=== PATIENT | male | born 1945 | race Hispanic/Latino ===

== ENCOUNTER 2018-04-17 13:02 | Inpatient (IN) | payer MEDICARE, OTHER ==
[2018-04-17 14:42] LABS: #Basophils 0.1 thou/uL (0.0-0.2); #Eosinphils 0.2 thou/uL (0.0-0.7); #Lymphocytes 1.3 thou/uL (1.20-3.40); #Monocytes 0.5 thou/uL (0.11-0.59); #Neutrophils 3.4 thou/uL (1.40-6.50); %Eosinophils 3.2 % (0.0-10.0); %Lymphocytes 23.9 % (21.0-51.0); %Monocytes 9.8 % (0.0-10.0); %Neutrophils 62.1 % (42.0-75.0); Hemoglobin 11.7 g/dL (14.0-18.0); Mean Corpuscular HGB CONC 31.6 g/dL (32.0-36.0); Mean Corpuscular Volume 91.8 fL (78.0-98.0); Mean Platelet Volume 7.9 fL (7.4-10.4); Platelet Count 148 thou/uL (130-400); RBC Distribution Width 12.4 % (11.5-14.5); Red Blood Cell (RBC) Count 4.03 mill/uL (4.70-6.10); White Blood Cell (WBC) Count 5.5 thou/uL (4.8-10.8)
[2018-04-17 15:05] LABS: ALT (SGPT) 22 U/L (8-55); AST (SGOT) 16 U/L (5-34); Albumin 4.1 g/dL (3.4-4.8); Alkaline Phosphatase 125 U/L (40-150); Anion Gap 14 mmol/L (10-20); BUN (Urea Nitrogen) 71 mg/dL (8.4-25.7); Bilirubin, Total 0.5 mg/dL (0.2-1.2); Calc. Creatinine Clearance 0 mL/min (70-130); Calcium 9.4 mg/dL (7.8-10.44); Carbon Dioxide 21 mmol/L (23-31); Chloride 110 mmol/L (98-107); Estimated GFR-MDRD 9; Globulin 3.3 g/dL (2.4-3.5); Glucose 86 mg/dL (80-115); Potassium 4.9 mmol/L (3.5-5.1); Protein, Total 7.4 g/dL (5.8-8.1); Sodium 140 mmol/L (136-145)
[2018-04-17] MEDS ORDERED: cloNIDine 0.1 MG TAB ONE (17:28)
[2018-04-17] MEDS ORDERED: hydrALAZINE 25 MG TAB PO SCH ×2 (18:30→22:30)
[2018-04-17 19:33] LABS: Bilirubin Negative (Negative); Blood, Urine Small (Negative); Clarity CLEAR (Clear); Glucose, Urine (Dipstick) Negative (Negative); Leukocyte Negative (Negative); Nitrite Negative (Negative); Protein, Urine (Dipstick) > or equal to 300 mg/dL (Neg-Trace); Specific Gravity, Urine 1.014 (1.002-1.036); Urobilinogen 0.2 mg/dL (0.2-1.0); pH, Urine 6.5 (5.0-9.0)
[2018-04-17 19:34] LABS: Bacteria/HPF None Seen HPF (None Seen); Hyaline Casts/LPF 0-3 HYALINE CAST LPF (0-3 Hyaline); Pathc Cast-AUWi Flag 0.58 (0-2.49); RBC/HPF 0-3 HPF (0-3); Squamous Epithelial 0-3 HPF (0-3); WBC/HPF 0-3 HPF (0-3)
[2018-04-17] MEDS ORDERED: hydrALAZINE 25 MG TAB ONE (20:05)
--- NOTE | 2018-04-17 20:47 | HP ---
PRIMARY CARE PHYSICIAN: Susana Zafar MD PAPER BAGS SEWING MACHINE OPERATOR,: Herman Centeno MD CHIEF COMPLAINT: Hyperkalemia. HISTORY OF PRESENT ILLNESS: This is a 72-year-old male with history of insulin-dependent diabetes mellitus and hypertension. He had blood drawn by Dr. Zafar that showed an elevated creatinine, greater than 5, and a potassium of 6.5. The patient does not remember ever seeing a microcomputer support specialist, but was apparently somehow given some Kayexalate by Dr. Tapia. The patient presented to the emergency room today for blood recheck. Potassium was down to 4.9 with the Kayexalate. Creatinine was further up at 6.13. Dr. Tapia was notified by the emergency room and asked to admit the patient for end-stage renal failure. The patient does report that he has been short of breath for the last 1-2 weeks. This is both at rest and with activity and with lying down flat. No other specific complaints at this time. PAST MEDICAL HISTORY: 1. Diabetes mellitus, insulin dependent. 2. Hypertension. 3. Now with renal failure, though the patient denies a previous history of renal failure. PAST SURGICAL HISTORY: None. SOCIAL HISTORY: No tobacco, alcohol, or illicit drug use. The patient is , and lives with his . FAMILY HISTORY: None. ALLERGIES: NO KNOWN DRUG ALLERGIES. CURRENT MEDICATIONS: 1. Hydralazine 100 mg twice a day. 2. Labetalol 200 mg twice a day. 3. Montelukast 10 mg daily. 4. Atorvastatin 20 mg daily. 5. Furosemide 20 mg daily. 6. Hydroxyzine 25 mg daily. 7. Dexilant 60 mg daily. 8. Levemir 30 units twice a day. REVIEW OF SYSTEMS: CONSTITUTIONAL: No fevers. He did have some chills earlier. EYES: No double vision or blurred vision. ENT: No congestion, drainage, or sore throat. CARDIOVASCULAR: No chest pain. No palpitations or racing heart. PULMONARY: He had shortness of breath for the last couple of weeks. No coughing or wheezing. GASTROINTESTINAL: No abdominal pain. No nausea or vomiting. No diarrhea or constipation. GENITOURINARY: He has not noticed any decrease in his urine output. No dysuria or hematuria. MUSCULOSKELETAL: No muscle aches or joint pains. SKIN: No rashes or other lesions he has noted. NEUROLOGIC: He has not noticed any numbness, tingling, or focal weakness. PHYSICAL EXAMINATION: VITAL SIGNS: Blood pressure 176/90, pulse 78, respirations 18, temperature 97.8 , O2 saturation 98% on room air. GENERAL: This is a well-developed, well-nourished male, in no acute distress. HEENT: Pupils are equal, round, and reactive to light. Oropharynx is clear without lesions, erythema, or exudate. NECK: Supple. No lymphadenopathy. No thyroid nodules or enlargement. No JVD. HEART: Regular rate and rhythm. No murmurs, rubs, or gallops. LUNGS: Clear to auscultation bilaterally. No wheezes, crackles, or rhonchi. ABDOMEN: Soft, nontender to palpation. Normoactive bowel sounds. No hepatosplenomegaly or other masses. EXTREMITIES: No clubbing, cyanosis, or edema. SKIN: No rashes or lesions noted. NEUROLOGIC: Intact strength and sensation in all extremities. No facial droop. LABORATORY DATA: CBC with a hemoglobin of 11.7, hematocrit 37.0. The rest is normal. Complete metabolic panel is notable for chloride of 110, carbon dioxide of 21, BUN of 71, creatinine of 6.13. Potassium is currently 4.9. Creatine kinase is 194. The rest of the complete metabolic panel is normal. Troponins negative x2. Renal ultrasound done in the ER, radiologist's report is not back yet. ASSESSMENT: 1. Stage 5 kidney disease with hyperkalemia, improved with Kayexalate. Concern for end-stage renal disease, he is going to require dialysis. The patient does have some evidence by symptoms and by his severely elevated blood pressures over 200 systolic on arrival, that he is volume overloaded as well. He did receive some fluids in the ER per Dr. Taipa's orders. We will go ahead and stop any further fluids at this point doing his blood pressure under better control. We will write for the consents for hemodialysis and recheck patient's potassium in the morning. 2. Hypertensive urgency. On arrival, now down with 0.1 of clonidine and 100 mg of hydralazine orally in the ER. Troponins are negative. We will monitor closely and give p.r.n. medications along with resuming patient's home medications. I am going to hold off on the Lasix of course. 3. Diabetes mellitus, insulin dependent. The patient's blood sugar is low normal at this time. He is having worsening renal function. So, I am concerned about the effects of the insulin. We will give him a half dose of insulin at this time, 15 units twice a day of Lantus and we will monitor his blood sugars before meals and at bedtime and we will bring this up if it is needed while he is in the hospital. 4. Gastrointestinal prophylaxis. We will resume PPI. 5. Deep venous thrombosis prophylaxis. We will put the patient on SCDs while in bed. 6. code status. I did discuss this with the patient with the drug safety coordinator in the ER. The patient is a full code. Should he be incapacitated, his would be his medical decision maker, her name is Esha Henderson. Job ID: [id number] MTDD
--- NOTE | 2018-04-17 20:53 | ULT ---
RENAL ULTRASOUND: 04/17/18 HISTORY: Flank pain. Real time imaging of the right and left kidneys were performed. The right kidney measures 10.7 cm in size but is of increased echogenicity with cortical thinning. There are cysts involving the mid to up per pole and lower pole regions. The largest lower pole cyst measuring 2.3 cm. The left kidney is kurt y difficult to visualize due to bowel gas. It is not obstructed. It measures approximately 9.1 cm in length. It also shows increased echogenicity. Bladder region is unremarkable. IMPRESSION: Technically difficult exam. Increased echogenicity to both kidneys suggests underlying medical renal parenchymal disease. No obstruction. Right sided renal cyst. POS: EMIR
[2018-04-17] MEDS ORDERED: Sodium Chloride 0.9% 1,000 ML IV SCH (21:58)
[2018-04-17] MEDS ORDERED: hydrALAZINE 20 MG/ML VIAL SLOW IVP PRN (21:59)
[2018-04-17] MEDS ORDERED: Dextrose 50% Abboject 50 ML SYRINGE SLOW IVP PRN (21:59)
[2018-04-17] MEDS ORDERED: HumaLOG 300 UNITS/3 ML VIAL SC PRN (21:59)
[2018-04-17] MEDS ORDERED: cloNIDine 0.1 MG TAB PO PRN (21:59)
[2018-04-17] MEDS ORDERED: Ondansetron ODT 4 MG TAB PO PRN (21:59)
[2018-04-17] MEDS ORDERED: Ondansetron PF 4 MG/2 ML Vial IVP PRN (21:59)
[2018-04-17] MEDS ORDERED: Acetaminophen 325 MG TAB PO PRN (21:59)
[2018-04-17] MEDS ORDERED: Acetaminophen 650 MG Suppository PR PRN (21:59)
[2018-04-17] MEDS ORDERED: Dextrose 5% in Water 1,000 ML IV PRN (21:59)
[2018-04-17] MEDS ORDERED: Labetalol 100 MG TAB PO SCH (22:30)
[2018-04-17] MEDS ORDERED: Atorvastatin Calcium 20 MG TAB PO SCH (22:30)
[2018-04-17] MEDS ORDERED: Insulin Glargine 15 UNITS in Pre-Filled Syringe 1 EACH SC SCH (22:30)
[2018-04-17] MEDS ORDERED: Tuberculin PPD 0.1 ML VIAL I-DERMAL SCH (22:30)
[2018-04-17] MEDS ORDERED: Montelukast Sodium 10 mg Tablet PO SCH (22:30)
--- NOTE | 2018-04-17 22:57 | CON ---
DATE OF CONSULTATION: HISTORY OF PRESENT ILLNESS: Mr. Henderson is a 72-year-old [place] male, Icelandic speaking, who was admitted due to his chronic renal failure. A few days ago, he was noted to be hyperkalemic. He was given Kayexalate with lactulose at that time. His creatinine was rechecked and it had shown to have further progressed to a most recent value of 6.13. His GFR is now noted at 10 mL/minute. He was advised admission for possible initiation of dialysis. For the moment, the patient has been admitted for empiric volume repletion to see if I could improve his renal function. He is here with his son, Angelito. We are here to follow up the patient for further management of his chronic renal failure. REVIEW OF SYSTEMS: No chest pain. Appetite is decreased. Energy level is decreased. No nausea. No vomiting. No tremors. No asterixis. No productive cough. No fever or chills. No gross hematuria. No dysuria. No urinary frequency. No hematochezia. No melena. No hematemesis. No syncopal episode. No fever or chills. HOME MEDICATIONS: 1. Levemir 30 units subcu b.i.d. 2. Hydralazine 100 mg twice a day. 3. Labetalol 200 mg twice a day. 4. Singulair 10 mg once a day. 5. Atorvastatin 20 mg tablet at bedtime. 6. Furosemide 20 mg daily-on hold. 7. Hydroxyzine 25 mg daily p.r.n. 8. Dexilant 60 mg daily. PAST MEDICAL HISTORY: 1. Chronic renal failure from a presumed diabetic nephropathy. 2. Type 2 diabetes mellitus. 3. Hypertension. 4. Hyperlipidemia. 5. Gastroesophageal reflux disease. PAST SURGICAL HISTORY: Status post exploratory laparotomy. SOCIAL HISTORY: The patient is . Lives in [place]. He has five children. 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 Alcohol, none. Smoked for 20 years, 1/2 pack a day. No IV drug abuse. Education, 12th grade. FAMILY HISTORY: No family history of ESRD. ALLERGIES: NONE. TRAUMA: None. IMMUNIZATION: Unknown. HOSPITALIZATIONS: Please see past medical history. PHYSICAL EXAMINATION: VITAL SIGNS: Blood pressure is 160/90, with a heart rate of 69, weight 168 pounds, height 5 feet 2 inches, BMI 30. GENERAL: Awake, alert, comfortable, not in distress. SKIN: Adequate turgor. HEENT: Pinkish conjunctivae. Anicteric sclerae. No neck mass. No carotid bruits. No JVD. CHEST: No deformities. LUNGS: Clear breath sounds. HEART: Normal sinus rhythm. No murmur. No gallops or rubs. ABDOMEN: Globular, soft, nontender. No masses. EXTREMITIES: No edema no deformities. NEUROLOGICAL: Moving all extremities. No tremors. No asterixis. No ataxia. LABORATORY DATA: April 17, 2018; white count 5.5, hemoglobin 11.7. Sodium 140, potassium 4.9, chloride 110, carbon dioxide 21, BUN 71, creatinine 6.13, GFR 9 mL/minute. AST 16, ALT 22, CPK 194, troponin I 0.016. Urinalysis showed protein greater than 300, rbc's 0-3, wbc's 0-3. Renal ultrasound showed no obstruction, increased echogenicity of both kidneys. ASSESSMENT AND PLAN: 1. Chronic renal failure-with the proteinuria and longstanding history of diabetes mellitus, consider diabetic nephropathy. Please note, his GFR is noted to be at 9 mL/minute. We will try to empiric volume replete this patient to see if we can get some more improvement in the renal function. If there is no significant improvement, my bias is to consider dialyzing this patient. Please note that the renal ultrasound showed increased echogenicity of the kidneys. 2. Hypertension. Continue current BP medications. 3. Type 2 diabetes mellitus, currently on Levemir 30 units subcu b.i.d. 4. We will go ahead and check phosphorus and PTH with this patient. 5. Case discussed at length with the patient and his son, Angelito. Job ID: [id number]
[2018-04-18 05:12] LABS: #Eosinphils 0.1 thou/uL (0.0-0.7); #Lymphocytes 0.9 thou/uL (1.20-3.40); #Monocytes 0.4 thou/uL (0.11-0.59); #Neutrophils 2.7 thou/uL (1.40-6.50); %Basophils 0.8 % (0.0-1.0); %Eosinophils 1.8 % (0.0-10.0); %Lymphocytes 21.6 % (21.0-51.0); %Monocytes 10.6 % (0.0-10.0); %Neutrophils 65.1 % (42.0-75.0); Hemoglobin 10.6 g/dL (14.0-18.0); Mean Corpuscular HGB CONC 32.1 g/dL (32.0-36.0); Mean Corpuscular Hemoglobin 29.2 pg (27.0-31.0); Mean Corpuscular Volume 90.9 fL (78.0-98.0); Platelet Count 135 thou/uL (130-400); RBC Distribution Width 12.3 % (11.5-14.5); Red Blood Cell (RBC) Count 3.62 mill/uL (4.70-6.10); White Blood Cell (WBC) Count 4.2 thou/uL (4.8-10.8)
[2018-04-18 05:35] LABS: Phosphorus 5.7 mg/dL (2.3-4.7)
[2018-04-18 05:36] LABS: Anion Gap 13 mmol/L (10-20); BUN (Urea Nitrogen) 73 mg/dL (8.4-25.7); Calc. Creatinine Clearance 12 mL/min (70-130); Calcium 8.5 mg/dL (7.8-10.44); Carbon Dioxide 18 mmol/L (23-31); Chloride 114 mmol/L (98-107); Estimated GFR-MDRD 10; Glucose 126 mg/dL (80-115); Sodium 141 mmol/L (136-145)
[2018-04-18 05:58] LABS: HBSAB Concentration 1.12 mIU/mL; HBSAg Index 0.21 S/CO (0-0.99); Hep B Core Total Ab Non-Reactive (NonReactive); Hep B Core Total Index 0.08 S/CO (0-0.79); Hep B Surf AB Non-Reactive (NonReactive); Hep B Surf Ag Non-Reactive S/CO (NonReactive); Hep C IgG Ab Non-Reactive (NonReactive); Hep C Index 0.08 S/CO (0-0.79)
[2018-04-18] MEDS: hydrALAZINE 25 MG TAB PO SCH ×3 (08:52→20:33)
[2018-04-18] MEDS: Labetalol 100 MG TAB PO SCH ×2 (08:53→20:34)
[2018-04-18] MEDS: Sodium Chloride 0.9% 1,000 ML IV SCH ×2 (09:00→20:36)
[2018-04-18] MEDS ORDERED: Prevnar 13-Val Conj/PF 0.5 ML SYRINGE IM ONE (09:00)
--- NOTE | 2018-04-18 09:20 | PDOC.PN ---
- Subjective Encounter Start Date: 04/18/18 Encounter Start Time: 12:10 Subjective: No prolems overnight. No SOB. No abdominal pain. Says he feels a little bit -: weak, sunitha left leg. - Objective Resuscitation Status - Order Detail: 04/17/18 19:38 Resuscitation Status Routine Resuscitation Status: FULL: Full Resuscitation Discussed with: Patient ASHLEE Reviewed: Yes Vital Signs & Weight: Vital Signs (12 hours) Temp Pulse Resp BP BP BP Pulse Ox 04/18/18 08:53 77 159/73 H 04/18/18 08:52 77 159/73 H 04/18/18 07:44 97.6 F 77 18 159/73 H 96 04/18/18 04:02 97.7 F 92 16 136/67 95 04/17/18 23:29 97.6 F 88 16 133/65 95 04/17/18 22:54 75 142/66 H Weight Weight 164 lb I&O: 04/17/18 04/18/18 04/19/18 06:59 06:59 06:59 Intake Total 1100 Balance 1100 Result Diagrams: 04/18/18 04:45 04/18/18 04:45 Additional Labs: Accuchecks 04/17/18 22:52 POC Glucose 179 H Phys Exam - Physical Examination Constitutional: NAD HEENT: moist MMs Respiratory: no wheezing, no rales, no rhonchi Cardiovascular: RRR, no significant murmur Gastrointestinal: soft, non-tender, positive bowel sounds Musculoskeletal: no edema Neurological: non-focal, moves all 4 limbs 5/5 strength in all extremities Psychiatric: normal affect, A&O x 3 Dx/Plan (1) Acute renal failure superimposed on stage 5 chronic kidney disease, not on chronic dialysis Code(s): N17.9 - ACUTE KIDNEY FAILURE, UNSPECIFIED; N18.5 - CHRONIC KIDNEY DISEASE, STAGE 5 Status: Acute Comment: attempting treatment with hydration , dialysis if no improvement with fluids (2) Hypertensive urgency Code(s): I16.0 - HYPERTENSIVE URGENCY Status: Resolved (3) Hypertension Code(s): I10 - ESSENTIAL (PRIMARY) HYPERTENSION Status: Chronic Qualifiers: Hypertension type: essential hypertension Qualified Code(s): I10 - Essential (primary) hypertension Comment: improved control, will continue to titrate medications (4) Diabetes mellitus, insulin dependent (IDDM), controlled Code(s): E11.9 - TYPE 2 DIABETES MELLITUS WITHOUT COMPLICATIONS; Z79.4 - SETTER OUT (CURRENT) USE OF INSULIN Status: Chronic Comment: currently on half home insulin, BS ok, will increase back to 30unit BID if blood sugars are elevated (5) Hyperkalemia Code(s): E87.5 - HYPERKALEMIA Status: Resolved - Plan cont current plan of care, out of bed/ambulate, DVT proph w/SCDs * . - Discharge Day Encounter end time: 12:20
[2018-04-18] MEDS: Insulin Glargine 15 UNITS in Pre-Filled Syringe 1 EACH SC SCH ×2 (09:26→20:35)
--- NOTE | 2018-04-18 09:33 | PRG ---
DATE OF SERVICE: 04/18/2018 SUBJECTIVE: Mr. Henderson is a 72-year-old male with chronic renal failure from presumed diabetic nephropathy. He was admitted due to the worsening renal dysfunction. He has been started with volume repletion. This was done to see if I could get any more improvement with the renal function. If no significant improvement, the patient will be considered for dialytic intervention. No new complaints today. No chest pain or shortness of breath. OBJECTIVE: VITAL SIGNS: Blood pressure is 159/73, heart rate 77, respiratory rate 18, temperature 97.6, and pulse ox 96%. GENERAL: Awake, alert, comfortable, not in distress. SKIN: Adequate turgor. HEENT: Slightly pale conjunctivae. Anicteric sclerae. No neck mass. No carotid bruits. No JVD. CHEST: No deformities. LUNGS: Clear breath sounds. No wheezing. No crackles. HEART: Normal sinus rhythm. No murmurs, gallops, or rubs. ABDOMEN: Globular, soft, nontender. No masses. EXTREMITIES: No edema. No deformities. MEDICATIONS: Medications of April 18, 2018, was reviewed. LABORATORY DATA: Laboratories of April 18, 2018, white count 4.2, hemoglobin 10.6, sodium 141, potassium 4, chloride 114, carbon dioxide 18, BUN 73, creatinine 5.87, GFR 10 mL/minute, glucose 126, calcium 8.5, phosphorus 5.7, PTH 679. ASSESSMENT AND PLAN: 1. Chronic renal failure from diabetic nephropathy. Continue empiric volume repletion to see where the renal function will plateau. If no significant improvement, consider initiating dialysis if the patient will agree to this. 2. Hyperphosphatemia. Renvela 800 mg one tablet t.i.d. with meals. 3. Secondary hyperparathyroidism. Calcitriol 0.25 mcg tablet daily was started. Overall, prognosis remains guarded. Continue normal saline at 100 mL/h. Job ID: [id number]
[2018-04-18] MEDS: Calcitriol 0.25 MCG CAP PO SCH (10:30)
[2018-04-18] MEDS: Sevelamer Carbonate 800 MG TAB PO SCH ×2 (12:40→18:03)
[2018-04-18] MEDS: HumaLOG 300 UNITS/3 ML VIAL SC PRN (12:44)
[2018-04-18] MEDS: Atorvastatin Calcium 20 MG TAB PO SCH (20:33)
[2018-04-18] MEDS: Montelukast Sodium 10 mg Tablet PO SCH (21:32)
[2018-04-19] MEDS: Sodium Chloride 0.9% 1,000 ML IV SCH ×2 (06:22→17:29)
[2018-04-19 07:04] LABS: #Basophils 0.1 thou/uL (0.0-0.2); #Eosinphils 0.1 thou/uL (0.0-0.7); #Lymphocytes 0.9 thou/uL (1.20-3.40); #Monocytes 0.5 thou/uL (0.11-0.59); #Neutrophils 3.6 thou/uL (1.40-6.50); %Basophils 1.1 % (0.0-1.0); %Eosinophils 2.1 % (0.0-10.0); %Monocytes 10.3 % (0.0-10.0); %Neutrophils 69.5 % (42.0-75.0); Hemoglobin 9.9 g/dL (14.0-18.0); Mean Corpuscular HGB CONC 32.2 g/dL (32.0-36.0); Mean Corpuscular Hemoglobin 28.6 pg (27.0-31.0); Mean Corpuscular Volume 88.8 fL (78.0-98.0); Mean Platelet Volume 7.9 fL (7.4-10.4); Platelet Count 137 thou/uL (130-400); RBC Distribution Width 12.4 % (11.5-14.5); Red Blood Cell (RBC) Count 3.47 mill/uL (4.70-6.10); White Blood Cell (WBC) Count 5.2 thou/uL (4.8-10.8)
[2018-04-19 07:21] LABS: Anion Gap 13 mmol/L (10-20); BUN (Urea Nitrogen) 65 mg/dL (8.4-25.7); Calc. Creatinine Clearance 14 mL/min (70-130); Calcium 8.3 mg/dL (7.8-10.44); Carbon Dioxide 16 mmol/L (23-31); Chloride 117 mmol/L (98-107); Estimated GFR-MDRD 10; Glucose 107 mg/dL (80-115); Potassium 3.8 mmol/L (3.5-5.1); Sodium 142 mmol/L (136-145)
[2018-04-19] MEDS: Sodium Bicarbonate Tab 325 MG TAB PO SCH ×3 (09:24→20:13)
[2018-04-19] MEDS: hydrALAZINE 25 MG TAB PO SCH ×3 (09:27→20:11)
[2018-04-19] MEDS: Calcitriol 0.25 MCG CAP PO SCH (09:28)
[2018-04-19] MEDS: Labetalol 100 MG TAB PO SCH ×2 (09:28→20:12)
[2018-04-19] MEDS: Sevelamer Carbonate 800 MG TAB PO SCH ×3 (09:28→17:30)
[2018-04-19] MEDS: Insulin Glargine 15 UNITS in Pre-Filled Syringe 1 EACH SC SCH ×2 (09:29→20:13)
--- NOTE | 2018-04-19 09:35 | PDOC.PN ---
- Subjective Encounter Start Date: 04/19/18 Encounter Start Time: 10:10 Subjective: No SOB, no chest pain. No other complaints. Patient resistent to the -: idea of dialysis. Concern for likely rebound with hyperkalemia or -: volume overload if d/c. - Objective Resuscitation Status - Order Detail: 04/17/18 19:38 Resuscitation Status Routine Resuscitation Status: FULL: Full Resuscitation Discussed with: Patient MAR Reviewed: Yes Vital Signs & Weight: Vital Signs (12 hours) Temp Pulse Resp BP Pulse Ox 04/19/18 08:00 97.8 F 73 18 153/66 H 93 L Weight Weight 171 lb 15.369 oz I&O: 04/18/18 04/19/18 04/20/18 06:59 06:59 06:59 Intake Total 1100 3040 Output Total 1470 Balance 1100 1570 Result Diagrams: 04/19/18 06:35 04/19/18 06:35 Additional Labs: Accuchecks 04/19/18 04/18/18 04/18/18 05:16 20:45 16:51 POC Glucose 78 92 114 H 04/18/18 11:44 POC Glucose 183 H Phys Exam - Physical Examination Constitutional: NAD HEENT: moist MMs Respiratory: no wheezing, no rales, no rhonchi, clear to auscultation bilateral Cardiovascular: RRR, no significant murmur Gastrointestinal: soft Neurological: non-focal, moves all 4 limbs Psychiatric: normal affect, A&O x 3 Dx/Plan (1) Acute renal failure superimposed on stage 5 chronic kidney disease, not on chronic dialysis Code(s): N17.9 - ACUTE KIDNEY FAILURE, UNSPECIFIED; N18.5 - CHRONIC KIDNEY DISEASE, STAGE 5 Status: Acute Comment: attempting treatment with hydration , will monitor over the weekend (2) Hypertensive urgency Code(s): I16.0 - HYPERTENSIVE URGENCY Status: Resolved (3) Hypertension Code(s): I10 - ESSENTIAL (PRIMARY) HYPERTENSION Status: Chronic Qualifiers: Hypertension type: essential hypertension Qualified Code(s): I10 - Essential (primary) hypertension Comment: improved control, will continue to titrate medications (4) Diabetes mellitus, insulin dependent (IDDM), controlled Code(s): E11.9 - TYPE 2 DIABETES MELLITUS WITHOUT COMPLICATIONS; Z79.4 - CORRECTION (CURRENT) USE OF INSULIN Status: Chronic Comment: currently on half home insulin, BS ok, will increase back to 30unit BID if blood sugars are elevated (5) Hyperkalemia Code(s): E87.5 - HYPERKALEMIA Status: Resolved - Plan cont current plan of care Dr. Tapia monitoring over the weekend. * . - Discharge Day Encounter end time: 10:20
--- NOTE | 2018-04-19 10:04 | PRG ---
DATE OF SERVICE: 04/19/2018 SUBJECTIVE: Mr. Henderson is a 72-year-old male, non-Kittitian speaking, was admitted for an acute kidney injury on top of his chronic renal failure. GFR was noted to be less than 10 mL/minute. Empiric volume repletion was done to see if I could get any more renal improvement. Please note, his renal ultrasound showed a lot of echogenicity. In addition, urine showed proteinuria, and he has a longstanding history of diabetes mellitus making diabetic nephropathy most likely. He is tolerating the current IV fluid. No other complaints. No chest pain or shortness of breath. OBJECTIVE: VITAL SIGNS: Blood pressure 153/66, heart rate 73, respiratory rate 18, temperature 97.8, and pulse ox 93%. GENERAL: Awake, alert, comfortable, not in distress. SKIN: Adequate turgor. HEENT: He has pinkish conjunctivae. Anicteric sclerae. NECK: No neck mass. No carotid bruits. No JVD. CHEST: No deformities. LUNGS: Clear breath sounds. HEART: Normal sinus rhythm. No murmurs, gallops, or rubs. ABDOMEN: Globular, soft, nontender. No masses. EXTREMITIES: No edema. No deformities. MEDICATIONS: Medications of 04/19/2018 was reviewed. LABORATORY DATA: Laboratories of 04/19/2018, white count 5.2, hemoglobin 9.9. Sodium 142, potassium 3.8, chloride 117, carbon dioxide 16, BUN 65, creatinine 5.47, glucose 107, calcium 8.3. ASSESSMENT AND PLAN: 1. Anemia. Start ferrous sulfate 325 mg tablet b.i.d. 2. Secondary hyperparathyroidism/hyperphosphatemia-started on medications. 3. Acute kidney injury/chronic renal failure. Minimal improvement of GFR. Continue IV hydration. If GFR is not significantly improved by weekend, consider initiating dialysis. I will be getting in touch with the patient's family regarding dialysis. The patient is still hesitant to consider dialysis. Overall, I agree with current management. Recheck basic metabolic panel and CBC in a.m. Job ID: [id number]
[2018-04-19] MEDS: HumaLOG 300 UNITS/3 ML VIAL SC PRN (13:29)
[2018-04-19] MEDS: Ferrous Sulfate 325 MG TAB PO SCH (17:30)
[2018-04-19] MEDS: Atorvastatin Calcium 20 MG TAB PO SCH (20:11)
[2018-04-19] MEDS: Montelukast Sodium 10 mg Tablet PO SCH (20:13)
[2018-04-20] MEDS: Sodium Chloride 0.9% 1,000 ML IV SCH ×2 (03:35→15:16)
[2018-04-20 07:37] LABS: #Eosinphils 0.2 thou/uL (0.0-0.7); #Monocytes 0.6 thou/uL (0.11-0.59); #Neutrophils 3.6 thou/uL (1.40-6.50); %Basophils 0.5 % (0.0-1.0); %Eosinophils 3.4 % (0.0-10.0); %Lymphocytes 18.3 % (21.0-51.0); %Monocytes 10.3 % (0.0-10.0); %Neutrophils 67.5 % (42.0-75.0); Hemoglobin 9.8 g/dL (14.0-18.0); Mean Corpuscular HGB CONC 32.4 g/dL (32.0-36.0); Mean Corpuscular Volume 89.5 fL (78.0-98.0); Platelet Count 136 thou/uL (130-400); RBC Distribution Width 12.5 % (11.5-14.5); Red Blood Cell (RBC) Count 3.38 mill/uL (4.70-6.10); White Blood Cell (WBC) Count 5.4 thou/uL (4.8-10.8)
[2018-04-20 07:56] LABS: Anion Gap 11 mmol/L (10-20); BUN (Urea Nitrogen) 51 mg/dL (8.4-25.7); Calc. Creatinine Clearance 15 mL/min (70-130); Calcium 8.3 mg/dL (7.8-10.44); Carbon Dioxide 17 mmol/L (23-31); Chloride 115 mmol/L (98-107); Estimated GFR-MDRD 11; Glucose 94 mg/dL (80-115); Potassium 3.8 mmol/L (3.5-5.1); Sodium 139 mmol/L (136-145)
[2018-04-20] MEDS: Labetalol 100 MG TAB PO SCH ×2 (08:18→21:15)
[2018-04-20] MEDS: Sodium Bicarbonate Tab 325 MG TAB PO SCH ×3 (08:18→21:09)
[2018-04-20] MEDS: Ferrous Sulfate 325 MG TAB PO SCH ×2 (08:19→16:26)
[2018-04-20] MEDS: hydrALAZINE 25 MG TAB PO SCH ×3 (08:19→21:10)
[2018-04-20] MEDS: Calcitriol 0.25 MCG CAP PO SCH (08:19)
[2018-04-20] MEDS: Sevelamer Carbonate 800 MG TAB PO SCH ×3 (08:19→16:26)
[2018-04-20] MEDS: Insulin Glargine 15 UNITS in Pre-Filled Syringe 1 EACH SC SCH ×2 (08:22→21:16)
--- NOTE | 2018-04-20 12:23 | PDOC.PN ---
- Subjective Encounter Start Date: 04/20/18 Encounter Start Time: 09:45 -: old records requested/rev Patient seen and examined. No new complaints. No overnight events - Objective Resuscitation Status - Order Detail: 04/17/18 19:38 Resuscitation Status Routine Resuscitation Status: FULL: Full Resuscitation Discussed with: Patient ASHLEE Reviewed: Yes Vital Signs & Weight: Vital Signs (12 hours) Temp Pulse Resp BP BP BP Pulse Ox 04/20/18 11:30 97.5 F L 71 16 151/73 H 97 04/20/18 08:19 72 137/62 04/20/18 08:18 72 137/62 04/20/18 08:10 97.9 F 72 18 137/62 94 L 04/20/18 08:00 94 L 04/20/18 05:00 145/67 H 04/20/18 04:00 97.9 F 74 18 179/63 H 96 04/20/18 00:29 98.1 F 74 18 145/66 H 96 Weight Weight 171 lb 15.369 oz I&O: 04/19/18 04/20/18 04/21/18 06:59 06:59 06:59 Intake Total 3040 3300 Output Total 1470 600 Balance 1570 2700 Result Diagrams: 04/20/18 06:49 04/20/18 06:49 Additional Labs: Accuchecks 04/20/18 04/20/18 04/19/18 11:34 04:32 19:28 POC Glucose 133 H 82 177 H 04/19/18 04/19/18 16:40 12:54 POC Glucose 138 H 191 H Phys Exam - Physical Examination Constitutional: NAD HEENT: PERRLA, moist MMs, sclera anicteric Neck: no JVD, supple Respiratory: no wheezing, no rales, no rhonchi Cardiovascular: RRR, no significant murmur, no rub Gastrointestinal: soft, non-tender, no distention, positive bowel sounds Musculoskeletal: no edema, pulses present Neurological: non-focal, normal sensation Lymphatic: no nodes Psychiatric: normal affect, A&O x 3 Skin: no rash, normal turgor Dx/Plan (1) Acute renal failure superimposed on stage 5 chronic kidney disease, not on chronic dialysis Code(s): N17.9 - ACUTE KIDNEY FAILURE, UNSPECIFIED; N18.5 - CHRONIC KIDNEY DISEASE, STAGE 5 Status: Acute Comment: attempting treatment with hydration , will monitor over the weekend (2) Anemia of renal disease Code(s): N18.9 - CHRONIC KIDNEY DISEASE, UNSPECIFIED; D63.1 - ANEMIA IN CHRONIC KIDNEY DISEASE Status: Chronic (3) Diabetes mellitus, insulin dependent (IDDM), controlled Code(s): E11.9 - TYPE 2 DIABETES MELLITUS WITHOUT COMPLICATIONS; 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 Status: Chronic Comment: currently on half home insulin, BS ok, will increase back to 30unit BID if blood sugars are elevated (4) Hypertension Code(s): I10 - ESSENTIAL (PRIMARY) HYPERTENSION Status: Chronic Qualifiers: Hypertension type: essential hypertension Qualified Code(s): I10 - Essential (primary) hypertension Comment: improved control, will continue to titrate medications (5) Hyperkalemia Code(s): E87.5 - HYPERKALEMIA Status: Resolved (6) Hypertensive urgency Code(s): I16.0 - HYPERTENSIVE URGENCY Status: Resolved - Plan cont current plan of care * medication reviewed as below * symptomatic treatment * pt to decide about HD * nephrology on board. Review of Systems - Review of Systems ENT: negative: Ear Pain, Ear Discharge, Nose Pain, Nose Discharge, Nose Congestion, Mouth Pain, Mouth Swelling, Throat Pain, Throat Swelling, Other Respiratory: negative: Cough, Dry, Shortness of Breath, Hemoptysis, SOB with Excertion, Pleuritic Pain, Sputum, Wheezing Cardiovascular: negative: chest pain, palpitations, orthopnea, paroxysmal nocturnal dyspnea, edema, light headedness, other Gastrointestinal: negative: Nausea, Vomiting, Abdominal Pain, Diarrhea, Constipation, Melena, Hematochezia, Other Genitourinary: negative: Dysuria, Frequency, Incontinence, Hematuria, Retention , Other Musculoskeletal: negative: Neck Pain, Shoulder Pain, Arm Pain, Back Pain, Hand Pain, Leg Pain, Foot Pain, Other - Medications/Allergies Allergies/Adverse Reactions: Allergies Allergy/AdvReac Type Severity Reaction Status Date / Time No Known Allergies Allergy Verified 04/17/18 23:38 Medications: Current Medications Acetaminophen (Tylenol) 650 mg PO Q4H PRN PRN Reason: Headache/Fever/Mild Pain (1-3) Acetaminophen (Tylenol) [address] Q4H PRN PRN Reason: Headache/Fever/Mild Pain (1-3) Atorvastatin Calcium (Lipitor) 20 mg PO [facility] Last Admin: 04/19/18 20:11 Dose: 20 mg Calcitriol (Rocaltrol) 0.25 mcg PO DAILY [facility] Last Admin: 04/20/18 08:19 Dose: 0.25 mcg Clonidine (Catapres) 0.1 mg PO Q4H PRN PRN Reason: Severe Hypertension Dextrose/Water (Dextrose 50%) 25 gm SLOW IVP PRN PRN PRN Reason: Hypoglycemia Ferrous Sulfate (Feosol) 325 mg PO BID-[facility] Last Admin: 04/20/18 08:19 Dose: 325 mg Glucagon (Glucagon) 1 mg IM PRN PRN PRN Reason: Hypoglycemia Guaifenesin/Dextromethorphan (Robitussin Dm) 15 ml PO Q4H PRN PRN Reason: Cough Hydralazine HCl (Apresoline) 10 mg SLOW IVP Q4H PRN PRN Reason: Severe Hypertension Hydralazine HCl (Apresoline) 100 mg PO TID [facility] Last Admin: 04/20/18 08:19 Dose: 100 mg Dextrose/Water (D5w) 1,000 mls @ 0 mls/hr IV .Q0M PRN PRN Reason: Hypoglycemia Insulin Glargine 15 units/ (Miscellaneous Medication) 0.15 mls @ 0 mls/hr SC [facility] Last Admin: 04/19/18 20:13 Dose: 0.15 mls Insulin Glargine 15 units/ (Miscellaneous Medication) 0.15 mls @ 0 mls/hr [facility] Last Admin: 04/20/18 08:22 Dose: 0.15 mls Sodium Chloride (Normal Saline 0.9%) 1,000 mls @ 100 mls/hr IV .Q10H [facility] Last Admin: 04/20/18 03:35 Dose: 1,000 mls Insulin Human Lispro (Humalog) 0 units SC .MILD SLIDING SCALE PRN PRN Reason: Mild Correctional Scale Last Admin: 04/19/18 13:29 Dose: 2 unit Insulin Human Lispro (Humalog) 0 units SC .BEDTIME SLIDING SC PRN PRN Reason: Bedtime Correctional Scale Labetalol HCl (Labetalol Hcl) 10 mg SLOW IVP Q4H PRN PRN Reason: SBP Greater Than 180 Labetalol HCl (Normodyne) 200 mg PO BID [facility] Last Admin: 04/20/18 08:18 Dose: 200 mg Montelukast Sodium (Singulair) 10 mg PO QPM [facility] Last Admin: 04/19/18 20:13 Dose: 10 mg Ondansetron HCl (Zofran Odt) 4 mg PO Q6H PRN PRN Reason: Nausea/Vomiting Ondansetron HCl (Zofran) 4 mg IVP Q6H PRN PRN Reason: Nausea/Vomiting Last Admin: 04/19/18 10:19 Dose: 4 mg Pantoprazole Sodium (Protonix) 40 mg PO DAILY [facility] Last Admin: 04/20/18 08:20 Dose: 40 mg Senna/Docusate Sodium (Senokot S) 2 tab PO BID PRN PRN Reason: Constipation Sevelamer Carbonate (Renvela) 800 mg PO TID-[facility] Last Admin: 04/20/18 11:14 Dose: 800 mg Sodium Bicarbonate (Bicarbonate, Sodium) 650 mg PO TID [facility] Last Admin: 04/20/18 08:18 Dose: 650 mg Sodium Chloride (Flush - Normal Saline) 10 ml IVF Q12HR [facility] Last Admin: 04/20/18 08:20 Dose: Not Given Sodium Chloride (Flush - Normal Saline) 10 ml IVF PRN PRN PRN Reason: Saline Flush Tuberculin PPD (Aplisol) 0.1 ml I-DERMAL ONE [facility] Stop: 04/20/18 22:31 Last Admin: 04/18/18 08:49 Dose: 0.1 ml
--- NOTE | 2018-04-20 19:51 | PRG ---
DATE OF SERVICE: 04/20/2018 SERVICE: Renal Medicine. SUBJECTIVE: Mr. Henderson who was admitted due to acute kidney failure on top of his chronic renal failure. He was also initially noted to be hyperkalemic as an outpatient. Empiric volume repletion was done to see if we could improve the renal function to a satisfactory level. Creatinine has been slowly improving; however, the GFR has not dramatically improved. He came in with a GFR of 9 mL/minute and is currently now at 11 mL/minute. If GFR could be achieved, but more than 15 mL/minute, my bias is not to dialyze this patient. I have spoken with the patient several times regarding dialysis. He is still unsure whether to proceed with this. I will be getting in touch with the son, Angelito, this weekend. No other complaints. No chest pain or shortness of breath. OBJECTIVE: VITAL SIGNS: Blood pressure 133/80, heart rate 58, respiratory rate 18, temperature 97.6, and pulse ox 92%. GENERAL: Noted to be awake, alert, comfortable, not in distress. SKIN: Adequate turgor. HEENT: He has a pinkish conjunctivae. Anicteric sclerae. No neck mass. No carotid bruits. No JVD. CHEST: No deformities. LUNGS: Clear breath sounds. HEART: Normal sinus rhythm. No murmur. No gallops. No rubs. ABDOMEN: Globular, soft, nontender. No masses. EXTREMITIES: No edema. No deformities. MEDICATIONS: Of April 20, 2018, reviewed. LABORATORIES: Of April 20, 2018, sodium 139, potassium 3.8, chloride 105, carbon dioxide 17, BUN 51, creatinine 5.02, and GFR 11 mL/minute. White count 5.4 and hemoglobin 9.8. ASSESSMENT AND PLAN: 1. Chronic renal failure - slowly improving creatinine, but still in adequate GFR. If GFR is not significantly improved to at least 15 or greater, my bias is to pursue dialysis if the patient will agree. I will be discussing this issue with the patient's son, Angelito. For the moment, continue IV hydration. 2. Hypertension. Continue current BP medications. 3. Type 2 diabetes mellitus, on insulin regimen. 4. Hyperphosphatemia and secondary hyperparathyroidism. Calcitriol and Renvela have been started. Overall, agree with current management. Recheck basic metabolic panel and CBC in a.m. Job ID: [id number]
[2018-04-20] MEDS: Montelukast Sodium 10 mg Tablet PO SCH (21:10)
[2018-04-20] MEDS: Senokot S 8.6-50 MG TAB PO PRN (21:10)
[2018-04-20] MEDS: Atorvastatin Calcium 20 MG TAB PO SCH (21:10)
[2018-04-20] MEDS: Guaifenesin DM 100-10/5 ML UDCUP PO PRN (21:15)
[2018-04-21] MEDS: Sodium Chloride 0.9% 1,000 ML IV SCH ×4 (00:31→20:18)
[2018-04-21 07:26] LABS: #Basophils 0.1 thou/uL (0.0-0.2); #Eosinphils 0.2 thou/uL (0.0-0.7); #Lymphocytes 0.9 thou/uL (1.20-3.40); #Monocytes 0.6 thou/uL (0.11-0.59); #Neutrophils 4.5 thou/uL (1.40-6.50); %Eosinophils 2.9 % (0.0-10.0); %Monocytes 9.1 % (0.0-10.0); Hemoglobin 9.8 g/dL (14.0-18.0); Mean Corpuscular HGB CONC 32.7 g/dL (32.0-36.0); Mean Corpuscular Hemoglobin 29.8 pg (27.0-31.0); Mean Corpuscular Volume 91.3 fL (78.0-98.0); Platelet Count 122 thou/uL (130-400); RBC Distribution Width 12.4 % (11.5-14.5); Red Blood Cell (RBC) Count 3.27 mill/uL (4.70-6.10); White Blood Cell (WBC) Count 6.3 thou/uL (4.8-10.8)
[2018-04-21 07:43] LABS: Anion Gap 12 mmol/L (10-20); BUN (Urea Nitrogen) 47 mg/dL (8.4-25.7); Calc. Creatinine Clearance 17 mL/min (70-130); Calcium 8.1 mg/dL (7.8-10.44); Carbon Dioxide 15 mmol/L (23-31); Chloride 114 mmol/L (98-107); Estimated GFR-MDRD 13; Glucose 72 mg/dL (80-115); Potassium 3.8 mmol/L (3.5-5.1); Sodium 137 mmol/L (136-145)
[2018-04-21] MEDS: hydrALAZINE 25 MG TAB PO SCH ×3 (08:34→20:17)
[2018-04-21] MEDS: Calcitriol 0.25 MCG CAP PO SCH (08:34)
[2018-04-21] MEDS: Sevelamer Carbonate 800 MG TAB PO SCH ×3 (08:34→16:30)
[2018-04-21] MEDS: Ferrous Sulfate 325 MG TAB PO SCH ×2 (08:34→16:30)
[2018-04-21] MEDS: Labetalol 100 MG TAB PO SCH ×2 (08:35→20:17)
[2018-04-21] MEDS: Sodium Bicarbonate Tab 325 MG TAB PO SCH ×3 (08:35→20:18)
[2018-04-21] MEDS: Insulin Glargine 15 UNITS in Pre-Filled Syringe 1 EACH SC SCH ×2 (08:38→20:29)
[2018-04-21] MEDS: Senokot S 8.6-50 MG TAB PO PRN ×2 (08:46→20:17)
--- NOTE | 2018-04-21 09:50 | PDOC.PN ---
- Subjective Encounter Start Date: 04/21/18 Encounter Start Time: 08:40 Patient seen and examined. No new complaints. No overnight events - Objective Resuscitation Status - Order Detail: 04/17/18 19:38 Resuscitation Status Routine Resuscitation Status: FULL: Full Resuscitation Discussed with: Patient ASHLEE Reviewed: Yes Vital Signs & Weight: Vital Signs (12 hours) Temp Pulse Resp BP BP Pulse Ox 04/21/18 08:35 80 04/21/18 08:34 80 04/21/18 08:00 97.8 F 80 20 161/73 H 96 04/21/18 04:00 97.6 F 79 18 166/78 H 97 04/21/18 00:26 98 F 82 18 142/67 H 95 Weight Weight 171 lb 15.369 oz I&O: 04/20/18 04/21/18 04/22/18 06:59 06:59 06:59 Intake Total 3300 1300 Output Total 600 1100 Balance 2700 200 Result Diagrams: 04/21/18 06:30 04/21/18 06:30 Additional Labs: Accuchecks 04/21/18 04/20/18 04/20/18 04:29 19:32 15:34 POC Glucose 85 128 H 166 H 04/20/18 11:34 POC Glucose 133 H Phys Exam - Physical Examination Constitutional: NAD HEENT: PERRLA, moist MMs, sclera anicteric Neck: no JVD, supple Respiratory: no wheezing, no rales, no rhonchi Cardiovascular: RRR, no significant murmur, no rub Gastrointestinal: soft, non-tender, no distention, positive bowel sounds Musculoskeletal: no edema, pulses present Neurological: non-focal, normal sensation Lymphatic: no nodes Psychiatric: normal affect, A&O x 3 Skin: no rash, normal turgor Dx/Plan (1) Acute renal failure superimposed on stage 5 chronic kidney disease, not on chronic dialysis Code(s): N17.9 - ACUTE KIDNEY FAILURE, UNSPECIFIED; N18.5 - CHRONIC KIDNEY DISEASE, STAGE 5 Status: Acute Comment: attempting treatment with hydration , will monitor over the weekend (2) Anemia of renal disease Code(s): N18.9 - CHRONIC KIDNEY DISEASE, UNSPECIFIED; D63.1 - ANEMIA IN CHRONIC KIDNEY DISEASE Status: Chronic (3) Diabetes mellitus, insulin dependent (IDDM), controlled Code(s): E11.9 - TYPE 2 DIABETES MELLITUS WITHOUT COMPLICATIONS; Z79.4 - RESIDENTIAL (CURRENT) USE OF INSULIN Status: Chronic Comment: currently on half home insulin, BS ok, will increase back to 30unit BID if blood sugars are elevated (4) Hypertension Code(s): I10 - ESSENTIAL (PRIMARY) HYPERTENSION Status: Chronic Qualifiers: Hypertension type: essential hypertension Qualified Code(s): I10 - Essential (primary) hypertension Comment: improved control, will continue to titrate medications (5) Hyperkalemia Code(s): E87.5 - HYPERKALEMIA Status: Resolved (6) Hypertensive urgency Code(s): I16.0 - HYPERTENSIVE URGENCY Status: Resolved - Plan cont current plan of care * renal function slowly improving * medication reviewed as below * symptomatic treatment * nephrology following * continue gentle IVF * watch for fluid overload. Review of Systems - Review of Systems ENT: negative: Ear Pain, Ear Discharge, Nose Pain, Nose Discharge, Nose Congestion, Mouth Pain, Mouth Swelling, Throat Pain, Throat Swelling, Other Respiratory: negative: Cough, Dry, Shortness of Breath, Hemoptysis, SOB with Excertion, Pleuritic Pain, Sputum, Wheezing Cardiovascular: negative: chest pain, palpitations, orthopnea, paroxysmal nocturnal dyspnea, edema, light headedness, other Gastrointestinal: negative: Nausea, Vomiting, Abdominal Pain, Diarrhea, Constipation, Melena, Hematochezia, Other Genitourinary: negative: Dysuria, Frequency, Incontinence, Hematuria, Retention , Other Musculoskeletal: negative: Neck Pain, Shoulder Pain, Arm Pain, Back Pain, Hand Pain, Leg Pain, Foot Pain, Other - Medications/Allergies Allergies/Adverse Reactions: Allergies Allergy/AdvReac Type Severity Reaction Status Date / Time No Known Allergies Allergy Verified 04/17/18 23:38 Medications: Current Medications Acetaminophen (Tylenol) 650 mg PO Q4H PRN PRN Reason: Headache/Fever/Mild Pain (1-3) Acetaminophen (Tylenol) 650 mg [place] Q4H PRN PRN Reason: Headache/Fever/Mild Pain (1-3) Atorvastatin Calcium (Lipitor) 20 mg PO [facility] Last Admin: 04/20/18 21:10 Dose: 20 mg Calcitriol (Rocaltrol) 0.25 mcg PO DAILY [facility] Last Admin: 04/21/18 08:34 Dose: 0.25 mcg Clonidine (Catapres) 0.1 mg PO Q4H PRN PRN Reason: Severe Hypertension Dextrose/Water (Dextrose 50%) 25 gm SLOW IVP PRN PRN PRN Reason: Hypoglycemia Ferrous Sulfate (Feosol) 325 mg PO BID-[facility] Last Admin: 04/21/18 08:34 Dose: 325 mg Glucagon (Glucagon) 1 mg IM PRN PRN PRN Reason: Hypoglycemia Guaifenesin/Dextromethorphan (Robitussin Dm) 15 ml PO Q4H PRN PRN Reason: Cough Last Admin: 04/20/18 21:15 Dose: 15 ml Hydralazine HCl (Apresoline) 10 mg SLOW IVP Q4H PRN PRN Reason: Severe Hypertension Hydralazine HCl (Apresoline) 100 mg PO TID [facility] Last Admin: 04/21/18 08:34 Dose: 100 mg Dextrose/Water (D5w) 1,000 mls @ 0 mls/hr IV .Q0M PRN PRN Reason: Hypoglycemia Insulin Glargine 15 units/ (Miscellaneous Medication) 0.15 mls @ 0 mls/hr SC [facility] Last Admin: 04/20/18 21:16 Dose: 0.15 mls Insulin Glargine 15 units/ (Miscellaneous Medication) 0.15 mls @ 0 mls/hr SC [facility] Last Admin: 04/21/18 08:38 Dose: 0.15 mls Sodium Chloride (Normal Saline 0.9%) 1,000 mls @ 100 mls/hr IV .Q10H [facility] Last Admin: 04/21/18 00:31 Dose: 1,000 mls Insulin Human Lispro (Humalog) 0 units SC .MILD SLIDING SCALE PRN PRN Reason: Mild Correctional Scale Last Admin: 04/19/18 13:29 Dose: 2 unit Insulin Human Lispro (Humalog) 0 units SC .BEDTIME SLIDING SC PRN PRN Reason: Bedtime Correctional Scale Labetalol HCl (Labetalol Hcl) 10 mg SLOW IVP Q4H PRN PRN Reason: SBP Greater Than 180 Labetalol HCl (Normodyne) 200 mg PO BID [facility] Last Admin: 04/21/18 08:35 Dose: 200 mg Montelukast Sodium (Singulair) 10 mg PO QPM [facility] Last Admin: 04/20/18 21:10 Dose: 10 mg Ondansetron HCl (Zofran Odt) 4 mg PO Q6H PRN PRN Reason: Nausea/Vomiting Last Admin: 04/21/18 08:38 Dose: 4 mg Ondansetron HCl (Zofran) 4 mg IVP Q6H PRN PRN Reason: Nausea/Vomiting Last Admin: 04/19/18 10:19 Dose: 4 mg Pantoprazole Sodium (Protonix) 40 mg PO DAILY [facility] Last Admin: 04/21/18 08:35 Dose: 40 mg Senna/Docusate Sodium (Senokot S) 2 tab PO BID PRN PRN Reason: Constipation Last Admin: 04/21/18 08:46 Dose: 2 tab Sevelamer Carbonate (Renvela) 800 mg PO TID-[facility] Last Admin: 04/21/18 08:34 Dose: 800 mg Sodium Bicarbonate (Bicarbonate, Sodium) 650 mg PO TID [facility] Last Admin: 04/21/18 08:35 Dose: 650 mg Sodium Chloride (Flush - Normal Saline) 10 ml IVF Q12HR [facility] Last Admin: 04/21/18 08:35 Dose: Not Given Sodium Chloride (Flush - Normal Saline) 10 ml IVF PRN PRN PRN Reason: Saline Flush
[2018-04-21] MEDS: HumaLOG 300 UNITS/3 ML VIAL SC PRN (12:04)
--- NOTE | 2018-04-21 12:05 | PRG ---
DATE OF SERVICE: 04/21/2018 SERVICE: Renal Medicine. SUBJECTIVE: Mr. Henderson is a 72-year-old male, who was admitted due to his worsening renal dysfunction. His initial creatinine was noted more than 6 mg%. We initiated IV hydration to see if we could improve his creatinine to the best value. Renal ultrasound showed increased echogenicity. Over the last several days with IV hydration, his renal function is slowly improving. The most recent creatinine is noted at 4.54 with a GFR of 13 mL/minute. My plan is to at least achieve a GFR of at least 15 mL/minute or greater. If we cannot achieve this, we probably should consider starting dialysis with this patient. No other complaints today, doing well. OBJECTIVE: VITAL SIGNS: Blood pressure 161/73, heart rate 80, respiratory rate 20, temperature 97.8, pulse ox 96%. GENERAL: Noted to be awake, alert, comfortable, not in distress. SKIN: Adequate turgor. HEENT: The patient has pinkish conjunctivae. Anicteric sclerae. NECK: No neck mass. No carotid bruits. No JVD. CHEST: No deformities. LUNGS: Clear breath sounds. No wheezing. No crackles. HEART: Normal sinus rhythm. No murmur. No gallops. No rubs. ABDOMEN: Globular, soft, nontender, no masses. EXTREMITIES: No edema. MEDICATIONS: Of 04/21/18 was reviewed. LABORATORY DATA: Of April 21, 2018, sodium 137, potassium 3.8, chloride 114, carbon dioxide 15, BUN 47, creatinine 4.54, GFR 13 mL/minute, glucose 72, calcium 8.1. White count 6.3, hemoglobin 9.8. ASSESSMENT AND PLAN: 1. Anemia, on ferrous sulfate 325 mg b.i.d. 2. Chronic renal failure - secondary to diabetic nephropathy, slowly improving. GFR is 13 mL/minute. Continue IV hydration. 3. Hyperphosphatemia, on Renvela 800 mg tablet t.i.d. 4. Secondary hyperparathyroidism - Calcitriol has been initiated. Continue current management. Recheck basic metabolic panel and CBC in a.m. Job ID: [id number] MTDD
[2018-04-21] MEDS: Atorvastatin Calcium 20 MG TAB PO SCH (20:17)
[2018-04-21] MEDS: Montelukast Sodium 10 mg Tablet PO SCH (20:18)
[2018-04-22 07:02] LABS: #Eosinphils 0.1 thou/uL (0.0-0.7); #Monocytes 0.5 thou/uL (0.11-0.59); #Neutrophils 3.5 thou/uL (1.40-6.50); %Basophils 0.2 % (0.0-1.0); %Eosinophils 2.6 % (0.0-10.0); %Lymphocytes 19.7 % (21.0-51.0); %Monocytes 10.5 % (0.0-10.0); Hemoglobin 9.4 g/dL (14.0-18.0); Mean Corpuscular HGB CONC 31.9 g/dL (32.0-36.0); Mean Corpuscular Hemoglobin 29.2 pg (27.0-31.0); Mean Corpuscular Volume 91.6 fL (78.0-98.0); Platelet Count 118 thou/uL (130-400); RBC Distribution Width 12.4 % (11.5-14.5); Red Blood Cell (RBC) Count 3.22 mill/uL (4.70-6.10); White Blood Cell (WBC) Count 5.2 thou/uL (4.8-10.8)
[2018-04-22 07:08] LABS: Anion Gap 13 mmol/L (10-20); BUN (Urea Nitrogen) 42 mg/dL (8.4-25.7); Calc. Creatinine Clearance 16 mL/min (70-130); Calcium 8.1 mg/dL (7.8-10.44); Carbon Dioxide 15 mmol/L (23-31); Chloride 115 mmol/L (98-107); Estimated GFR-MDRD 13; Glucose 107 mg/dL (80-115); Potassium 3.9 mmol/L (3.5-5.1); Sodium 139 mmol/L (136-145)
[2018-04-22] MEDS: hydrALAZINE 25 MG TAB PO SCH ×3 (07:59→20:52)
[2018-04-22] MEDS: Sevelamer Carbonate 800 MG TAB PO SCH ×3 (07:59→17:13)
[2018-04-22] MEDS: Senokot S 8.6-50 MG TAB PO PRN ×2 (07:59→20:57)
[2018-04-22] MEDS: Ferrous Sulfate 325 MG TAB PO SCH ×2 (07:59→17:13)
[2018-04-22] MEDS: Labetalol 100 MG TAB PO SCH ×2 (07:59→20:52)
[2018-04-22] MEDS: Sodium Bicarbonate Tab 325 MG TAB PO SCH ×3 (08:00→20:52)
[2018-04-22] MEDS: Calcitriol 0.25 MCG CAP PO SCH (08:00)
[2018-04-22] MEDS: Insulin Glargine 15 UNITS in Pre-Filled Syringe 1 EACH SC SCH ×2 (08:00→21:01)
--- NOTE | 2018-04-22 09:33 | PDOC.PN ---
- Subjective Encounter Start Date: 04/22/18 Encounter Start Time: 08:00 Patient seen and examined. No new complaints. No overnight events - Objective Resuscitation Status - Order Detail: 04/17/18 19:38 Resuscitation Status Routine Resuscitation Status: FULL: Full Resuscitation Discussed with: Diane ROSADO Reviewed: Yes Vital Signs & Weight: Vital Signs (12 hours) Temp Pulse Resp BP BP BP Pulse Ox 04/22/18 07:59 77 170/77 H 04/22/18 07:50 98.1 F 77 20 170/77 H 96 04/22/18 05:00 98.1 F 69 19 167/74 H 95 04/22/18 00:00 98.2 F 85 19 147/67 H 95 Weight Weight 171 lb 15.369 oz I&O: 04/21/18 04/22/18 04/23/18 06:59 06:59 06:59 Intake Total 1300 3667 Output Total 1100 1700 Balance 200 1967 Result Diagrams: 04/22/18 06:29 04/22/18 06:29 Additional Labs: Accuchecks 04/22/18 04/22/18 04/21/18 06:15 05:28 20:23 POC Glucose 103 64 L 123 H 04/21/18 04/21/18 16:09 10:36 POC Glucose 92 183 H Phys Exam - Physical Examination Constitutional: NAD HEENT: PERRLA, moist MMs, sclera anicteric Neck: no JVD, supple Respiratory: no wheezing, no rales, no rhonchi Cardiovascular: RRR, no significant murmur, no rub Gastrointestinal: soft, non-tender, no distention, positive bowel sounds Musculoskeletal: no edema, pulses present Neurological: non-focal, normal sensation, moves all 4 limbs Lymphatic: no nodes Psychiatric: normal affect, A&O x 3 Skin: no rash, normal turgor Dx/Plan (1) Acute renal failure superimposed on stage 5 chronic kidney disease, not on chronic dialysis Code(s): N17.9 - ACUTE KIDNEY FAILURE, UNSPECIFIED; N18.5 - CHRONIC KIDNEY DISEASE, STAGE 5 Status: Acute Comment: attempting treatment with hydration , will monitor over the weekend (2) Anemia of renal disease Code(s): N18.9 - CHRONIC KIDNEY DISEASE, UNSPECIFIED; D63.1 - ANEMIA IN CHRONIC KIDNEY DISEASE Status: Chronic (3) Diabetes mellitus, insulin dependent (IDDM), controlled Code(s): E11.9 - TYPE 2 DIABETES MELLITUS WITHOUT COMPLICATIONS; 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: Chronic Comment: currently on half home insulin, BS ok, will increase back to 30unit BID if blood sugars are elevated (4) Hypertension Code(s): I10 - ESSENTIAL (PRIMARY) HYPERTENSION Status: Chronic Qualifiers: Hypertension type: essential hypertension Qualified Code(s): I10 - Essential (primary) hypertension Comment: improved control, will continue to titrate medications (5) Hyperkalemia Code(s): E87.5 - HYPERKALEMIA Status: Resolved (6) Hypertensive urgency Code(s): I16.0 - HYPERTENSIVE URGENCY Status: Resolved - Plan cont current plan of care * renal function seems stabilized at this level * on gentle IVF * unsure he will need HD, nephrology following * will consider discharge nephrology ok * medication reviewed as below * symptomatic treatment. Review of Systems - Review of Systems ENT: negative: Ear Pain, Ear Discharge, Nose Pain, Nose Discharge, Nose Congestion, Mouth Pain, Mouth Swelling, Throat Pain, Throat Swelling, Other Respiratory: negative: Cough, Dry, Shortness of Breath, Hemoptysis, SOB with Excertion, Pleuritic Pain, Sputum, Wheezing Cardiovascular: negative: chest pain, palpitations, orthopnea, paroxysmal nocturnal dyspnea, edema, light headedness, other Gastrointestinal: negative: Nausea, Vomiting, Abdominal Pain, Diarrhea, Constipation, Melena, Hematochezia, Other Genitourinary: negative: Dysuria, Frequency, Incontinence, Hematuria, Retention , Other Musculoskeletal: negative: Neck Pain, Shoulder Pain, Arm Pain, Back Pain, Hand Pain, Leg Pain, Foot Pain, Other - Medications/Allergies Allergies/Adverse Reactions: Allergies Allergy/AdvReac Type Severity Reaction Status Date / Time No Known Allergies Allergy Verified 04/17/18 23:38 Medications: Current Medications Acetaminophen (Tylenol) 650 mg PO Q4H PRN PRN Reason: Headache/Fever/Mild Pain (1-3) Acetaminophen (Tylenol) 650 mg [place] Q4H PRN PRN Reason: Headache/Fever/Mild Pain (1-3) Atorvastatin Calcium (Lipitor) 20 mg PO HS [facility] Last Admin: 04/21/18 20:17 Dose: 20 mg Calcitriol (Rocaltrol) 0.25 mcg PO DAILY [facility] Last Admin: 04/22/18 08:00 Dose: 0.25 mcg Clonidine (Catapres) 0.1 mg PO Q4H PRN PRN Reason: Severe Hypertension Dextrose/Water (Dextrose 50%) 25 gm SLOW IVP PRN PRN PRN Reason: Hypoglycemia Ferrous Sulfate (Feosol) 325 mg PO BID-[facility] Last Admin: 04/22/18 07:59 Dose: 325 mg Glucagon (Glucagon) 1 mg IM PRN PRN PRN Reason: Hypoglycemia Guaifenesin/Dextromethorphan (Robitussin Dm) 15 ml PO Q4H PRN PRN Reason: Cough Last Admin: 04/20/18 21:15 Dose: 15 ml Hydralazine HCl (Apresoline) 10 mg SLOW IVP Q4H PRN PRN Reason: Severe Hypertension Hydralazine HCl (Apresoline) 100 mg PO TID [facility] Last Admin: 04/22/18 07:59 Dose: 100 mg Dextrose/Water (D5w) 1,000 mls @ 0 mls/hr IV .Q0M PRN PRN Reason: Hypoglycemia Insulin Glargine 15 units/ (Miscellaneous Medication) 0.15 mls @ 0 mls/hr SC HS [facility] Last Admin: 04/21/18 20:29 Dose: 0.15 mls Insulin Glargine 15 units/ (Miscellaneous Medication) 0.15 mls @ 0 mls/hr SC QAM [facility] Last Admin: 04/22/18 08:00 Dose: 0.15 mls Sodium Chloride (Normal Saline 0.9%) 1,000 mls @ 100 mls/hr IV .Q10H [facility] Last Admin: 04/21/18 20:18 Dose: 1,000 mls Insulin Human Lispro (Humalog) 0 units SC .MILD SLIDING SCALE PRN PRN Reason: Mild Correctional Scale Last Admin: 04/21/18 12:04 Dose: 2 unit Insulin Human Lispro (Humalog) 0 units SC .BEDTIME SLIDING SC PRN PRN Reason: Bedtime Correctional Scale Labetalol HCl (Labetalol Hcl) 10 mg SLOW IVP Q4H PRN PRN Reason: SBP Greater Than 180 Labetalol HCl (Normodyne) 200 mg PO BID [facility] Last Admin: 04/22/18 07:59 Dose: 200 mg Montelukast Sodium (Singulair) 10 mg PO QPM [facility] Last Admin: 04/21/18 20:18 Dose: 10 mg Ondansetron HCl (Zofran Odt) 4 mg PO Q6H PRN PRN Reason: Nausea/Vomiting Last Admin: 04/21/18 08:38 Dose: 4 mg Ondansetron HCl (Zofran) 4 mg IVP Q6H PRN PRN Reason: Nausea/Vomiting Last Admin: 04/19/18 10:19 Dose: 4 mg Pantoprazole Sodium (Protonix) 40 mg PO DAILY [facility] Last Admin: 04/22/18 08:00 Dose: 40 mg Senna/Docusate Sodium (Senokot S) 2 tab PO BID PRN PRN Reason: Constipation Last Admin: 04/22/18 07:59 Dose: 2 tab Sevelamer Carbonate (Renvela) 800 mg PO TID-[facility] Last Admin: 04/22/18 07:59 Dose: 800 mg Sodium Bicarbonate (Bicarbonate, Sodium) 650 mg PO TID [facility] Last Admin: 04/22/18 08:00 Dose: 650 mg Sodium Chloride (Flush - Normal Saline) 10 ml IVF Q12HR [facility] Last Admin: 04/22/18 08:00 Dose: Not Given Sodium Chloride (Flush - Normal Saline) 10 ml IVF PRN PRN PRN Reason: Saline Flush
[2018-04-22] MEDS: Sodium Chloride 0.9% 1,000 ML IV SCH ×2 (17:28→19:00)
[2018-04-22] MEDS: Montelukast Sodium 10 mg Tablet PO SCH (20:52)
[2018-04-22] MEDS: Atorvastatin Calcium 20 MG TAB PO SCH (20:52)
[2018-04-23] MEDS: Sodium Chloride 0.9% 1,000 ML IV SCH (04:55)
[2018-04-23 08:04] LABS: #Basophils 0.1 thou/uL (0.0-0.2); #Eosinphils 0.2 thou/uL (0.0-0.7); #Lymphocytes 0.9 thou/uL (1.20-3.40); #Monocytes 0.5 thou/uL (0.11-0.59); #Neutrophils 4.1 thou/uL (1.40-6.50); %Lymphocytes 15.3 % (21.0-51.0); %Monocytes 8.9 % (0.0-10.0); %Neutrophils 70.7 % (42.0-75.0); Hemoglobin 9.4 g/dL (14.0-18.0); Mean Corpuscular HGB CONC 31.8 g/dL (32.0-36.0); Mean Corpuscular Hemoglobin 29.1 pg (27.0-31.0); Mean Corpuscular Volume 91.5 fL (78.0-98.0); Mean Platelet Volume 7.7 fL (7.4-10.4); Platelet Count 129 thou/uL (130-400); RBC Distribution Width 12.4 % (11.5-14.5); Red Blood Cell (RBC) Count 3.21 mill/uL (4.70-6.10); White Blood Cell (WBC) Count 5.8 thou/uL (4.8-10.8)
[2018-04-23 08:25] LABS: Anion Gap 11 mmol/L (10-20); BUN (Urea Nitrogen) 41 mg/dL (8.4-25.7); Calc. Creatinine Clearance 17 mL/min (70-130); Calcium 8.3 mg/dL (7.8-10.44); Carbon Dioxide 18 mmol/L (23-31); Chloride 116 mmol/L (98-107); Estimated GFR-MDRD 13; Glucose 80 mg/dL (80-115); Potassium 3.7 mmol/L (3.5-5.1); Sodium 141 mmol/L (136-145)
[2018-04-23] MEDS: hydrALAZINE 25 MG TAB PO SCH ×3 (08:48→20:11)
[2018-04-23] MEDS: Ferrous Sulfate 325 MG TAB PO SCH ×2 (08:49→17:12)
[2018-04-23] MEDS: Labetalol 100 MG TAB PO SCH ×2 (08:50→20:11)
[2018-04-23] MEDS: Sodium Bicarbonate Tab 325 MG TAB PO SCH ×3 (08:50→20:11)
[2018-04-23] MEDS: Insulin Glargine 15 UNITS in Pre-Filled Syringe 1 EACH SC SCH ×2 (08:51→21:28)
[2018-04-23] MEDS: Sevelamer Carbonate 800 MG TAB PO SCH ×3 (08:51→17:12)
[2018-04-23] MEDS: Calcitriol 0.25 MCG CAP PO SCH (08:51)
[2018-04-23] MEDS: Senokot S 8.6-50 MG TAB PO PRN (08:55)
--- NOTE | 2018-04-23 09:32 | PRG ---
DATE OF SERVICE: 04/23/2018 SUBJECTIVE: Mr. Henderson is a 72-year-old male with progressive azotemia, was admitted due to the worsening renal dysfunction. Empiric volume repletion was done to see if he will have any improvement with his renal function. The creatinine did improve slightly but never went to a GFR of 15 or greater. Most recent GFR is 13 mL/minute. 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 I have referred him to the dialysis nurses for an options visit. This is just to give him a choice that there is a peritoneal dialysis as well as hemodialysis. No new complaints today. OBJECTIVE: VITAL SIGNS: Blood pressure is 182/79, heart rate 78, respiratory rate 20, temperature 97.6, pulse ox 95%. GENERAL: Awake, alert, and comfortable, not in distress. SKIN: Adequate turgor. HEENT: He has a slightly pale conjunctivae. Anicteric sclerae. No neck mass. No carotid bruits. No JVD. CHEST: No deformities. LUNGS: Clear breath sounds. No wheezing. No crackles. HEART: Normal sinus rhythm. No murmurs, gallops, or rubs. ABDOMEN: Globular, soft, and nontender. No masses. EXTREMITIES: No edema. No deformities. MEDICATIONS: Medications of April 23, 2018, reviewed. LABORATORY DATA: Laboratories of April 23, 2018; white count 5.8, hemoglobin 9.4. Sodium 141, potassium 3.7, chloride - 105, carbon dioxide 18, BUN 41, creatinine 4.59, glucose 80, calcium 8.3. ASSESSMENT AND PLAN: 1. Chronic renal failure-relatively unimproved renal function. Consider initiating dialysis. We will have the patient option visit so he choose if he wants to do peritoneal dialysis or hemodialysis. Please note, he lives in [place] and will consider placing him at [place]. No other complaints. We will discontinue his IV fluid. 2. Hyperphosphatemia, on Renvela. 3. Secondary hyperparathyroidism. Calcitriol has been initiated. Job ID: [id number] [facility]
--- NOTE | 2018-04-23 11:54 | PDOC.PN ---
- Subjective Encounter Start Date: 04/23/18 Encounter Start Time: 08:30 Patient seen and examined. No new complaints. No overnight events - Objective Resuscitation Status - Order Detail: 04/17/18 19:38 Resuscitation Status Routine Resuscitation Status: FULL: Full Resuscitation Discussed with: Patient ASHLEE Reviewed: Yes Vital Signs & Weight: Vital Signs (12 hours) Temp Pulse Resp BP BP Pulse Ox 04/23/18 08:50 78 182/79 H 04/23/18 08:48 78 182/79 H 04/23/18 08:00 95 04/23/18 07:40 97.6 F 78 20 182/79 H 95 04/23/18 04:00 98.1 F 84 18 131/57 L 94 L 04/23/18 00:00 75 17 179/85 H Weight Weight 171 lb 15.369 oz I&O: 04/22/18 04/23/18 04/24/18 06:59 06:59 06:59 Intake Total 3667 3837 Output Total 1700 1800 Balance 1966 2036 Result Diagrams: 04/23/18 07:38 04/23/18 07:38 Additional Labs: Accuchecks 04/23/18 04/22/18 04/22/18 04:56 19:47 16:06 POC Glucose 95 139 H 142 H 04/22/18 11:30 POC Glucose 112 H Phys Exam - Physical Examination Constitutional: NAD HEENT: PERRLA, moist MMs, sclera anicteric Neck: no JVD, supple Respiratory: no wheezing, no rales, no rhonchi Cardiovascular: RRR, no significant murmur, no rub Gastrointestinal: soft, non-tender, no distention, positive bowel sounds Musculoskeletal: no edema, pulses present Neurological: non-focal, normal sensation, moves all 4 limbs Lymphatic: no nodes Psychiatric: normal affect, A&O x 3 Skin: no rash, normal turgor Dx/Plan (1) Acute renal failure superimposed on stage 5 chronic kidney disease, not on chronic dialysis Code(s): N17.9 - ACUTE KIDNEY FAILURE, UNSPECIFIED; N18.5 - CHRONIC KIDNEY DISEASE, STAGE 5 Status: Acute Comment: attempting treatment with hydration , will monitor over the weekend (2) Anemia of renal disease Code(s): N18.9 - CHRONIC KIDNEY DISEASE, UNSPECIFIED; D63.1 - ANEMIA IN CHRONIC KIDNEY DISEASE Status: Chronic (3) Diabetes mellitus, insulin dependent (IDDM), controlled Code(s): E11.9 - TYPE 2 DIABETES MELLITUS WITHOUT COMPLICATIONS; Z79.4 - CUSTODIAL (CURRENT) USE OF INSULIN Status: Chronic Comment: currently on half home insulin, BS ok, will increase back to 30unit BID if blood sugars are elevated (4) Hypertension Code(s): I10 - ESSENTIAL (PRIMARY) HYPERTENSION Status: Chronic Qualifiers: Hypertension type: essential hypertension Qualified Code(s): I10 - Essential (primary) hypertension Comment: improved control, will continue to titrate medications (5) Hyperkalemia Code(s): E87.5 - HYPERKALEMIA Status: Resolved (6) Hypertensive urgency Code(s): I16.0 - HYPERTENSIVE URGENCY Status: Resolved - Plan cont current plan of care, plan discussed w/ family * medication reviewed as below * symptomatic treatment * renal function improving * nephrology to decide if pt can be discharged soon or not. Review of Systems - Review of Systems ENT: negative: Ear Pain, Ear Discharge, Nose Pain, Nose Discharge, Nose Congestion, Mouth Pain, Mouth Swelling, Throat Pain, Throat Swelling, Other Respiratory: negative: Cough, Dry, Shortness of Breath, Hemoptysis, SOB with Excertion, Pleuritic Pain, Sputum, Wheezing Cardiovascular: negative: chest pain, palpitations, orthopnea, paroxysmal nocturnal dyspnea, edema, light headedness, other Gastrointestinal: negative: Nausea, Vomiting, Abdominal Pain, Diarrhea, Constipation, Melena, Hematochezia, Other Genitourinary: negative: Dysuria, Frequency, Incontinence, Hematuria, Retention , Other Musculoskeletal: negative: Neck Pain, Shoulder Pain, Arm Pain, Back Pain, Hand Pain, Leg Pain, Foot Pain, Other - Medications/Allergies Allergies/Adverse Reactions: Allergies Allergy/AdvReac Type Severity Reaction Status Date / Time No Known Allergies Allergy Verified 04/17/18 23:38 Medications: Current Medications Acetaminophen (Tylenol) 650 mg PO Q4H PRN PRN Reason: Headache/Fever/Mild Pain (1-3) Acetaminophen (Tylenol) 650 mg [place] Q4H PRN PRN Reason: Headache/Fever/Mild Pain (1-3) Atorvastatin Calcium (Lipitor) 20 mg PO HS [facility] Last Admin: 04/22/18 20:52 Dose: 20 mg Calcitriol (Rocaltrol) 0.25 mcg PO DAILY [facility] Last Admin: 04/23/18 08:51 Dose: 0.25 mcg Clonidine (Catapres) 0.1 mg PO Q4H PRN PRN Reason: Severe Hypertension Dextrose/Water (Dextrose 50%) 25 gm SLOW IVP PRN PRN PRN Reason: Hypoglycemia Ferrous Sulfate (Feosol) 325 mg PO BID-[facility] Last Admin: 04/23/18 08:49 Dose: 325 mg Glucagon (Glucagon) 1 mg IM PRN PRN PRN Reason: Hypoglycemia Guaifenesin/Dextromethorphan (Robitussin Dm) 15 ml PO Q4H PRN PRN Reason: Cough Last Admin: 04/20/18 21:15 Dose: 15 ml Hydralazine HCl (Apresoline) 10 mg SLOW IVP Q4H PRN PRN Reason: Severe Hypertension Hydralazine HCl (Apresoline) 100 mg PO TID [facility] Last Admin: 04/23/18 08:48 Dose: 100 mg Dextrose/Water (D5w) 1,000 mls @ 0 mls/hr IV .Q0M PRN PRN Reason: Hypoglycemia Insulin Glargine 15 units/ (Miscellaneous Medication) 0.15 mls @ 0 mls/hr SC [facility] Last Admin: 04/22/18 21:01 Dose: Not Given Insulin Glargine 15 units/ (Miscellaneous Medication) 0.15 mls @ 0 mls/[facility] Last Admin: 04/23/18 08:51 Dose: 0.15 mls Insulin Human Lispro (Humalog) 0 units SC .MILD SLIDING SCALE PRN PRN Reason: Mild Correctional Scale Last Admin: 04/21/18 12:04 Dose: 2 unit Insulin Human Lispro (Humalog) 0 units SC .BEDTIME SLIDING SC PRN PRN Reason: Bedtime Correctional Scale Labetalol HCl (Labetalol Hcl) 10 mg SLOW IVP Q4H PRN PRN Reason: SBP Greater Than 180 Labetalol HCl (Normodyne) 200 mg PO BID [facility] Last Admin: 04/23/18 08:50 Dose: 200 mg Montelukast Sodium (Singulair) 10 mg PO QPM [facility] Last Admin: 04/22/18 20:52 Dose: 10 mg Ondansetron HCl (Zofran Odt) 4 mg PO Q6H PRN PRN Reason: Nausea/Vomiting Last Admin: 04/21/18 08:38 Dose: 4 mg Ondansetron HCl (Zofran) 4 mg IVP Q6H PRN PRN Reason: Nausea/Vomiting Last Admin: 04/19/18 10:19 Dose: 4 mg Pantoprazole Sodium (Protonix) 40 mg PO DAILY [facility] Last Admin: 04/23/18 08:50 Dose: 40 mg Senna/Docusate Sodium (Senokot S) 2 tab PO BID PRN PRN Reason: Constipation Last Admin: 04/23/18 08:55 Dose: 2 tab Sevelamer Carbonate (Renvela) 800 mg PO TID-[facility] Last Admin: 04/23/18 08:51 Dose: 800 mg Sodium Bicarbonate (Bicarbonate, Sodium) 650 mg PO TID [facility] Last Admin: 04/23/18 08:50 Dose: 650 mg Sodium Chloride (Flush - Normal Saline) 10 ml IVF Q12HR [facility] Last Admin: 04/23/18 08:51 Dose: 10 ml Sodium Chloride (Flush - Normal Saline) 10 ml IVF PRN PRN PRN Reason: Saline Flush
--- NOTE | 2018-04-23 12:50 | PRG ---
DATE OF SERVICE: 04/22/2018 SUBJECTIVE: Mr. Henderson is a 72-year-old male was admitted due to his worse chronic renal failure. He was initiated on volume repletion to see if we could improve the renal function; however, the renal function has not satisfactorily improved. His GFR today remains at 13 mL/minute. I have discussed in the past with the family about initiating dialysis. At the present time, the patient is somewhat hesitant and will get in touch with the family again to consider dialysis and to translate it to the patient. No other complaints today. I will probably discontinue the patient's IV fluid. No complaints of chest pain or shortness of breath. OBJECTIVE: VITAL SIGNS: Blood pressure 170/77, heart rate 77, respiratory rate 20, and temperature 98.1. GENERAL: Noted to be awake, alert, comfortable, not in overt distress. SKIN: Adequate turgor. HEENT: He has a pinkish conjunctivae. Anicteric sclerae. No neck mass. No carotid bruits. No JVD. CHEST: No deformities. LUNGS: Clear breath sounds. HEART: Normal sinus rhythm. No murmur. No gallops. No rubs. ABDOMEN: Globular, soft, and nontender. No masses. EXTREMITIES: No edema. No deformities. MEDICATIONS: Medications of April 22, 2018, reviewed. LABORATORY DATA: Laboratories of April 22, 2018; sodium 139, potassium 3.9, chloride 115, carbon dioxide 15, BUN 42, creatinine 4.65, glucose 107, calcium 8.1. White count 5.2, hemoglobin 9.4. ASSESSMENT AND PLAN: 1. Chronic renal failure-renal function has not satisfactorily improved with volume repletion. We will discontinue IV fluid. Discussed with family about initiating dialysis. We will try to get in touch with the family. 2. Hypertension. Continue current BP medications. 3. Hyperphosphatemia, currently on Renvela. 4. Secondary hyperparathyroidism, calcitriol has been initiated. Overall agree with current management. [facility] ID[facility] [id number] [facility]
[2018-04-23] MEDS: Atorvastatin Calcium 20 MG TAB PO SCH (20:11)
[2018-04-23] MEDS: Montelukast Sodium 10 mg Tablet PO SCH (20:11)
[2018-04-23] MEDS: Fluticasone Propionate Nasal Spray 16 gm Bottle NASAL PRN (23:40)
[2018-04-24] MEDS: Ferrous Sulfate 325 MG TAB PO SCH ×2 (08:34→17:04)
[2018-04-24] MEDS: Sodium Bicarbonate Tab 325 MG TAB PO SCH ×3 (08:34→22:09)
[2018-04-24] MEDS: Calcitriol 0.25 MCG CAP PO SCH (08:35)
[2018-04-24] MEDS: Sevelamer Carbonate 800 MG TAB PO SCH ×3 (08:35→17:04)
[2018-04-24] MEDS: Labetalol 100 MG TAB PO SCH ×2 (08:35→22:18)
[2018-04-24] MEDS: Insulin Glargine 15 UNITS in Pre-Filled Syringe 1 EACH SC SCH ×2 (08:36→22:27)
[2018-04-24] MEDS: hydrALAZINE 25 MG TAB PO SCH ×3 (08:38→22:08)
[2018-04-24 09:00] LABS: Anion Gap 11 mmol/L (10-20); BUN (Urea Nitrogen) 39 mg/dL (8.4-25.7); Calc. Creatinine Clearance 17 mL/min (70-130); Calcium 8.6 mg/dL (7.8-10.44); Carbon Dioxide 18 mmol/L (23-31); Chloride 114 mmol/L (98-107); Estimated GFR-MDRD 13; Glucose 146 mg/dL (80-115); Potassium 3.6 mmol/L (3.5-5.1); Sodium 139 mmol/L (136-145)
--- NOTE | 2018-04-24 09:47 | PRG ---
DATE OF SERVICE: SUBJECTIVE: Mr. Henderson is a 72-year-old male, who was admitted for progressive renal failure. Empiric volume repletion was done with no significant improvement of renal function. For this reason, we will initiate dialysis. I spoke with the son and the patient, and they have agreed to proceed with hemodialysis. He did not prefer to do peritoneal dialysis. We will consult Surgery. No new complaints. No chest pain or shortness of breath. Please note, IV fluid has been discontinued. OBJECTIVE: VITAL SIGNS: Blood pressure 197/94, heart rate 76, respiratory rate 16, temperature 98.5, and pulse ox 95%. GENERAL: Noted to be awake, alert, comfortable, not in distress. SKIN: Adequate turgor. HEENT: He has a pinkish conjunctivae. Anicteric sclerae. No neck mass. No carotid bruits. No JVD. CHEST: No deformities. LUNGS: Clear breath sounds. No wheezing. No crackles. HEART: Normal sinus rhythm. No murmurs, gallops or rubs. ABDOMEN: Globular, soft, and nontender. No masses. EXTREMITIES: No edema. No deformities. MEDICATIONS: Medications of April 24, 2018, was reviewed. LABORATORY DATA: Laboratories of April 23, 2018, white count 5.8, hemoglobin 9.4; April 24, 2018, BUN 39, creatinine 4.54, GFR 13 mL/min, calcium 8.6, and potassium 3.6. ASSESSMENT AND PLAN: 1. Anemia, on ferrous sulfate. 2. Chronic renal failure - we will initiate hemodialysis. Surgery has been consulted for placement of a dialysis catheter and AV fistula. Consult keycase assembler for outpatient dialysis placement. 3. Secondary hyperparathyroidism, on calcitriol. 4. Hyperphosphatemia, currently Renvela. 5. Agree with current management. Job ID: [id number]
--- NOTE | 2018-04-24 10:33 | PDOC.PN ---
- Subjective Encounter Start Date: 04/24/18 Encounter Start Time: 08:45 Patient seen and examined. No new complaints. No overnight events - Objective Resuscitation Status - Order Detail: 04/17/18 19:38 Resuscitation Status Routine Resuscitation Status: FULL: Full Resuscitation Discussed with: Patient ASHLEE Reviewed: Yes Vital Signs & Weight: Vital Signs (12 hours) Temp Pulse Resp BP BP Pulse Ox 04/24/18 08:38 76 197/94 H 04/24/18 08:35 76 197/94 H 04/24/18 08:00 95 04/24/18 07:44 98.5 F 76 16 197/94 H 95 04/24/18 05:00 172/80 H 04/24/18 04:14 97.9 F 79 18 181/79 H 92 L 04/24/18 00:13 98.2 F 74 18 165/79 H 91 L Weight Weight 171 lb 15.369 oz I&O: 04/23/18 04/24/18 04/25/18 06:59 06:59 06:59 Intake Total 3837 1650 20 Output Total 1800 850 Balance 2037 1650 -830 Result Diagrams: 04/23/18 07:38 04/24/18 08:31 Additional Labs: Accuchecks 04/24/18 04/23/18 04/23/18 04:39 19:20 16:44 POC Glucose 82 125 H 93 04/23/18 12:13 POC Glucose 142 H Phys Exam - Physical Examination Constitutional: NAD HEENT: PERRLA, moist MMs, sclera anicteric Neck: no JVD, supple Respiratory: no wheezing, no rales, no rhonchi Cardiovascular: RRR, no significant murmur, no rub Gastrointestinal: soft, non-tender, no distention, positive bowel sounds Musculoskeletal: no edema, pulses present Neurological: non-focal, normal sensation Lymphatic: no nodes Psychiatric: normal affect, A&O x 3 Skin: no rash, normal turgor Dx/Plan (1) Acute renal failure superimposed on stage 5 chronic kidney disease, not on chronic dialysis Code(s): N17.9 - ACUTE KIDNEY FAILURE, UNSPECIFIED; N18.5 - CHRONIC KIDNEY DISEASE, STAGE 5 Status: Acute Comment: attempting treatment with hydration , will monitor over the weekend (2) Anemia of renal disease Code(s): N18.9 - CHRONIC KIDNEY DISEASE, UNSPECIFIED; D63.1 - ANEMIA IN CHRONIC KIDNEY DISEASE Status: Chronic (3) Diabetes mellitus, insulin dependent (IDDM), controlled Code(s): E11.9 - TYPE 2 DIABETES MELLITUS WITHOUT COMPLICATIONS; Z79.4 - FLAT KNITTER (CURRENT) USE OF INSULIN Status: Chronic Comment: currently on half home insulin, BS ok, will increase back to 30unit BID if blood sugars are elevated (4) Hypertension Code(s): I10 - ESSENTIAL (PRIMARY) HYPERTENSION Status: Chronic Qualifiers: Hypertension type: essential hypertension Qualified Code(s): I10 - Essential (primary) hypertension Comment: improved control, will continue to titrate medications (5) Hyperkalemia Code(s): E87.5 - HYPERKALEMIA Status: Resolved (6) Hypertensive urgency Code(s): I16.0 - HYPERTENSIVE URGENCY Status: Resolved - Plan cont current plan of care * as per nephro, once family ok, then pt will need dialysis access and needs to start on HD * medication reviewed as below * symptomatic treatment. Review of Systems - Review of Systems ENT: negative: Ear Pain, Ear Discharge, Nose Pain, Nose Discharge, Nose Congestion, Mouth Pain, Mouth Swelling, Throat Pain, Throat Swelling, Other Respiratory: negative: Cough, Dry, Shortness of Breath, Hemoptysis, SOB with Excertion, Pleuritic Pain, Sputum, Wheezing Cardiovascular: negative: chest pain, palpitations, orthopnea, paroxysmal nocturnal dyspnea, edema, light headedness, other Gastrointestinal: negative: Nausea, Vomiting, Abdominal Pain, Diarrhea, Constipation, Melena, Hematochezia, Other Genitourinary: negative: Dysuria, Frequency, Incontinence, Hematuria, Retention , Other Musculoskeletal: negative: Neck Pain, Shoulder Pain, Arm Pain, Back Pain, Hand Pain, Leg Pain, Foot Pain, Other - Medications/Allergies Allergies/Adverse Reactions: Allergies Allergy/AdvReac Type Severity Reaction Status Date / Time No Known Allergies Allergy Verified 04/17/18 23:38 Medications: Current Medications Acetaminophen (Tylenol) 650 mg PO Q4H PRN PRN Reason: Headache/Fever/Mild Pain (1-3) Acetaminophen (Tylenol) 650 mg [place] Q4H PRN PRN Reason: Headache/Fever/Mild Pain (1-3) Atorvastatin Calcium (Lipitor) 20 mg PO HS [facility] Last Admin: 04/23/18 20:11 Dose: 20 mg Calcitriol (Rocaltrol) 0.25 mcg PO DAILY [facility] Last Admin: 04/24/18 08:35 Dose: 0.25 mcg Clonidine (Catapres) 0.1 mg PO Q4H PRN PRN Reason: Severe Hypertension Dextrose/Water (Dextrose 50%) 25 gm SLOW IVP PRN PRN PRN Reason: Hypoglycemia Ferrous Sulfate (Feosol) 325 mg PO BID-[facility] Last Admin: 04/24/18 08:34 Dose: 325 mg Fluticasone Propionate (Flonase Nasal [place]) 0 gm NASAL DAILYPRN PRN PRN Reason: ALLERGIES Last Admin: 04/23/18 23:40 Dose: 1 spr Glucagon (Glucagon) 1 mg IM PRN PRN PRN Reason: Hypoglycemia Guaifenesin/Dextromethorphan (Robitussin Dm) 15 ml PO Q4H PRN PRN Reason: Cough Last Admin: 04/20/18 21:15 Dose: 15 ml Hydralazine HCl (Apresoline) 10 mg SLOW IVP Q4H PRN PRN Reason: Severe Hypertension Hydralazine HCl (Apresoline) 100 mg PO TID [facility] Last Admin: 04/24/18 08:38 Dose: 100 mg Dextrose/Water (D5w) 1,000 mls @ 0 mls/hr IV .Q0M PRN PRN Reason: Hypoglycemia Insulin Glargine 15 units/ (Miscellaneous Medication) 0.15 mls @ 0 mls/hr [place] [facility] Last Admin: 04/23/18 21:28 Dose: Not Given Insulin Glargine 15 units/ (Miscellaneous Medication) 0.15 mls @ 0 mls/hr [place] [facility] Last Admin: 04/24/18 08:36 Dose: 0.15 mls Insulin Human Lispro (Humalog) 0 units [place] .MILD SLIDING SCALE PRN PRN Reason: Mild Correctional Scale Last Admin: 04/21/18 12:04 Dose: 2 unit Insulin Human Lispro (Humalog) 0 units SC .BEDTIME SLIDING SC PRN PRN Reason: Bedtime Correctional Scale Labetalol HCl (Labetalol Hcl) 10 mg SLOW IVP Q4H PRN PRN Reason: SBP Greater Than 180 Labetalol HCl (Normodyne) 200 mg PO BID [facility] Last Admin: 04/24/18 08:35 Dose: 200 mg Montelukast Sodium (Singulair) 10 mg PO QPM [facility] Last Admin: 04/23/18 20:11 Dose: 10 mg Ondansetron HCl (Zofran Odt) 4 mg PO Q6H PRN PRN Reason: Nausea/Vomiting Last Admin: 04/21/18 08:38 Dose: 4 mg Ondansetron HCl (Zofran) 4 mg IVP Q6H PRN PRN Reason: Nausea/Vomiting Last Admin: 04/19/18 10:19 Dose: 4 mg Pantoprazole Sodium (Protonix) 40 mg PO DAILY [facility] Last Admin: 04/24/18 08:35 Dose: 40 mg Senna/Docusate Sodium (Senokot S) 2 tab PO BID PRN PRN Reason: Constipation Last Admin: 04/23/18 08:55 Dose: 2 tab Sevelamer Carbonate (Renvela) 800 mg PO TID-[facility] Last Admin: 04/24/18 08:35 Dose: 800 mg Sodium Bicarbonate (Bicarbonate, Sodium) 650 mg PO TID [facility] Last Admin: 04/24/18 08:34 Dose: 650 mg Sodium Chloride (Flush - Normal Saline) 10 ml IVF Q12HR [facility] Last Admin: 04/24/18 08:36 Dose: 10 ml Sodium Chloride (Flush - Normal Saline) 10 ml IVF PRN PRN PRN Reason: Saline Flush
[2018-04-24] MEDS ORDERED: PROPOFOL 200 MG/20 ML VIAL ONE (12:35)
[2018-04-24] MEDS ORDERED: ADMIXTURE FEE CHEMO IVPB SCH (14:45)
[2018-04-24] MEDS ORDERED: CEFAZOLIN IVPB SCH (14:45)
[2018-04-24] MEDS ORDERED: Heparin 10,000 UNITS/1 ML VIAL ONE (19:13)
[2018-04-24] MEDS ORDERED: Bupivacaine/Epinephrine 0.25% 30 ML VIAL ONE (19:13)
[2018-04-24] MEDS ORDERED: Lidocaine 2% PF 5 ML VIAL ONE (19:14)
[2018-04-24] MEDS ORDERED: Sodium Chloride 0.9% 20 ML ONE ×2 (19:14→20:36)
[2018-04-24] MEDS ORDERED: Propofol 500 MG/50 ML VIAL ONE (19:24)
[2018-04-24] MEDS ORDERED: Fentanyl 100 MCG/2 ML VIAL ONE (19:24)
[2018-04-24] MEDS ORDERED: Ondansetron HCl/PF 4 MG/2 ML Vial IVP PRN (20:47)
[2018-04-24] MEDS ORDERED: Meperidine HCl/PF 25 MG/ML VIAL SLOW IVP PRN (20:47)
[2018-04-24] MEDS ORDERED: Promethazine HCl 25 MG/ML VIAL IM PRN (20:47)
[2018-04-24] MEDS ORDERED: Promethazine HCl 25 MG/ML VIAL SLOW IVP PRN (20:47)
--- NOTE | 2018-04-24 21:29 | RAD ---
CHEST ONE VIEW: 04/24/18 HISTORY: Status post hemodialysis catheter placement. FINDINGS: Right sided hemosplit dialysis catheter with the distal tip projecting over the superior vena cava. H eart size is normal. Pulmonary vessels are prominent. Patchy interstitial and alveolar infiltrates li jennifer due to edema. No pneumothorax or osseous abnormalities. IMPRESSION: 1. Volume overload. 2. Right sided hemosplit dialysis catheter as described above. No pneumothorax. POS: [facility]
[2018-04-24] MEDS: Atorvastatin Calcium 20 MG TAB PO SCH (22:08)
[2018-04-24] MEDS: Montelukast Sodium 10 mg Tablet PO SCH (22:09)
--- NOTE | 2018-04-25 01:58 | CON ---
DATE OF CONSULTATION: REASON FOR CONSULT: Need for dialysis access. HISTORY: Mr. Henderson is a 72-year-old man who presented to the hospital with hyperkalemia. He states that he went to his doctor because he was having some trouble breathing and they did some lab work. He was found to have renal failure and hyperkalemia with a potassium of 6.1. He was given Kayexalate and came to the ER for a recheck and his potassium had come down. He was admitted and hydrated, but his renal function has not improved, so Dr. Tapia has decided to start hemodialysis. He has never had hemodialysis before and was unaware that he had any kidney problems. He is diabetic and hypertensive. PAST MEDICAL HISTORY: Diabetes, hypertension, hyperlipidemia, reflux and renal failure of unknown duration. PAST SURGICAL HISTORY: Ex lap. SOCIAL HISTORY: The patient is retired. He is here with his son. He has a history of tobacco abuse, but no IV drug use or alcohol abuse. FAMILY HISTORY: Noncontributory. ALLERGIES: HE REPORTS NO ALLERGIES. OUTPATIENT MEDICATIONS: Include: 1. Levemir. 2. Hydralazine. 3. Labetalol. 4. Singulair. 5. Atorvastatin. 6. Lasix. 7. Hydroxyzine. 8. Dexilant. REVIEW OF SYSTEMS: Ten-system review of systems is negative except per HPI. The patient states that he has not had any shortness of breath since coming to the hospital. He also denies nausea, vomiting, or other uremic symptoms. PHYSICAL EXAMINATION: VITAL SIGNS: The patient is afebrile and hypertensive. Other vital signs unremarkable. HEENT: Normal head. NECK: Supple without lymphadenopathy or thyroid nodules. HEART: Regular in its rate and rhythm. I do not appreciate any murmurs, rubs, or gallops. LUNGS: Clear to auscultation bilaterally. The breath sounds are somewhat distant. ABDOMEN: Soft, nontender, and nondistended. EXTREMITIES: Warm and well perfused. He has a left forearm IV and normal filling from both radial and ulnar arteries on Albert testing bilaterally. He is right-hand dominant. No good palpable forearm vein. No significant lower extremity edema. NEURO: No focal deficits. PSYCHIATRIC: Alert, oriented, and appropriate as far as I am able to determine using a [employer] foreign language teacher. LABORATORY DATA: Potassium has come back down to normal, but BUN and creatinine are still elevated. The GFR is around 13. Renal ultrasound was unremarkable. ASSESSMENT AND PLAN: Renal failure of unknown duration, which has not improved with hydration. Dr. Tapia has decided to start dialysis and he will need access for this. I have ordered vein mapping and that has not yet been done. I am going to place a tunneled hemodialysis catheter for immediate institution of dialysis. He has some swelling in his left arm, possibly related to his IV and since this is his nondominant arm, I would prefer to place the AV fistula on this side. Eventually, we may wait and see if the swelling goes down with dialysis. If he tolerates hemodialysis, we will likely plan on AV fistula in a couple of weeks. Job ID: [id number]
[2018-04-25] MEDS: Insulin Glargine 15 UNITS in Pre-Filled Syringe 1 EACH SC SCH ×2 (07:40→20:17)
[2018-04-25] MEDS: Labetalol 100 MG TAB PO SCH ×2 (09:14→20:10)
[2018-04-25] MEDS: Calcitriol 0.25 MCG CAP PO SCH (09:14)
[2018-04-25] MEDS: Ferrous Sulfate 325 MG TAB PO SCH ×2 (09:14→16:06)
[2018-04-25] MEDS: Sevelamer Carbonate 800 MG TAB PO SCH ×3 (09:15→16:06)
[2018-04-25] MEDS: Sodium Bicarbonate Tab 325 MG TAB PO SCH ×3 (09:15→20:10)
[2018-04-25] MEDS: hydrALAZINE 25 MG TAB PO SCH ×3 (09:15→20:08)
--- NOTE | 2018-04-25 09:55 | PRG ---
DATE OF SERVICE: 04/25/2018 SUBJECTIVE: Mr. Henderson is a 72-year-old male, who was admitted for progressive renal dysfunction. He has agreed to proceed with dialysis. A cuffed hemodialysis catheter was placed. I have scheduled him for hemodialysis for 1 hour today with subsequent increase in the time over the next several days. No new complaints. No chest pain or shortness of breath. He still has some nausea with decreased appetite. OBJECTIVE: VITAL SIGNS: Blood pressure 183/80, heart rate 73, respiratory rate 18, and temperature 98. GENERAL: Awake, ambulatory, comfortable, not in distress. SKIN: Adequate turgor. HEENT: Pinkish, slightly pale conjunctivae. Anicteric sclerae. NECK: No neck mass. No carotid bruits. No JVD. CHEST: No deformities. LUNGS: Clear breath sounds. No wheezing. No crackles. HEART: Normal sinus rhythm. No murmur. No gallops. No rubs. ABDOMEN: Globular, soft, and nontender. No masses. EXTREMITIES: No edema. No deformities. MEDICATIONS: Medications of April 25, 2018, reviewed. LABORATORY DATA: Laboratories of April 23, 2018; white count 5.8, hemoglobin 9.4. On April 24, 2018; BUN 39, creatinine 4.54, GFR 13 mL/minute, glucose 146, and calcium 8.6. ASSESSMENT AND PLAN: 1. Chronic renal failure - we will initiate hemodialysis. Fluid removal as tolerated. We will do 1-hour dialysis today, then we will do daily dialysis starting from today with 1 hourly incremental increase in dialysis treatment until which is 4 hours. 2. Congestive heart failure - chest x-ray shows volume overload. We will try to max out fluid removal only as tolerated by the patient. 3. Secondary hyperparathyroidism, on calcitriol. 4. Hyperphosphatemia, continuing Renvela. 5. Overall agree with current management. Job ID: [id number]
--- NOTE | 2018-04-25 11:54 | PDOC.OP ---
Operative Note - Operative Note Operative Note: PROCEDURE: Placement of right internal jugular tunneled hemodialysis catheter with ultrasound and fluoroscopic guidance. SURGEON: Merna Garcia M.D. DATE OF PROCEDURE: 04/24/2018 PREOPERATIVE DIAGNOSIS: Renal failure. POSTOPERATIVE DIAGNOSIS: Renal failure. HISTORY: Age and presented with renal failure of unknown duration. He did not improve adequately with hydration so the decision has been made to initiate dialysis. 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 PROCEDURE: After informed consent was obtained and appropriate preoperative antibiotics were administered, the patient was taken to the Operating Room, placed in the supine position and monitored anesthesia care was administered. The neck and chest were prepped and draped in a standard sterile fashion and the patient placed in Trendelenburg position. A sterile ultrasound probe was used to identify the patent compressible right IJ vein which was accessed under direct ultrasound guidance. A wire was threaded through the needle and confirmed by ultrasound to be within the patent compressible vessel with the tip in the vena cava by fluoroscopy. Local anesthesia was infused to the skin and subcutaneous tissues of the right neck and chest. An infraclavicular incision was made and a catheter tunneled from the infraclavicular to the right IJ access site. The right IJ was sequentially dilated over the wire following which a dilator and sheath were placed over the wire and the dilator and wire removed leaving the sheath in place. The catheter was tunneled through the sheath which was then split and removed leaving the catheter in place. This was confirmed by fluoroscopy to be in good position in the superior vena cava with no kinking of the course of the catheter. Both ports easily aspirated dark venous nonpulsatile blood and easily flushed without resistance. Heparin was instilled to the quantity specified on the hub, and the hub was secured to the skin with 3-0 nylon sutures. The skin incision at the neck was closed in two layers with 4-0 Monocryl suture and Dermabond dressings were placed. The skin at the exit site was snugged up around the catheter with 4-0 Monocryl suture and Dermabond was placed there as well. Once the Dermabond was dry, a Biopatch and Tegaderm dressing was placed at the exit site. The patient was taken to Recovery in good condition. Estimated blood loss was minimal. There were no complications. There were no specimens.
[2018-04-25] MEDS ORDERED: cloNIDine 0.1 MG TAB PO SCH (12:30)
--- NOTE | 2018-04-25 12:46 | PRG ---
DATE OF SERVICE: 04/25/2018 SUBJECTIVE: The patient is seen and examined at the bedside. His is present in the room during my visit. They do not speak Georgian. He does not have much complaints to offer. OBJECTIVE: VITAL SIGNS: Blood pressure is 183/80, pulse is 73, temperature 98.0, respirations 18, and O2 saturation is 96. HEENT: His head is atraumatic and normocephalic. Eyes are PERRLA. Sclerae are nonicteric. Oral mucosa is moist. NECK: Supple. LUNGS: Breath sounds are somewhat diminished at both bases. HEART: S1 and S2 normal. No S3. No S4. CHEST: He has catheter for dialysis in the right upper chest. ABDOMEN: Soft, nontender. Bowel sounds are present. No organomegaly. EXTREMITIES: No clubbing, cyanosis, or edema. NEUROLOGICAL: He is alert and oriented x4. There is no any motor deficits. LABORATORY DATA: Labs showed glycemia ranging from 78 to 124. IMPRESSION: 1. Worsening chronic renal failure, stage 5, getting ready for dialysis. 2. Anemia of chronic disease. 3. Diabetes mellitus. 4. Uncontrolled hypertension. We are going to start him on clonidine 0.1 mg twice a day along with other blood pressure medications he is already taking. 5. Hyperkalemia, resolved. 6. Hypertensive urgency, improved, but now it is problem again. DISCUSSION: He is going to be started on dialysis. He is going to be set up for outpatient dialysis and he was seen by Dr. Garcia for General Surgery evaluation for his fistula placement. Vein mapping was planned. For now, we are going to continue his current regimen and I encouraged him to get up and walk since he did not have bowel movements for couple of days. Job ID: [id number]
--- NOTE | 2018-04-25 13:26 | ULT ---
ULTRASOUND VESSEL MAPPING DIALYSIS ACCESSS: Date: 04/25/18 HISTORY: End-stage renal disease. COMPARISON: None. TECHNIQUE: Real-time Bang scale, color Doppler, and spectral analysis of the bilateral upper extremity venous ar terial system performed. FINDINGS: RIGHT UPPER EXTREMITY BRACHIAL ARTERY: 6.0 mm RADIAL ARTERY: 3.7 mm ULNAR ARTERY: 4.1 mm CEPHALIC VEIN Proximal Arm: Not seen Mid Arm: Not seen Distal Arm: 1.9 mm Antecubital Fossa: 2.5 mm Proximal Forearm: 1.9 mm Mid Forearm: 2.4 mm Distal Forearm: 1.7 mm BASILIC VEIN Proximal Arm: 4.9 mm Mid Arm: 4.4 mm Distal Arm: 2.4 mm Antecubital Fossa: 2.5 mm Proximal Forearm: 1.4 mm Mid Forearm: 1.1 mm Distal Forearm: 0.8 mm LEFT UPPER EXTREMITY BRACHIAL ARTERY: 6.0 mm RADIAL ARTERY: 2.6 mm ULNAR ARTERY: 2.5 mm CEPHALIC VEIN Proximal Arm: 2.3 mm Mid Arm: 2.6 mm Distal Arm: 2.2 mm Antecubital Fossa: 3.1 mm Proximal Forearm: 1.3 mm Mid Forearm: 1.0 mm Distal Forearm: 0.9 mm BASILIC VEIN Proximal Arm: 4.1 mm Mid Arm: 2.5 mm Distal Arm: 2.5 mm Antecubital Fossa: 1.8 mm Proximal Forearm: 0.6 mm Mid Forearm: 0.6 mm Distal Forearm: 0.6 mm IMPRESSION: Vascular sizes as above. POS: [facility]
[2018-04-25] MEDS: Atorvastatin Calcium 20 MG TAB PO SCH (20:08)
[2018-04-25] MEDS: cloNIDine 0.1 MG TAB PO SCH (20:09)
[2018-04-25] MEDS: Montelukast Sodium 10 mg Tablet PO SCH (20:10)
[2018-04-25] MEDS: Guaifenesin DM 100-10/5 ML UDCUP PO PRN (20:12)
[2018-04-26] MEDS: Sodium Bicarbonate Tab 325 MG TAB PO SCH (07:48)
[2018-04-26] MEDS: Labetalol 100 MG TAB PO SCH ×2 (07:48→20:36)
[2018-04-26] MEDS: Sevelamer Carbonate 800 MG TAB PO SCH ×3 (07:48→16:03)
[2018-04-26] MEDS: Calcitriol 0.25 MCG CAP PO SCH (07:48)
[2018-04-26] MEDS: Ferrous Sulfate 325 MG TAB PO SCH ×2 (07:49→16:03)
[2018-04-26] MEDS: Insulin Glargine 15 UNITS in Pre-Filled Syringe 1 EACH SC SCH ×2 (07:49→20:43)
[2018-04-26] MEDS: hydrALAZINE 25 MG TAB PO SCH ×3 (07:49→20:37)
[2018-04-26] MEDS: cloNIDine 0.1 MG TAB PO SCH ×2 (07:49→20:37)
[2018-04-26] MEDS: Senokot S 8.6-50 MG TAB PO PRN (08:02)
--- NOTE | 2018-04-26 09:57 | PRG ---
DATE OF SERVICE: 04/26/2018 SUBJECTIVE: Mr. Henderson is a 72-year-old male, who was admitted due to progressive azotemia. Due to the improved GFR/renal function in spite of volume repletion, it was decided to initiate hemodialysis with him. He has chronic renal failure from his diabetic nephropathy. He is tolerating said hemodialysis. However, his blood pressure has been labile. No complaints of chest pain or shortness of breath. OBJECTIVE: VITAL SIGNS: Blood pressure is 153/66, heart rate 65, respiratory rate 16, temperature 98, and pulse ox 97%. GENERAL: The patient is noted to be awake, alert, comfortable, not in distress. SKIN: Adequate turgor. HEENT: He has pinkish conjunctivae. Anicteric sclerae. No neck mass. No carotid bruits. No JVD. CHEST: No deformities. LUNGS: Clear breath sounds. HEART: Normal sinus rhythm. No murmur. No gallops. No rubs. ABDOMEN: Globular, soft, nontender. No masses. EXTREMITIES: No edema. No deformities. MEDICATIONS: Medications of April 26, 2018, reviewed. LABORATORY DATA: Laboratories of April 26, 2018, none done. On April 23, 2018, hemoglobin 9.4. Blood sugar of April 26, shows of value of 185. ASSESSMENT AND PLAN: 1. End-stage renal disease/chronic renal failure. Continue current hemodialysis regimen. Fluid removal only as tolerated. 2. Labile hypertension. We will add losartan 25 mg tablet once a day. We will also discontinue sodium bicarbonate. 3. Secondary hyperparathyroidism, on calcitriol. 4. Hyperphosphatemia, on Renvela. Overall agree with current management. Job ID: [id number]
[2018-04-26] MEDS ORDERED: Heparin 1,000 UNITS/ML VIAL ONE (11:11)
--- NOTE | 2018-04-26 14:06 | PRG ---
DATE OF SERVICE: 04/26/2018 SUBJECTIVE: The patient is seen and examined at the bedside. His is present in the room during my visit. He complains about some rash and some itching on his abdomen. He was dialyzed yesterday. OBJECTIVE: VITAL SIGNS: Blood pressure is 162/68, temperature is 97.9, respirations 16, and O2 saturation is 97% on room air. HEENT: His head is atraumatic and normocephalic. Eyes are PERRLA. Sclerae are nonicteric. Oral mucosa is moist. NECK: Supple. LUNGS: Breath sounds diminished at both bases. HEART: S1, S2 normal. No S3. No S4. CHEST: He has catheter for hemodialysis in the right upper chest. ABDOMEN: Soft, nontender. Bowel sounds are present. No organomegaly. EXTREMITIES: 1+ peripheral edema. IMPRESSION: 1. Worsening chronic renal failure, stage 5, getting ready for dialysis. Dr. Garcia did in the right internal jugular vein tunneled hemodialysis catheter with ultrasound and fluoroscopic guidance yesterday. 2. Anemia of chronic disease. 3. Diabetes mellitus. 4. Uncontrolled hypertension. He was started on clonidine 0.1 mg twice a day yesterday. His blood pressure is somewhat better. 5. Hyperkalemia, resolved. 6. Hyperphosphatemia and secondary hyperparathyroidism. PLAN: Plan is to continue his dialysis as per Dr. Tapia's recommendation. I will use steroid cream for his abdominal rash which is very localized and fine, this is unclear what the etiology it is. His glycemia is well controlled and we will continue his regimen. Job ID: [id number]
[2018-04-26] MEDS: Fluticasone Propionate Nasal Spray 16 gm Bottle NASAL PRN (20:35)
[2018-04-26] MEDS: Atorvastatin Calcium 20 MG TAB PO SCH (20:38)
[2018-04-26] MEDS: Montelukast Sodium 10 mg Tablet PO SCH (20:38)
[2018-04-27] MEDS: hydrALAZINE 25 MG TAB PO SCH ×3 (08:29→20:13)
[2018-04-27] MEDS: Losartan 25 MG TAB PO SCH (08:30)
[2018-04-27] MEDS: Ferrous Sulfate 325 MG TAB PO SCH ×2 (08:30→17:18)
[2018-04-27] MEDS: Labetalol 100 MG TAB PO SCH ×2 (08:30→20:15)
[2018-04-27] MEDS: cloNIDine 0.1 MG TAB PO SCH ×2 (08:30→20:11)
[2018-04-27] MEDS: Sevelamer Carbonate 800 MG TAB PO SCH ×3 (08:30→17:18)
[2018-04-27] MEDS: Calcitriol 0.25 MCG CAP PO SCH (08:30)
[2018-04-27] MEDS: Senokot S 8.6-50 MG TAB PO PRN (08:34)
[2018-04-27] MEDS: NIFEdipine XL 60 MG TAB PO SCH (09:26)
[2018-04-27] MEDS: Insulin Glargine 15 UNITS in Pre-Filled Syringe 1 EACH SC SCH ×2 (09:27→20:14)
--- NOTE | 2018-04-27 09:55 | PRG ---
DATE OF SERVICE: 04/27/2018 SUBJECTIVE: Mr. Henderson is a 72-year-old male, who was admitted for progressive azotemia. He was initiated on dialysis. He is doing well. We have now placement for outpatient dialysis. The plan is for him to undergo dialysis tomorrow and be discharged after the said dialysis. He voices no new complaints. He denies any chest pain or shortness of breath. OBJECTIVE: VITAL SIGNS: Blood pressure 185/80, heart rate is 66, and respiratory rate 12. GENERAL: Awake, alert, and comfortable, not in distress. SKIN: Adequate turgor. HEENT: He has a pinkish conjunctivae. Anicteric sclerae. NECK: No neck mass. No carotid bruits. No JVD. CHEST: No deformities. LUNGS: Clear breath sounds. HEART: Normal sinus rhythm. No murmurs. No gallops. No rubs. ABDOMEN: Globular, soft, and nontender. No masses. EXTREMITIES: No edema. No deformities. MEDICATIONS: Medications of April 27, 2018, reviewed. LABORATORY DATA: Laboratories of April 23, 2018, hemoglobin is 9.4. On April 27, 2018, glucose 87. ASSESSMENT AND PLAN: 1. End-stage renal disease/chronic renal failure, tolerating dialysis. My plan is to do a 4-hour dialysis in a.m. After the said dialysis, the patient can be discharged home. He has an outpatient dialysis placement already. 2. Hypertension. Continue BP medication. Losartan was added yesterday at 25 mg tablet once a day. 3. Hyperphosphatemia, on Renvela. 4. Secondary hyperparathyroidism. Continue calcitriol. 5. Agree with current management. Job ID: [id number]
[2018-04-27] MEDS: Proctozone-HC 2.5% Cream 30 GM TUBE TOP SCH (10:43)
--- NOTE | 2018-04-27 12:35 | PRG ---
DATE OF SERVICE: 04/27/2018 SUBJECTIVE: The patient is seen and examined at the bedside. He is feeling better. He does not have much complaints to offer. OBJECTIVE: VITAL SIGNS: Blood pressure is 176/77, O2 saturation is 93, pulse is 62, temperature is 98.1, respiratory rate is 18. HEENT: His head is atraumatic and normocephalic. Eyes are PERRLA. Sclerae are nonicteric. Oral mucosa is moist. NECK: Supple. CHEST: He has catheter in the upper chest on the right side. LUNGS: Clear. HEART: S1 and S2 normal. No S3. No S4. ABDOMEN: Soft, nontender. EXTREMITIES: No clubbing or cyanosis. There is 1+ peripheral edema similar bilaterally in the lower extremities. NEUROLOGICAL: He is alert and oriented x4. There is no any motor or sensory deficits. Cranial nerves are intact. LABORATORY DATA: Labs showed glycemia ranging from 87 to 155. IMPRESSION: 1. Acute on chronic renal failure, stage 5, started on dialysis. The patient is going to have a 4-hour dialysis tomorrow and the plan is to discharge him home. Outpatient dialysis is arranged. 2. Anemia of chronic disease. 3. Diabetes mellitus. 4. Uncontrolled hypertension. The patient was started on clonidine 0.1 mg twice a day and I am going to start him on nifedipine 60 mg once a day today since his blood pressure is still running 170s-180s systolic. 5. Hyperkalemia, resolved. 6. Hyperphosphatemia and secondary hyperparathyroidism. Job ID: [id number]
[2018-04-27] MEDS: Atorvastatin Calcium 20 MG TAB PO SCH (20:13)
[2018-04-27] MEDS: Montelukast Sodium 10 mg Tablet PO SCH (20:13)
[2018-04-28] MEDS: Calcitriol 0.25 MCG CAP PO SCH (08:01)
[2018-04-28] MEDS: Labetalol 100 MG TAB PO SCH (08:01)
[2018-04-28] MEDS: Sevelamer Carbonate 800 MG TAB PO SCH ×3 (08:02→16:01)
[2018-04-28] MEDS: Losartan 25 MG TAB PO SCH (08:02)
[2018-04-28] MEDS: Ferrous Sulfate 325 MG TAB PO SCH ×2 (08:02→16:01)
[2018-04-28] MEDS: hydrALAZINE 25 MG TAB PO SCH ×2 (08:02→16:01)
[2018-04-28] MEDS: cloNIDine 0.1 MG TAB PO SCH (08:02)
[2018-04-28] MEDS: NIFEdipine XL 60 MG TAB PO SCH (08:02)
[2018-04-28] MEDS: Insulin Glargine 15 UNITS in Pre-Filled Syringe 1 EACH SC SCH (08:03)
[2018-04-28] MEDS: Proctozone-HC 2.5% Cream 30 GM TUBE TOP SCH (08:03)
[2018-04-28] MEDS: Senokot S 8.6-50 MG TAB PO PRN (08:09)
[2018-04-28] MEDS ORDERED: Heparin 1,000 UNITS/ML VIAL ONE (11:11)
--- NOTE | 2018-04-28 11:47 | PRG ---
DATE OF SERVICE: 04/28/2018 SUBJECTIVE: Mr. Henderson is a 72-year-old male, who was admitted for progressive azotemia. He has been initiated on dialysis. He is doing well. He is currently undergoing dialysis today without any difficulty. I am at the bedside supervising him. No complaints of chest pain or shortness of breath. OBJECTIVE: VITAL SIGNS: Blood pressure 155/73, heart rate 64, respiratory rate 12, pulse ox 96% on room air. GENERAL: Awake, alert, comfortable, not in distress. SKIN: Adequate turgor. HEENT: Pinkish conjunctivae. Anicteric sclerae. NECK: No neck mass. No carotid bruits. No JVD. CHEST: No deformities. LUNGS: Clear breath sounds. HEART: Normal sinus rhythm. No murmurs. No gallops. No rubs. ABDOMEN: Globular, soft, nontender. No masses. EXTREMITIES: No edema. No deformities. MEDICATIONS: Medications of April 28, 2018, reviewed. LABORATORY DATA: Laboratories of April 27, 2018, glucose 151; April 24, 2018, BUN 39 and creatinine 4.54, potassium 3.6, hemoglobin 9.4. ASSESSMENT AND PLAN: 1. End-stage renal disease, stable, tolerating current hemodialysis regimen. Fluid removal only as tolerated today. 2. Hyperphosphatemia, currently on Renvela one tablet t.i.d. with meals. 3. Secondary hyperparathyroidism, continuing daily calcitriol. Agree with this plan of discharge. Job ID: [id number]
[2018-04-28 15:21] VITALS: BP 133/61; TEMP 98.2
--- NOTE | 2018-04-28 15:50 | PDOC.PN ---
- Subjective Encounter Start Date: 04/28/18 Encounter Start Time: 15:49 Subjective: Seen and examined feeling better - Objective Resuscitation Status - Order Detail: 04/17/18 19:38 Resuscitation Status Routine Resuscitation Status: FULL: Full Resuscitation Discussed with: Patient Vital Signs & Weight: Vital Signs (12 hours) Temp Pulse Resp BP BP BP Pulse Ox 04/28/18 15:20 98.2 F 71 20 133/61 95 04/28/18 08:02 64 155/73 H 04/28/18 08:01 64 155/73 H 04/28/18 08:00 96 04/28/18 07:41 97.9 F 64 20 155/73 H 96 04/28/18 04:00 98 F 66 18 129/65 92 L Weight Weight 171 lb 15.36 oz I&O: 04/27/18 04/28/18 04/29/18 06:59 06:59 07:59 Intake Total 350 1315 Output Total 600 975 Balance -250 340 Result Diagrams: 04/23/18 07:38 04/24/18 08:31 Additional Labs: Accuchecks 04/28/18 04/28/18 04/27/18 10:56 04:22 19:12 POC Glucose 123 H 84 151 H 04/27/18 16:02 POC Glucose 105 Phys Exam - Physical Examination Constitutional: NAD HEENT: PERRLA, moist MMs, sclera anicteric, TM's clear Neck: no nodes, no JVD, supple, full ROM Respiratory: no wheezing, no rales, no rhonchi, clear to auscultation bilateral Cardiovascular: RRR, no significant murmur, no rub Gastrointestinal: soft, non-tender, no distention, positive bowel sounds Musculoskeletal: pulses present Neurological: non-focal, normal sensation, moves all 4 limbs Dx/Plan (1) Acute renal failure superimposed on stage 5 chronic kidney disease, not on chronic dialysis Code(s): N17.9 - ACUTE KIDNEY FAILURE, UNSPECIFIED; N18.5 - CHRONIC KIDNEY DISEASE, STAGE 5 Status: Acute Comment: attempting treatment with hydration , will monitor over the weekend (2) Anemia of renal disease Code(s): N18.9 - CHRONIC KIDNEY DISEASE, UNSPECIFIED; D63.1 - ANEMIA IN CHRONIC KIDNEY DISEASE Status: Chronic (3) Diabetes mellitus, insulin dependent (IDDM), controlled Code(s): E11.9 - TYPE 2 DIABETES MELLITUS WITHOUT COMPLICATIONS; Z79.4 - CORRECTION (CURRENT) USE OF INSULIN Status: Chronic Comment: currently on half home insulin, BS ok, will increase back to 30unit BID if blood sugars are elevated (4) Hypertension Code(s): I10 - ESSENTIAL (PRIMARY) HYPERTENSION Status: Chronic Qualifiers: Hypertension type: essential hypertension Qualified Code(s): I10 - Essential (primary) hypertension Comment: improved control, will continue to titrate medications (5) Hyperkalemia Code(s): E87.5 - HYPERKALEMIA Status: Resolved (6) Hypertensive urgency Code(s): I16.0 - HYPERTENSIVE URGENCY Status: Resolved - Plan plan discussed w/ family, PT/OT, social sciences chair Dialysis per Renal -: D/c home once dialysis outpatient is arranged * .
== END 2018-04-28 18:56 | disposition home or self-care (01) | DRG 683 ==
LOC: ERS 13:02 → T4-B 20:08
PROVIDERS: ADMIT Emergency Medicine; ATTEND Emergency Medicine
PROC: 05HM33Z Insertion of Infusion Device into Right Internal Jugular Vein, Percutaneous Approach (ICD-10-PCS; principal; 2018-04-24)
PROC: B543ZZA Ultrasonography of Right Jugular Veins, Guidance (ICD-10-PCS; 2018-04-24)
PROC: 5A1D70Z Performance of Urinary Filtration, Intermittent, Less than 6 Hours Per Day (ICD-10-PCS; 2018-04-25)
PROC: 5A1D70Z Performance of Urinary Filtration, Intermittent, Less than 6 Hours Per Day (ICD-10-PCS; 2018-04-26)
PROC: 5A1D70Z Performance of Urinary Filtration, Intermittent, Less than 6 Hours Per Day (ICD-10-PCS; 2018-04-28)
DX: N17.9 Acute kidney failure, unspecified (principal); I12.0 Hypertensive chronic kidney disease with stage 5 chronic kidney disease or end stage renal disease; N18.6 End stage renal disease; N25.81 Secondary hyperparathyroidism of renal origin; E11.22 Type 2 diabetes mellitus with diabetic chronic kidney disease; D63.1 Anemia in chronic kidney disease; Z79.4 Long term (current) use of insulin; E87.5 Hyperkalemia; I16.0 Hypertensive urgency; Z99.2 Dependence on renal dialysis; E83.39 Other disorders of phosphorus metabolism; I50.9 Heart failure, unspecified; E11.21 Type 2 diabetes mellitus with diabetic nephropathy
CPT/HCPCS: 36415; 36416; 71045; 76000; 76770; 80048; 80053; 81003; 81015; 82550; 83970; 84100; 84484; 85025; 86580; 86704; 86706; 86803; 87340; 93005; 93970; 94760; C1752; C1769; G0365; J1644; J1825; J2001; J2405; J2704; J3010; Q0162

== ENCOUNTER 2018-06-19 10:46 | Day surgery (SDC) | payer MEDICARE ==
[2018-06-19] MEDS ORDERED: Fentanyl 100 MCG/2 ML VIAL ONE ×2 (11:39→13:39)
[2018-06-19] MEDS ORDERED: Midazolam HCl 2 mg/2 ml Vial ONE (11:39)
[2018-06-19 11:41] LABS: #Eosinphils 0.3 thou/uL (0.0-0.7); #Lymphocytes 1.3 thou/uL (1.20-3.40); #Monocytes 0.6 thou/uL (0.11-0.59); #Neutrophils 3.3 thou/uL (1.40-6.50); %Basophils 0.9 % (0.0-1.0); %Eosinophils 5.2 % (0.0-10.0); %Lymphocytes 23.6 % (21.0-51.0); %Monocytes 10.1 % (0.0-10.0); %Neutrophils 60.3 % (42.0-75.0); Hemoglobin 12.7 g/dL (14.0-18.0); Mean Corpuscular HGB CONC 30.5 g/dL (32.0-36.0); Mean Corpuscular Hemoglobin 27.9 pg (27.0-31.0); Mean Corpuscular Volume 91.8 fL (78.0-98.0); Mean Platelet Volume 6.9 fL (7.4-10.4); Platelet Count 215 thou/uL (130-400); RBC Distribution Width 14.1 % (11.5-14.5); Red Blood Cell (RBC) Count 4.53 mill/uL (4.70-6.10); White Blood Cell (WBC) Count 5.5 thou/uL (4.8-10.8)
[2018-06-19 12:06] LABS: Anion Gap 14 mmol/L (10-20); BUN (Urea Nitrogen) 24 mg/dL (8.4-25.7); Calc. Creatinine Clearance 0 mL/min (70-130); Calcium 9.8 mg/dL (7.8-10.44); Carbon Dioxide 34 mmol/L (23-31); Chloride 99 mmol/L (98-107); Estimated GFR-MDRD 14; Glucose 96 mg/dL (80-115); Potassium 4.8 mmol/L (3.5-5.1); Sodium 142 mmol/L (136-145)
[2018-06-19] MEDS ORDERED: Protamine Sulfate 50 MG/5 ML VIAL ONE (13:40)
[2018-06-19] MEDS ORDERED: Lidocaine 2% PF 5 ML VIAL ONE (13:40)
[2018-06-19] MEDS ORDERED: Bupivacaine/Epinephrine 0.25% 30 ML VIAL ONE (13:40)
[2018-06-19] MEDS ORDERED: Heparin 5,000 UNITS/ML VIAL ONE (13:40)
[2018-06-19] MEDS ORDERED: PROPOFOL 200 MG/20 ML VIAL ONE (14:52)
[2018-06-19] MEDS ORDERED: Heparin 10,000 UNITS/ 10 ML VIAL ONE ×2 (14:52→17:58)
[2018-06-19] MEDS ORDERED: Bupivacaine HCl 0.5%/Epinephrine 1:200,000/PF 30 ml Vial ONE (16:03)
--- NOTE | 2018-06-20 11:06 | PDOC.OP ---
Operative Note - Operative Note Operative Note: DATE OF PROCEDURE: 06/19/2018 PROCEDURE: Left upper arm radiocephalic AV fistula. SURGEON: Merna Garcia M.D. PREOPERATIVE DIAGNOSIS: End-stage renal failure. POSTOPERATIVE DIAGNOSIS: End-stage renal failure. HISTORY: Patient with end-stage renal failure who requires permanent access for ongoing hemodialysis. After reviewing vein mapping the decision was made to proceed with a primary fistula on the left. PROCEDURE: After informed consent was obtained and appropriate preoperative antibiotics administered, the patient was taken to the operating room and was placed in supine position and general anesthesia was administered. A preoperative block had been placed by anesthesia and adequacy confirmed. The patient's arm was prepped and draped in standard sterile fashion. The palpable cephalic vein and radial artery were marked on the skin. An incision was made between these 2 structures and dissection carried down to the cephalic vein. This was felt to be of adequate caliber and quality to support an AV fistula. The vein was interrogated with cardiac dilators and unfortunately had a tight stenosis in the distal third of the forearm making it inadequate for fistula formation. Attention was turned to the antecubital fossa. The palpable antecubital vein and brachial artery pulses were marked on the skin and adequacy of the block at this level was confirmed. An incision was made between the 2 structures and dissection carried out to the antecubital vein which was felt to be of adequate size and quality to support a graft. There was no significant perforating vein but the forearm cephalic and the upper arm was of good caliber and quality. This was dissected free distally to a length that would allow it to easily come down to the artery. The vein was ligated distally spatulated and serially interrogated with cardiac dilators. It easily accepted up to a 3.5 mm dilator. The vein was flushed with heparinized saline and clamped. The brachial artery was dissected free and traced down to the bifurcation. The proximal radial artery was identified and dissected free and was felt to be of adequate caliber and quality to support a fistula. Heparin was administered systemically and allowed to circulate for 3 minutes. After the heparin had circulated for 3 minutes, the radial artery was clamped proximally and distally. An anterior arteriotomy was created with an 11 blade and extended with Durbin scissors. The vein was spatulated and an end-to-side anastomosis was created with excellent technical result. Prior to tying down the anastomosis, the arterial inflow was released flushing the anastomosis. The anastomosis was then secured and hemostasis was verified. Flow was established first through the fistula following which flow was restored through the artery. The patient had a palpable thrill in the cephalic vein as well as a good Doppler signal to the level of the upper arm and a good signal at the radial artery at the wrist. The wound was irrigated and examined for hemostasis was again confirmed to be excellent. The subcutaneous tissues at both incisions were reapproximated with a running 3-0 Monocryl sutures and the skin was closed with running 4-0 subcuticular Monocryl suture. Dermabond dressings were placed. The patient was then taken to recovery in good condition. Estimated blood loss was minimal. There were no complications. There were no specimens.
== END 2018-06-19 19:05 | disposition home or self-care (01) ==
LOC: SDC 10:46
PROVIDERS: ATTEND Surgery
PROC: 03180ZD Bypass Left Brachial Artery to Upper Arm Vein, Open Approach (ICD-10-PCS; principal; 2018-06-19)
DX: I12.0 Hypertensive chronic kidney disease with stage 5 chronic kidney disease or end stage renal disease (principal); E11.22 Type 2 diabetes mellitus with diabetic chronic kidney disease; N18.6 End stage renal disease; E78.5 Hyperlipidemia, unspecified; K21.9 Gastro-esophageal reflux disease without esophagitis; Z87.891 Personal history of nicotine dependence; Z79.4 Long term (current) use of insulin; Z79.899 Other long term (current) drug therapy
CPT/HCPCS: 36415; 80048; 85025; 93005; 93010; J0690; J1644; J2001; J2250; J2720; J3010

== ENCOUNTER 2018-09-04 07:22 | Day surgery (SDC) | payer MEDICARE ==
--- NOTE | 2018-09-04 11:01 | SPC ---
Left upper extremity dialysis fistulogram Percutaneous balloon angioplasty left upper extremity cephalic fistula. Sonographic guided vascular access left upper extremity dialysis fistula HISTORY: Renal failure. Difficulty in access of left upper extremity dialysis fistula with infiltrati on. FINDINGS: After explaining the procedure and answering all questions, the left upper extremity was pr epped and draped in usual sterile fashion. Sonographic survey was performed. The left upper arm dialysis fistula is patent, with the arteriovenous anastomosis with the radial artery well visualized . Sterile technique, buffered local anesthesia, sonographic guidance, and a 22-gauge needle were used t o carefully access the cephalic fistula at the level of the antecubital fossa. A 4 [place] micropuncture sheath was carefully placed for imaging. Angiographic imaging shows an area of moderate irregularity and narrowing of the cephalic fistula at the level of the mid to distal humeral shaft. At the level of the mid humeral shaft, a short segment focus of moderate stenosis is present. Occasional collateral vessels are seen upper cephalic vein. Central vasculature and superior vena cav a are widely patent. Reflux angiography shows the arterial anastomosis to be widely patent. No large collateral vessels at the antecubital fossa. The cephalic vein does remains small. Micropuncture sheath was carefully exchanged for a 6 [place] sheath. 0.035 glide wire was used to care fully advance a 5 mm x 4 cm balloon to the level of cephalic vein irregularity and stenosis. Multiple dilatations were performed along the areas of abnormality, with full bone profile easily ach ieved. The focal stenosis showed minimal balloon defect with the original dilatation. Stenosis was relieved. Repeat angiography shows improved diameter of and flow within the cephalic fistula. Catheter and sheath were removed. Hemostasis obtained using direct pressure. Patient tolerated the pr ocedure well and was returned to the holding area in good condition for further monitoring. Fluoroscopy time 1.4 minutes. IMPRESSION: Successful balloon angioplasty of the short segment moderate stenosis of the cephalic jose eduardo ous fistula. The irregularity of the fistula at the level of the distal humeral shaft may be related to recent instrumentation and surrounding extravasation from dialysis. There is now good flow and function.
[2018-09-04 12:10] VITALS: BP 124/71; TEMP 97.7
[2018-09-04 12:15] VITALS: BMI 37.8
[2018-09-04] MEDS ORDERED: Iopamidol 300 61% 100 ML VIAL FS ONE (14:04)
[2018-09-04] MEDS ORDERED: Prevnar 13-Val Conj/PF 0.5 ML SYRINGE IM ONE (16:00)
== END 2018-09-04 10:15 | disposition home or self-care (01) ==
LOC: SPEC 07:22
PROVIDERS: ATTEND Surgery
PROC: B51W1ZZ Fluoroscopy of Dialysis Shunt/Fistula using Low Osmolar Contrast (ICD-10-PCS; principal; 2018-09-04)
DX: T82.858A Stenosis of other vascular prosthetic devices, implants and grafts, initial encounter (principal); I12.0 Hypertensive chronic kidney disease with stage 5 chronic kidney disease or end stage renal disease; N18.6 End stage renal disease; F32.9 Major depressive disorder, single episode, unspecified; K21.9 Gastro-esophageal reflux disease without esophagitis; Z87.891 Personal history of nicotine dependence; Z79.4 Long term (current) use of insulin; Z79.899 Other long term (current) drug therapy; Z98.890 Other specified postprocedural states; Z99.2 Dependence on renal dialysis
CPT/HCPCS: 36901; 36902; C1725; Q9967

== ENCOUNTER 2020-12-29 01:12 | Inpatient (IN) | payer MEDICARE ==
[2020-12-29] MEDS ORDERED: Ondansetron ODT 4 MG TAB PO PRN (07:55)
[2020-12-29] MEDS ORDERED: Dextrose 5% in Water 1,000 ML IV PRN (08:01)
[2020-12-29] MEDS ORDERED: HumaLOG 300 UNITS/3 ML VIAL SC PRN (08:01)
[2020-12-29] MEDS ORDERED: Dextrose 50% Abboject 50 ML SYRINGE SLOW IVP PRN (08:01)
[2020-12-29 08:32] LABS: #Lymphocytes 0.5 thou/uL (1.20-3.40); #Monocytes 0.9 thou/uL (0.11-0.59); %Basophils 0.1 % (0.0-1.0); %Eosinophils 0.3 % (0.0-10.0); %Lymphocytes 5.8 % (21.0-51.0); %Monocytes 9.3 % (0.0-10.0); %Neutrophils 84.5 % (42.0-75.0); Hemoglobin 10.3 g/dL (14.0-18.0); Mean Corpuscular HGB CONC 32.3 g/dL (32.0-36.0); Mean Corpuscular Hemoglobin 31.6 pg (27.0-31.0); Mean Corpuscular Volume 97.7 fL (78.0-98.0); Mean Platelet Volume 6.5 fL (7.4-10.4); Platelet Count 174 thou/uL (130-400); RBC Distribution Width 14.6 % (11.5-14.5); Red Blood Cell (RBC) Count 3.27 mill/uL (4.70-6.10); White Blood Cell (WBC) Count 9.4 thou/uL (4.8-10.8)
[2020-12-29 08:45] LABS: Anion Gap 15 mmol/L (10-20); BUN (Urea Nitrogen) 29 mg/dL (8.4-25.7); Calc. Creatinine Clearance 12 mL/min (70-130); Calcium 9.3 mg/dL (7.8-10.44); Carbon Dioxide 26 mmol/L (23-31); Chloride 103 mmol/L (98-107); Glucose 139 mg/dL (83-110); Potassium 4.9 mmol/L (3.5-5.1); Sodium 139 mmol/L (136-145)
[2020-12-29] MEDS ORDERED: Non-Formulary Item 1 EACH (Insulin Detemir [Levemir Flextouch] 100 UNIT/ML Insuln.Pen) SQ SCH (09:00)
[2020-12-29] MEDS ORDERED: Non-Formulary Item 1 EACH (Sevelamer Hcl [Sevelamer Hcl] 800 MG Tablet) PO SCH (09:00)
[2020-12-29] MEDS ORDERED: Non-Formulary Item 1 EACH (Insulin Aspart [Novolog Flexpen] 100 UNIT/ML Insuln.Pen) SQ SCH (09:00)
[2020-12-29] MEDS: HumaLOG 300 UNITS/3 ML VIAL SC SCH (09:34)
[2020-12-29] MEDS: Heparin 5,000 UNITS/ML VIAL SC SCH ×3 (09:34→20:33)
[2020-12-29] MEDS: hydrALAZINE 25 MG TAB PO SCH ×3 (09:34→20:30)
[2020-12-29] MEDS: Sevelamer Carbonate 800 MG TAB PO SCH ×3 (09:34→20:31)
[2020-12-29] MEDS: Famotidine 20 MG TAB PO SCH ×2 (09:35→20:31)
[2020-12-29] MEDS: Losartan 25 MG TAB PO SCH (09:35)
[2020-12-29] MEDS ORDERED: VANCOMYCIN 1.25 GM/250 ML BAG 1.25 GM in Premix Bag 1 BAG IVPB SCH ×2 (10:00→11:45)
[2020-12-29] MEDS: Lantus 1000 UNITS/10 ML VIAL SC SCH ×2 (11:27→20:34)
[2020-12-29] MEDS ORDERED: Vancomycin 1 GM in Premix Bag 1 BAG IVPB SCH (12:00)
[2020-12-29] MEDS ORDERED: hydrALAZINE 20 MG/ML VIAL SLOW IVP SCH (12:45)
[2020-12-29 17:36] LABS: Bacteria/HPF None Seen HPF (None Seen); Bilirubin Negative (Negative); Blood, Urine 1+ (Negative); Clarity Clear (Clear); Glucose, Urine (Dipstick) 300 mg/dL (Negative); Ketone, Urine Negative (Negative); Leukocyte Negative Leu/uL (Negative); Nitrite Negative (Negative); Protein, Urine (Dipstick) 300 mg/dL (Neg-Trace); Squamous Epithelial 0-3 HPF (0-3); Urobilinogen Normal mg/dL (Less than 2); pH, Urine 8.5 (5.0-9.0)
[2020-12-29 17:37] LABS: Urine Culture Reflex Yes Yes
[2020-12-29] MEDS: Acetaminophen 325 MG TAB PO PRN (20:31)
[2020-12-29] MEDS: Atorvastatin Calcium 20 MG TAB PO SCH (20:32)
[2020-12-29] MEDS: Gabapentin 300 MG CAP PO SCH (20:32)
[2020-12-29] MEDS: hydrOXYzine 25 MG TAB PO SCH (20:33)
[2020-12-29] MEDS ORDERED: Amlodipine 10 MG TAB PO SCH (21:15)
[2020-12-29] MEDS: Cefepime 1 GM in Sodium Chloride 0.9% 100 ML IVPB SCH (22:14)
[2020-12-30] MEDS ORDERED: Labetalol HCl 100 MG/20 ML VIAL SLOW IVP SCH (00:45)
[2020-12-30] MEDS ORDERED: VANCOMYCIN 1.25 GM/250 ML BAG 1.25 GM in Premix Bag 1 BAG IVPB SCH (01:00)
[2020-12-30 04:59] LABS: #Lymphocytes 0.7 thou/uL (1.20-3.40); #Monocytes 0.7 thou/uL (0.11-0.59); #Neutrophils 7.4 thou/uL (1.40-6.50); %Basophils 0.2 % (0.0-1.0); %Eosinophils 0.4 % (0.0-10.0); %Monocytes 7.6 % (0.0-10.0); %Neutrophils 83.8 % (42.0-75.0); Hemoglobin 9.6 g/dL (14.0-18.0); Mean Corpuscular HGB CONC 33.1 g/dL (32.0-36.0); Mean Corpuscular Hemoglobin 32.1 pg (27.0-31.0); Mean Corpuscular Volume 97.1 fL (78.0-98.0); Mean Platelet Volume 6.8 fL (7.4-10.4); Platelet Count 157 thou/uL (130-400); RBC Distribution Width 14.5 % (11.5-14.5); Red Blood Cell (RBC) Count 2.98 mill/uL (4.70-6.10); White Blood Cell (WBC) Count 8.8 thou/uL (4.8-10.8)
[2020-12-30 05:08] LABS: Anion Gap 20 mmol/L (10-20); BUN (Urea Nitrogen) 51 mg/dL (8.4-25.7); Calc. Creatinine Clearance 9 mL/min (70-130); Calcium 9.2 mg/dL (7.8-10.44); Carbon Dioxide 21 mmol/L (23-31); Chloride 102 mmol/L (98-107); Glucose 157 mg/dL (83-110); Potassium 4.7 mmol/L (3.5-5.1); Sodium 138 mmol/L (136-145); Vancomycin, Random 24.5 ug/mL (See Comment)
[2020-12-30 06:14] LABS: HBSAg Index 0.24 S/CO (0-0.99); Hep B Surf Ag Non-Reactive S/CO (NonReactive)
[2020-12-30] MEDS ORDERED: Vancomycin HCl 500 MG in Sodium Chloride 0.9% 100 ML IVPB SCH (06:30)
[2020-12-30] MEDS ORDERED: HOLD VANCOMYCIN FOR LEVEL >20 FS SCH (06:30)
[2020-12-30] MEDS ORDERED: Vancomycin Sliding Scale 1 EACH FS ONE (06:30)
[2020-12-30] MEDS ORDERED: Vancomycin HCl 1.25 GM in Sodium Chloride 0.9% 250 ML 250 ML IVPB SCH (06:30)
[2020-12-30] MEDS ORDERED: Vancomycin 1 GM in Premix Bag 1 BAG IVPB SCH (06:30)
[2020-12-30] MEDS ORDERED: Vancomycin HCl 750 MG in Sodium Chloride 0.9% 250 ML 250 ML IVPB SCH (06:30)
[2020-12-30] MEDS: Losartan 25 MG TAB PO SCH (07:59)
[2020-12-30] MEDS: Heparin 5,000 UNITS/ML VIAL SC SCH ×3 (07:59→20:38)
[2020-12-30] MEDS: hydrALAZINE 25 MG TAB PO SCH ×3 (07:59→20:38)
[2020-12-30] MEDS: Famotidine 20 MG TAB PO SCH ×2 (07:59→20:39)
[2020-12-30] MEDS: Sevelamer Carbonate 800 MG TAB PO SCH ×3 (07:59→20:37)
[2020-12-30] MEDS: Amlodipine 10 MG TAB PO SCH (07:59)
[2020-12-30] MEDS: Lantus 1000 UNITS/10 ML VIAL SC SCH (08:00)
[2020-12-30] MEDS: HumaLOG 300 UNITS/3 ML VIAL SC SCH (08:00)
[2020-12-30] MEDS: Atorvastatin Calcium 20 MG TAB PO SCH (20:37)
[2020-12-30] MEDS: Gabapentin 300 MG CAP PO SCH (20:37)
[2020-12-30] MEDS: hydrOXYzine 25 MG TAB PO SCH (20:39)
[2020-12-30] MEDS: Cefepime 1 GM in Sodium Chloride 0.9% 100 ML IVPB SCH (23:28)
[2020-12-31] MEDS ORDERED: hydrALAZINE 20 MG/ML VIAL SLOW IVP SCH (07:15)
[2020-12-31 07:44] LABS: #Eosinphils 0.1 thou/uL (0.0-0.7); #Lymphocytes 0.8 thou/uL (1.20-3.40); #Monocytes 0.9 thou/uL (0.11-0.59); #Neutrophils 5.7 thou/uL (1.40-6.50); %Basophils 0.1 % (0.0-1.0); %Eosinophils 1.8 % (0.0-10.0); %Lymphocytes 10.4 % (21.0-51.0); %Monocytes 11.8 % (0.0-10.0); %Neutrophils 75.9 % (42.0-75.0); Hemoglobin 10.4 g/dL (14.0-18.0); Mean Corpuscular Hemoglobin 31.8 pg (27.0-31.0); Mean Corpuscular Volume 96.4 fL (78.0-98.0); Mean Platelet Volume 7.3 fL (7.4-10.4); Platelet Count 166 thou/uL (130-400); RBC Distribution Width 14.4 % (11.5-14.5); Red Blood Cell (RBC) Count 3.26 mill/uL (4.70-6.10); White Blood Cell (WBC) Count 7.6 thou/uL (4.8-10.8)
[2020-12-31 08:00] LABS: Anion Gap 21 mmol/L (10-20); BUN (Urea Nitrogen) 34 mg/dL (8.4-25.7); Calc. Creatinine Clearance 12 mL/min (70-130); Calcium 9.9 mg/dL (7.8-10.44); Carbon Dioxide 23 mmol/L (23-31); Chloride 99 mmol/L (98-107); Glucose 126 mg/dL (83-110); Potassium 4.4 mmol/L (3.5-5.1); Sodium 139 mmol/L (136-145)
[2020-12-31] MEDS: Losartan 25 MG TAB PO SCH (08:23)
[2020-12-31] MEDS: Famotidine 20 MG TAB PO SCH ×2 (08:24→20:52)
[2020-12-31] MEDS: Sevelamer Carbonate 800 MG TAB PO SCH ×3 (08:24→20:52)
[2020-12-31] MEDS: Amlodipine 10 MG TAB PO SCH (08:24)
[2020-12-31] MEDS: Heparin 5,000 UNITS/ML VIAL SC SCH ×3 (08:25→20:52)
[2020-12-31] MEDS: hydrALAZINE 25 MG TAB PO SCH (08:25)
[2020-12-31] MEDS: Labetalol 100 MG TAB PO SCH ×2 (09:45→20:51)
[2020-12-31] MEDS: NIFEdipine XL 60 MG TAB PO SCH (09:45)
[2020-12-31] MEDS: HumaLOG 300 UNITS/3 ML VIAL SC PRN (11:56)
[2020-12-31] MEDS ORDERED: hydrALAZINE 20 MG/ML VIAL SLOW IVP PRN (15:37)
[2020-12-31] MEDS: Acetaminophen 325 MG TAB PO PRN ×2 (16:14→23:05)
[2020-12-31] MEDS: hydrOXYzine 25 MG TAB PO SCH (20:52)
[2020-12-31] MEDS: Gabapentin 300 MG CAP PO SCH (20:52)
[2020-12-31] MEDS: Atorvastatin Calcium 20 MG TAB PO SCH (20:52)
[2020-12-31] MEDS: Cefepime 1 GM in Sodium Chloride 0.9% 100 ML IVPB SCH (23:06)
[2021-01-01 07:51] LABS: #Lymphocytes 0.6 thou/uL (1.20-3.40); #Monocytes 0.8 thou/uL (0.11-0.59); #Neutrophils 6.4 thou/uL (1.40-6.50); %Basophils 0.2 % (0.0-1.0); %Eosinophils 0.5 % (0.0-10.0); %Lymphocytes 7.7 % (21.0-51.0); %Monocytes 10.1 % (0.0-10.0); %Neutrophils 81.5 % (42.0-75.0); Hemoglobin 9.1 g/dL (14.0-18.0); Mean Corpuscular HGB CONC 31.7 g/dL (32.0-36.0); Mean Corpuscular Hemoglobin 30.6 pg (27.0-31.0); Mean Corpuscular Volume 96.5 fL (78.0-98.0); Mean Platelet Volume 7.6 fL (7.4-10.4); Platelet Count 166 thou/uL (130-400); RBC Distribution Width 14.6 % (11.5-14.5); Red Blood Cell (RBC) Count 2.98 mill/uL (4.70-6.10); White Blood Cell (WBC) Count 7.9 thou/uL (4.8-10.8)
[2021-01-01 08:07] LABS: Anion Gap 22 mmol/L (10-20); BUN (Urea Nitrogen) 52 mg/dL (8.4-25.7); Calc. Creatinine Clearance 9 mL/min (70-130); Carbon Dioxide 23 mmol/L (23-31); Chloride 98 mmol/L (98-107); Glucose 156 mg/dL (83-110); Potassium 4.9 mmol/L (3.5-5.1); Sodium 138 mmol/L (136-145)
[2021-01-01] MEDS: NIFEdipine XL 60 MG TAB PO SCH (09:00)
[2021-01-01] MEDS: Famotidine 20 MG TAB PO SCH ×2 (09:00→20:51)
[2021-01-01] MEDS: Heparin 5,000 UNITS/ML VIAL SC SCH ×3 (09:00→20:50)
[2021-01-01] MEDS: Losartan 25 MG TAB PO SCH (09:00)
[2021-01-01] MEDS: Labetalol 100 MG TAB PO SCH ×2 (09:00→20:50)
[2021-01-01] MEDS ORDERED: Epoetin (ESRD) 20,000 UNITS/ML SC SCH (09:00)
[2021-01-01] MEDS: Sevelamer Carbonate 800 MG TAB PO SCH ×3 (09:00→20:51)
[2021-01-01] MEDS ORDERED: Iopamidol 370 76% 100 ML VIAL ONE (10:18)
[2021-01-01 10:19] LABS: Vancomycin, Random 15.7 ug/mL (See Comment)
[2021-01-01] MEDS ORDERED: Vancomycin HCl 500 MG in Sodium Chloride 0.9% 100 ML IVPB SCH (10:45)
[2021-01-01] MEDS: Acetaminophen 325 MG TAB PO PRN ×2 (16:02→20:51)
[2021-01-01 16:15] LABS: CSF, Glucose 81 mg/dl (40-70); CSF, Protein 81 mg/dL (15-40)
[2021-01-01 16:28] LABS: CSF Source CSF
[2021-01-01 16:29] LABS: Clarity Clear (Clear)
[2021-01-01 16:30] LABS: Tube # EDTA
[2021-01-01] MEDS: EPOETIN ALFA-EPBX (ESRD) 3,000 UNIT/ML VIAL SC SCH (16:52)
[2021-01-01] MEDS: EPOETIN ALFA-EPBX (ESRD) 2,000 UNIT/ML VIAL SC SCH (16:53)
[2021-01-01] MEDS: HumaLOG 300 UNITS/3 ML VIAL SC PRN (16:54)
[2021-01-01] MEDS: Atorvastatin Calcium 20 MG TAB PO SCH (20:51)
[2021-01-02 04:00] LABS: #Lymphocytes 0.8 thou/uL (1.20-3.40); #Neutrophils 8.4 thou/uL (1.40-6.50); %Basophils 0.4 % (0.0-1.0); %Eosinophils 0.5 % (0.0-10.0); %Lymphocytes 7.8 % (21.0-51.0); %Monocytes 9.3 % (0.0-10.0); %Neutrophils 82.1 % (42.0-75.0); Hemoglobin 9.7 g/dL (14.0-18.0); Mean Corpuscular HGB CONC 32.7 g/dL (32.0-36.0); Mean Corpuscular Hemoglobin 31.6 pg (27.0-31.0); Mean Corpuscular Volume 96.6 fL (78.0-98.0); Mean Platelet Volume 7.5 fL (7.4-10.4); Platelet Count 164 thou/uL (130-400); RBC Distribution Width 14.4 % (11.5-14.5); Red Blood Cell (RBC) Count 3.06 mill/uL (4.70-6.10); White Blood Cell (WBC) Count 10.2 thou/uL (4.8-10.8)
[2021-01-02 04:20] LABS: Anion Gap 18 mmol/L (10-20); BUN (Urea Nitrogen) 32 mg/dL (8.4-25.7); Calc. Creatinine Clearance 10 mL/min (70-130); Calcium 10.4 mg/dL (7.8-10.44); Carbon Dioxide 29 mmol/L (23-31); Chloride 95 mmol/L (98-107); Glucose 141 mg/dL (83-110); Potassium 4.5 mmol/L (3.5-5.1); Sodium 137 mmol/L (136-145)
[2021-01-02] MEDS: Sevelamer Carbonate 800 MG TAB PO SCH ×3 (08:10→20:52)
[2021-01-02] MEDS: Losartan 25 MG TAB PO SCH (08:10)
[2021-01-02] MEDS: Heparin 5,000 UNITS/ML VIAL SC SCH ×3 (08:11→20:50)
[2021-01-02] MEDS: NIFEdipine XL 60 MG TAB PO SCH (08:11)
[2021-01-02] MEDS: Labetalol 100 MG TAB PO SCH ×2 (08:11→20:51)
[2021-01-02] MEDS: Acetaminophen 325 MG TAB PO PRN (08:22)
[2021-01-02] MEDS ORDERED: Iopamidol-370 76% 500 ML 1 ML ONE (10:37)
[2021-01-02] MEDS: Meropenem 500 MG in Sodium Chloride 0.9% 100 ML IVPB SCH (11:18)
[2021-01-02 17:35] LABS: Legionella Urinary Ag POSITIVE (Negative); Strep pneumo Urine Ag NEGATIVE (NEGATIVE)
[2021-01-02] MEDS: Famotidine 20 MG TAB PO SCH (20:51)
[2021-01-02] MEDS: Atorvastatin Calcium 20 MG TAB PO SCH (20:51)
[2021-01-03 07:18] LABS: Albumin 3.4 g/dL (3.4-4.8); Anion Gap 19 mmol/L (10-20); BUN (Urea Nitrogen) 65 mg/dL (8.4-25.7); BUN/Creatinine Ratio 7.27; Calc. Creatinine Clearance 8 mL/min (70-130); Calcium 9.6 mg/dL (7.8-10.44); Carbon Dioxide 25 mmol/L (23-31); Chloride 94 mmol/L (98-107); Glucose 125 mg/dL (83-110); Phosphorus 7.4 mg/dL (2.3-4.7); Potassium 4.3 mmol/L (3.5-5.1); Sodium 134 mmol/L (136-145)
[2021-01-03] MEDS: Losartan 25 MG TAB PO SCH (08:52)
[2021-01-03] MEDS: NIFEdipine XL 60 MG TAB PO SCH (08:53)
[2021-01-03] MEDS: Labetalol 100 MG TAB PO SCH ×2 (08:53→20:25)
[2021-01-03] MEDS: Sevelamer Carbonate 800 MG TAB PO SCH ×3 (08:53→20:23)
[2021-01-03] MEDS: Heparin 5,000 UNITS/ML VIAL SC SCH ×3 (08:54→20:26)
[2021-01-03] MEDS: HumaLOG 300 UNITS/3 ML VIAL SC PRN (12:00)
[2021-01-03] MEDS: Meropenem 500 MG in Sodium Chloride 0.9% 100 ML IVPB SCH (12:11)
[2021-01-03] MEDS: Famotidine 20 MG TAB PO SCH (20:23)
[2021-01-03] MEDS: Atorvastatin Calcium 20 MG TAB PO SCH (20:23)
[2021-01-04 06:31] LABS: Albumin 3.6 g/dL (3.4-4.8); Anion Gap 24 mmol/L (10-20); BUN (Urea Nitrogen) 85 mg/dL (8.4-25.7); Calc. Creatinine Clearance 7 mL/min (70-130); Calcium 9.7 mg/dL (7.8-10.44); Carbon Dioxide 22 mmol/L (23-31); Chloride 92 mmol/L (98-107); Glucose 129 mg/dL (83-110); Phosphorus 8.7 mg/dL (2.3-4.7); Potassium 5.4 mmol/L (3.5-5.1); Sodium 133 mmol/L (136-145)
[2021-01-04 08:31] LABS: Vancomycin, Random 13.1 ug/mL (See Comment)
[2021-01-04] MEDS: Heparin 5,000 UNITS/ML VIAL SC SCH ×3 (12:44→21:07)
[2021-01-04] MEDS: Sevelamer Carbonate 800 MG TAB PO SCH ×3 (12:46→21:08)
[2021-01-04] MEDS: Losartan 25 MG TAB PO SCH (12:54)
[2021-01-04] MEDS: Labetalol 100 MG TAB PO SCH ×2 (12:54→21:07)
[2021-01-04] MEDS: NIFEdipine XL 60 MG TAB PO SCH (12:54)
[2021-01-04] MEDS: EPOETIN ALFA-EPBX (ESRD) 2,000 UNIT/ML VIAL SC SCH ×2 (13:19→13:35)
[2021-01-04] MEDS: EPOETIN ALFA-EPBX (ESRD) 3,000 UNIT/ML VIAL SC SCH ×2 (13:19→13:36)
[2021-01-04 15:37] LABS: VDRL, CSF Non Reactive (Non Rea:<1:1)
[2021-01-04] MEDS ORDERED: Haloperidol Lactate 5 MG/ML VIAL ONE (17:20)
[2021-01-04] MEDS ORDERED: Haloperidol Lactate 5 MG/ML VIAL SLOW IVP SCH (17:30)
[2021-01-04] MEDS: Atorvastatin Calcium 20 MG TAB PO SCH (21:07)
[2021-01-04] MEDS: Famotidine 20 MG TAB PO SCH (21:07)
[2021-01-05] MEDS: Labetalol 100 MG TAB PO SCH ×2 (09:03→22:04)
[2021-01-05] MEDS: Losartan 25 MG TAB PO SCH (09:03)
[2021-01-05] MEDS: Heparin 5,000 UNITS/ML VIAL SC SCH ×3 (09:04→22:04)
[2021-01-05] MEDS: Sevelamer Carbonate 800 MG TAB PO SCH ×3 (09:04→22:03)
[2021-01-05] MEDS: NIFEdipine XL 60 MG TAB PO SCH ×2 (09:04→22:04)
[2021-01-05] MEDS: HumaLOG 300 UNITS/3 ML VIAL SC PRN (12:21)
[2021-01-05 14:37] LABS: West Nile Virus IgG Ab - CSF Negative (Negative); West Nile Virus IgM Ab - CSF Negative (Negative)
[2021-01-05] MEDS: Tamsulosin HCl 0.4 MG CAP PO SCH (22:03)
[2021-01-05] MEDS: Atorvastatin Calcium 20 MG TAB PO SCH (22:04)
[2021-01-05] MEDS: Famotidine 20 MG TAB PO SCH (22:04)
[2021-01-06 08:34] LABS: Hemoglobin 8.8 g/dL (14.0-18.0); Mean Corpuscular HGB CONC 34.2 g/dL (32.0-36.0); Mean Corpuscular Hemoglobin 32.2 pg (27.0-31.0); Mean Corpuscular Volume 94.1 fL (78.0-98.0); Mean Platelet Volume 6.6 fL (7.4-10.4); Platelet Count 240 thou/uL (130-400); RBC Distribution Width 14.6 % (11.5-14.5); Red Blood Cell (RBC) Count 2.74 mill/uL (4.70-6.10); White Blood Cell (WBC) Count 5.5 thou/uL (4.8-10.8)
[2021-01-06 08:54] LABS: Albumin 3.5 g/dL (3.4-4.8); Anion Gap 21 mmol/L (10-20); BUN (Urea Nitrogen) 65 mg/dL (8.4-25.7); BUN/Creatinine Ratio 7.13; Calc. Creatinine Clearance 8 mL/min (70-130); Calcium 9.7 mg/dL (7.8-10.44); Carbon Dioxide 25 mmol/L (23-31); Chloride 97 mmol/L (98-107); Glucose 187 mg/dL (83-110); Phosphorus 8.7 mg/dL (2.3-4.7); Potassium 4.6 mmol/L (3.5-5.1); Sodium 138 mmol/L (136-145)
[2021-01-06] MEDS: EPOETIN ALFA-EPBX (ESRD) 2,000 UNIT/ML VIAL SC SCH ×2 (12:34→15:39)
[2021-01-06] MEDS: Heparin 5,000 UNITS/ML VIAL SC SCH ×3 (12:35→20:29)
[2021-01-06] MEDS: EPOETIN ALFA-EPBX (ESRD) 3,000 UNIT/ML VIAL SC SCH ×2 (12:35→15:40)
[2021-01-06] MEDS: Labetalol 100 MG TAB PO SCH ×2 (12:36→20:26)
[2021-01-06] MEDS: Losartan 25 MG TAB PO SCH (12:36)
[2021-01-06] MEDS: NIFEdipine XL 60 MG TAB PO SCH ×2 (12:37→20:26)
[2021-01-06] MEDS: Sevelamer Carbonate 800 MG TAB PO SCH ×3 (12:37→20:26)
[2021-01-06] MEDS: Famotidine 20 MG TAB PO SCH (20:25)
[2021-01-06] MEDS: Atorvastatin Calcium 20 MG TAB PO SCH (20:25)
[2021-01-06] MEDS: Tamsulosin HCl 0.4 MG CAP PO SCH (20:26)
[2021-01-07 05:49] LABS: Mean Corpuscular Hemoglobin 31.1 pg (27.0-31.0); Mean Corpuscular Volume 94.2 fL (78.0-98.0); Mean Platelet Volume 6.6 fL (7.4-10.4); Platelet Count 285 thou/uL (130-400); RBC Distribution Width 14.6 % (11.5-14.5); Red Blood Cell (RBC) Count 3.21 mill/uL (4.70-6.10); White Blood Cell (WBC) Count 7.8 thou/uL (4.8-10.8)
[2021-01-07 06:17] LABS: Iron 78 ug/dL (65-175); Iron Binding Capacity, Total 228 mcg/dL (261-462)
[2021-01-07 06:18] LABS: Albumin 4.1 g/dL (3.4-4.8); Anion Gap 20 mmol/L (10-20); BUN (Urea Nitrogen) 41 mg/dL (8.4-25.7); BUN/Creatinine Ratio 6.06; Calc. Creatinine Clearance 12 mL/min (70-130); Calcium 10.4 mg/dL (7.8-10.44); Carbon Dioxide 28 mmol/L (23-31); Chloride 97 mmol/L (98-107); Glucose 138 mg/dL (83-110); Phosphorus 7.2 mg/dL (2.3-4.7); Potassium 4.7 mmol/L (3.5-5.1); Sodium 140 mmol/L (136-145)
[2021-01-07] MEDS: Losartan 25 MG TAB PO SCH (08:58)
[2021-01-07] MEDS: Labetalol 100 MG TAB PO SCH ×2 (08:59→20:32)
[2021-01-07] MEDS: Sevelamer Carbonate 800 MG TAB PO SCH ×3 (08:59→20:33)
[2021-01-07] MEDS: NIFEdipine XL 60 MG TAB PO SCH ×2 (09:00→20:33)
[2021-01-07] MEDS: Heparin 5,000 UNITS/ML VIAL SC SCH ×3 (09:01→20:33)
[2021-01-07 14:20] LABS: Ref Lab Test Ordered KARIUS; Reference Lab Name KARIUS
[2021-01-07] MEDS: Tamsulosin HCl 0.4 MG CAP PO SCH (20:32)
[2021-01-07] MEDS: Atorvastatin Calcium 20 MG TAB PO SCH (20:33)
[2021-01-07] MEDS: Famotidine 20 MG TAB PO SCH (20:33)
[2021-01-08 04:40] LABS: Albumin 3.6 g/dL (3.4-4.8); Anion Gap 21 mmol/L (10-20); BUN (Urea Nitrogen) 59 mg/dL (8.4-25.7); BUN/Creatinine Ratio 6.79; Calc. Creatinine Clearance 8 mL/min (70-130); Carbon Dioxide 26 mmol/L (23-31); Chloride 95 mmol/L (98-107); Glucose 111 mg/dL (83-110); Phosphorus 8.2 mg/dL (2.3-4.7); Potassium 5.2 mmol/L (3.5-5.1); Sodium 137 mmol/L (136-145)
[2021-01-08] MEDS: Heparin 5,000 UNITS/ML VIAL SC SCH ×3 (08:54→20:36)
[2021-01-08] MEDS: Sevelamer Carbonate 800 MG TAB PO SCH ×3 (08:54→20:35)
[2021-01-08] MEDS: Labetalol 100 MG TAB PO SCH ×2 (13:23→20:36)
[2021-01-08] MEDS: Losartan 25 MG TAB PO SCH (13:24)
[2021-01-08] MEDS: NIFEdipine XL 60 MG TAB PO SCH ×2 (13:24→22:07)
[2021-01-08] MEDS: EPOETIN ALFA-EPBX (ESRD) 3,000 UNIT/ML VIAL SC SCH (14:23)
[2021-01-08] MEDS: EPOETIN ALFA-EPBX (ESRD) 2,000 UNIT/ML VIAL SC SCH (14:23)
[2021-01-08] MEDS: Tamsulosin HCl 0.4 MG CAP PO SCH (20:36)
[2021-01-08] MEDS: Atorvastatin Calcium 20 MG TAB PO SCH (20:36)
[2021-01-08] MEDS: Famotidine 20 MG TAB PO SCH (20:36)
[2021-01-09 03:54] VITALS: BMI 25.9
[2021-01-09] MEDS: Heparin 5,000 UNITS/ML VIAL SC SCH ×3 (09:37→20:29)
[2021-01-09] MEDS: Labetalol 100 MG TAB PO SCH ×2 (09:37→20:29)
[2021-01-09] MEDS: Losartan 25 MG TAB PO SCH (09:37)
[2021-01-09] MEDS: Sevelamer Carbonate 800 MG TAB PO SCH ×3 (09:38→20:28)
[2021-01-09] MEDS: NIFEdipine XL 60 MG TAB PO SCH ×2 (09:41→20:28)
[2021-01-09 11:28] LABS: Anion Gap 19 mmol/L (10-20); BUN (Urea Nitrogen) 56 mg/dL (8.4-25.7); Calc. Creatinine Clearance 9 mL/min (70-130); Calcium 10.5 mg/dL (7.8-10.44); Carbon Dioxide 27 mmol/L (23-31); Chloride 96 mmol/L (98-107); Glucose 126 mg/dL (83-110); Potassium 5.3 mmol/L (3.5-5.1); Sodium 137 mmol/L (136-145)
[2021-01-09 15:58] LABS: Potassium 4.7 mmol/L (3.5-5.1)
[2021-01-09] MEDS ORDERED: Loratadine 10 MG TAB PO PRN (16:31)
[2021-01-09] MEDS: Tamsulosin HCl 0.4 MG CAP PO SCH (20:28)
[2021-01-09] MEDS: Atorvastatin Calcium 20 MG TAB PO SCH (20:29)
[2021-01-09] MEDS: Famotidine 20 MG TAB PO SCH (20:29)
[2021-01-10 07:25] LABS: Hemoglobin 9.7 g/dL (14.0-18.0); Mean Corpuscular HGB CONC 32.9 g/dL (32.0-36.0); Mean Corpuscular Hemoglobin 31.3 pg (27.0-31.0); Mean Corpuscular Volume 95.3 fL (78.0-98.0); Mean Platelet Volume 6.7 fL (7.4-10.4); Platelet Count 298 thou/uL (130-400); RBC Distribution Width 14.7 % (11.5-14.5); White Blood Cell (WBC) Count 6.4 thou/uL (4.8-10.8)
[2021-01-10 07:35] LABS: Albumin 3.8 g/dL (3.4-4.8); Anion Gap 23 mmol/L (10-20); BUN (Urea Nitrogen) 64 mg/dL (8.4-25.7); BUN/Creatinine Ratio 6.37; Calc. Creatinine Clearance 6 mL/min (70-130); Calcium 9.8 mg/dL (7.8-10.44); Carbon Dioxide 25 mmol/L (23-31); Chloride 96 mmol/L (98-107); Glucose 206 mg/dL (83-110); Potassium 4.7 mmol/L (3.5-5.1); Sodium 139 mmol/L (136-145)
[2021-01-10 08:07] LABS: Phosphorus 9.6 mg/dL (2.3-4.7)
[2021-01-10] MEDS: NIFEdipine XL 60 MG TAB PO SCH ×2 (09:42→21:53)
[2021-01-10] MEDS: Losartan 25 MG TAB PO SCH (09:43)
[2021-01-10] MEDS: Labetalol 100 MG TAB PO SCH ×2 (09:43→21:53)
[2021-01-10] MEDS: Heparin 5,000 UNITS/ML VIAL SC SCH ×4 (09:43→21:53)
[2021-01-10] MEDS: Sevelamer Carbonate 800 MG TAB PO SCH ×2 (12:19→16:44)
[2021-01-10] MEDS: HumaLOG 300 UNITS/3 ML VIAL SC PRN (17:29)
[2021-01-10] MEDS: Atorvastatin Calcium 20 MG TAB PO SCH (21:51)
[2021-01-10] MEDS: Famotidine 20 MG TAB PO SCH (21:52)
[2021-01-10] MEDS: Tamsulosin HCl 0.4 MG CAP PO SCH (21:54)
[2021-01-11 06:28] LABS: Hemoglobin 9.2 g/dL (14.0-18.0); Mean Corpuscular HGB CONC 33.8 g/dL (32.0-36.0); Mean Corpuscular Hemoglobin 31.9 pg (27.0-31.0); Mean Corpuscular Volume 94.4 fL (78.0-98.0); Mean Platelet Volume 6.3 fL (7.4-10.4); Platelet Count 253 thou/uL (130-400); RBC Distribution Width 14.7 % (11.5-14.5); Red Blood Cell (RBC) Count 2.88 mill/uL (4.70-6.10); White Blood Cell (WBC) Count 6.2 thou/uL (4.8-10.8)
[2021-01-11 07:03] LABS: Anion Gap 25 mmol/L (10-20); BUN (Urea Nitrogen) 87 mg/dL (8.4-25.7); Calc. Creatinine Clearance 6 mL/min (70-130); Carbon Dioxide 25 mmol/L (23-31); Chloride 95 mmol/L (98-107); Potassium 4.9 mmol/L (3.5-5.1); Sodium 140 mmol/L (136-145)
[2021-01-11 07:04] LABS: ALT (SGPT) 29 U/L (8-55); AST (SGOT) 25 U/L (5-34); Albumin 3.6 g/dL (3.4-4.8); Alkaline Phosphatase 101 U/L (40-110); Bilirubin, Total 0.7 mg/dL (0.2-1.2); Calcium 9.8 mg/dL (7.8-10.44); Globulin 3.7 g/dL (2.4-3.5); Glucose 116 mg/dL (83-110); Phosphorus 12.1 mg/dL (2.3-4.7); Protein, Total 7.3 g/dL (5.8-8.1)
[2021-01-11] MEDS: Sevelamer Carbonate 800 MG TAB PO SCH ×3 (07:51→16:21)
[2021-01-11] MEDS: Heparin 5,000 UNITS/ML VIAL SC SCH ×2 (07:55→16:22)
[2021-01-11] MEDS: Losartan 25 MG TAB PO SCH (13:27)
[2021-01-11] MEDS: NIFEdipine XL 60 MG TAB PO SCH (13:27)
[2021-01-11] MEDS: Labetalol 100 MG TAB PO SCH (13:27)
[2021-01-11] MEDS: EPOETIN ALFA-EPBX (ESRD) 2,000 UNIT/ML VIAL SC SCH (13:28)
[2021-01-11] MEDS: EPOETIN ALFA-EPBX (ESRD) 3,000 UNIT/ML VIAL SC SCH (13:28)
[2021-01-11] MEDS ORDERED: hydrALAZINE 25 MG TAB PO SCH (15:45)
[2021-01-11 16:18] VITALS: BP 156/69; TEMP 97.9
[2021-01-11 17:45] LABS: Phosphorus 5.4 mg/dL (2.3-4.7)
[2021-01-12] MEDS ORDERED: hydrALAZINE 25 MG TAB PO SCH (09:00)
== END 2021-01-11 18:30 | disposition home or self-care (01) | DRG 871 ==
LOC: T4-A 01:12 → OBSVTOIN 01:12 → IMCU/EMU 01-01 15:29 → SURG A 01-02 18:44
PROVIDERS: ADMIT Student in an Organized Health Care Education/Training Program; ATTEND Internal Medicine
PROC: 5A1D70Z Performance of Urinary Filtration, Intermittent, Less than 6 Hours Per Day (ICD-10-PCS; principal; 2020-12-28)
PROC: 009U3ZX Drainage of Spinal Canal, Percutaneous Approach, Diagnostic (ICD-10-PCS; 2021-01-01)
PROC: B01BZZZ Fluoroscopy of Spinal Cord (ICD-10-PCS; 2021-01-01)
DX: A41.89 Other specified sepsis (principal); A48.1 Legionnaires' disease; I33.0 Acute and subacute infective endocarditis; N18.6 End stage renal disease; G93.41 Metabolic encephalopathy; I12.0 Hypertensive chronic kidney disease with stage 5 chronic kidney disease or end stage renal disease; N17.9 Acute kidney failure, unspecified; E87.2 Acidosis; Z20.822 Contact with and (suspected) exposure to COVID-19; E11.22 Type 2 diabetes mellitus with diabetic chronic kidney disease; E11.42 Type 2 diabetes mellitus with diabetic polyneuropathy; E78.5 Hyperlipidemia, unspecified; E83.39 Other disorders of phosphorus metabolism; D63.1 Anemia in chronic kidney disease; M25.569 Pain in unspecified knee; G89.29 Other chronic pain; R01.1 Cardiac murmur, unspecified; E87.5 Hyperkalemia; Z79.899 Other long term (current) drug therapy; Z79.4 Long term (current) use of insulin; Z99.2 Dependence on renal dialysis
CPT/HCPCS: 36415; 36416; 62270; 70470; 71260; 74177; 80048; 80053; 80069; 80202; 82728; 82945; 83540; 83550; 84100; 84157; 85025; 85027; 85652; 86140; 86592; 86612; 86635; 86698; 86788; 86789; 87040; 87070; 87081; 87086; 87205; 87340; 87449; 87899; 89051; 90935; 93306; G0257; J0360; J0692; J1630; J1644; J1815; J1956; J2185; J3490; Q5105; Q9967

== ENCOUNTER 2021-02-21 10:48 | Inpatient (IN) | payer MEDICARE ==
[2021-02-21] MEDS ORDERED: cefTRIAXone\\ROCEPHIN 1 GM VIAL ONE (12:26)
[2021-02-21] MEDS ORDERED: Vancomycin 1 GM/200 ML BAG ONE (12:26)
[2021-02-21] MEDS ORDERED: hydrALAZINE 20 MG/ML VIAL ONE (13:26)
[2021-02-21] MEDS: hydrALAZINE 20 MG/ML VIAL SLOW IVP PRN ×2 (13:32→20:24)
[2021-02-21 13:57] LABS: #Eosinphils 0.1 thou/uL (0.0-0.7); #Lymphocytes 0.6 thou/uL (1.20-3.40); #Monocytes 0.3 thou/uL (0.11-0.59); #Neutrophils 4.4 thou/uL (1.40-6.50); %Basophils 0.1 % (0.0-1.0); %Eosinophils 1.6 % (0.0-10.0); %Lymphocytes 10.5 % (21.0-51.0); %Monocytes 6.1 % (0.0-10.0); %Neutrophils 81.7 % (42.0-75.0); Hemoglobin 9.9 g/dL (14.0-18.0); Mean Corpuscular HGB CONC 32.8 g/dL (32.0-36.0); Mean Corpuscular Volume 97.4 fL (78.0-98.0); Mean Platelet Volume 6.8 fL (7.4-10.4); Platelet Count 177 thou/uL (130-400); RBC Distribution Width 14.4 % (11.5-14.5); White Blood Cell (WBC) Count 5.4 thou/uL (4.8-10.8)
[2021-02-21 14:13] LABS: ALT (SGPT) 13 U/L (8-55); AST (SGOT) 13 U/L (5-34); Albumin 3.4 g/dL (3.4-4.8); Alkaline Phosphatase 88 U/L (40-110); Anion Gap 17 mmol/L (10-20); BUN (Urea Nitrogen) 29 mg/dL (8.4-25.7); Bilirubin, Total 0.6 mg/dL (0.2-1.2); Calc. Creatinine Clearance 0 mL/min (70-130); Carbon Dioxide 21 mmol/L (23-31); Chloride 105 mmol/L (98-107); Globulin 3.3 g/dL (2.4-3.5); Glucose 165 mg/dL (83-110); Potassium 4.5 mmol/L (3.5-5.1); Protein, Total 6.7 g/dL (5.8-8.1); Sodium 138 mmol/L (136-145)
[2021-02-21 14:17] LABS: Troponin I 0.094 ng/mL (< 0.028)
[2021-02-21] MEDS: hydrALAZINE 25 MG TAB PO SCH ×2 (16:24→21:12)
[2021-02-21 16:54] LABS: Troponin I 0.105 ng/mL (< 0.028)
[2021-02-21 17:08] LABS: HBSAg Index 0.24 S/CO (0-0.99); Hep B Surf Ag Non-Reactive S/CO (NonReactive)
[2021-02-21] MEDS: NIFEdipine XL 60 MG TAB PO SCH (21:12)
[2021-02-21] MEDS: Gabapentin 300 MG CAP PO SCH (21:12)
[2021-02-21] MEDS: Atorvastatin Calcium 20 MG TAB PO SCH (21:13)
[2021-02-21] MEDS ORDERED: Labetalol HCl 100 MG/20 ML VIAL SLOW IVP SCH (22:15)
[2021-02-22 08:08] LABS: Albumin 3.4 g/dL (3.4-4.8); Anion Gap 15 mmol/L (10-20); BUN (Urea Nitrogen) 17 mg/dL (8.4-25.7); BUN/Creatinine Ratio 3.17; Calc. Creatinine Clearance 14 mL/min (70-130); Calcium 9.7 mg/dL (7.8-10.44); Carbon Dioxide 30 mmol/L (23-31); Chloride 99 mmol/L (98-107); Glucose 108 mg/dL (83-110); Phosphorus 4.8 mg/dL (2.3-4.7); Potassium 3.7 mmol/L (3.5-5.1); Sodium 140 mmol/L (136-145)
[2021-02-22] MEDS: NIFEdipine XL 60 MG TAB PO SCH ×2 (08:53→23:31)
[2021-02-22] MEDS: hydrALAZINE 25 MG TAB PO SCH ×3 (08:54→23:30)
[2021-02-22] MEDS: Losartan 25 MG TAB PO SCH (08:54)
[2021-02-22] MEDS ORDERED: FLU VACC QS2021-22(65YR UP)/PF 240 MCG/0.7 ML SYRINGE IM ONE (09:00)
[2021-02-22] MEDS: Sevelamer Carbonate 800 MG TAB PO SCH ×2 (14:08→23:31)
[2021-02-22] MEDS ORDERED: Non-Formulary Item 1 EACH (Sevelamer Hcl [Sevelamer Hcl] 800 MG Tablet) PO SCH (15:00)
[2021-02-22] MEDS ORDERED: Non-Formulary Item 1 EACH (Insulin Detemir [Levemir Flextouch] 100 UNIT/ML Insuln.Pen) SQ SCH (21:00)
[2021-02-22] MEDS ORDERED: hydrOXYzine 25 MG TAB PO SCH (21:00)
[2021-02-22] MEDS: Labetalol 100 MG TAB PO SCH (23:31)
[2021-02-22] MEDS: Gabapentin 300 MG CAP PO SCH (23:31)
[2021-02-22] MEDS: Atorvastatin Calcium 20 MG TAB PO SCH (23:31)
[2021-02-22] MEDS: Lantus 1000 UNITS/10 ML VIAL SC SCH (23:32)
[2021-02-23 06:10] VITALS: BMI 28.5
[2021-02-23] MEDS: hydrALAZINE 25 MG TAB PO SCH (09:18)
[2021-02-23] MEDS: NIFEdipine XL 60 MG TAB PO SCH (09:19)
[2021-02-23] MEDS: Labetalol 100 MG TAB PO SCH (09:19)
[2021-02-23] MEDS: Lantus 1000 UNITS/10 ML VIAL SC SCH (09:19)
[2021-02-23] MEDS: Sevelamer Carbonate 800 MG TAB PO SCH (09:19)
[2021-02-23] MEDS: Losartan 25 MG TAB PO SCH (09:19)
[2021-02-23] MEDS ORDERED: Labetalol 100 MG TAB PO SCH ×3 (09:54→21:00)
[2021-02-23] MEDS ORDERED: Torsemide 100 MG TAB PO SCH (10:00)
[2021-02-23 10:44] VITALS: BP 161/75; TEMP 98
[2021-02-24] MEDS ORDERED: Torsemide 100 MG TAB PO SCH (09:00)
== END 2021-02-23 12:03 | disposition home or self-care (01) | DRG 280 ==
LOC: ERS 10:48 → ERHOLD 12:29 → 2NO 17:50
PROVIDERS: ADMIT Internal Medicine; ATTEND Internal Medicine
PROC: 5A1D70Z Performance of Urinary Filtration, Intermittent, Less than 6 Hours Per Day (ICD-10-PCS; principal; 2021-02-21)
PROC: 5A09357 Assistance with Respiratory Ventilation, Less than 24 Consecutive Hours, Continuous Positive Airway Pressure (ICD-10-PCS; 2021-02-21)
DX: I13.2 Hypertensive heart and chronic kidney disease with heart failure and with stage 5 chronic kidney disease, or end stage renal disease (principal); I50.33 Acute on chronic diastolic (congestive) heart failure; I21.9 Acute myocardial infarction, unspecified; N18.6 End stage renal disease; J96.01 Acute respiratory failure with hypoxia; A48.1 Legionnaires' disease; I33.0 Acute and subacute infective endocarditis; I16.1 Hypertensive emergency; E11.22 Type 2 diabetes mellitus with diabetic chronic kidney disease; D63.1 Anemia in chronic kidney disease; E78.5 Hyperlipidemia, unspecified; F17.210 Nicotine dependence, cigarettes, uncomplicated; I08.1 Rheumatic disorders of both mitral and tricuspid valves; I08.3 Combined rheumatic disorders of mitral, aortic and tricuspid valves; Z99.2 Dependence on renal dialysis; Z79.899 Other long term (current) drug therapy; Z79.4 Long term (current) use of insulin
CPT/HCPCS: 36415; 36416; 80069; 84100; 87040; 87086; 87340; 90935; 93306; G0257; J0360; J0696; J1956; J3370

== ENCOUNTER 2021-10-13 00:23 | Inpatient (IN) | payer MEDICARE ==
[2021-10-13] MEDS ORDERED: Acetaminophen 325 MG TAB PO PRN (02:53)
[2021-10-13] MEDS ORDERED: Calcium Carbonate 500 MG ChewTAB PO PRN (02:53)
[2021-10-13] MEDS ORDERED: Bisacodyl 5 MG TAB PO PRN (02:53)
[2021-10-13] MEDS ORDERED: Ondansetron ODT 4 MG TAB PO PRN (02:53)
[2021-10-13] MEDS ORDERED: Dextrose 50% Abboject 50 ML SYRINGE SLOW IVP PRN (02:53)
[2021-10-13] MEDS ORDERED: HYDROcodone/Acetaminophen 5/325 mg Tablet PO PRN (02:53)
[2021-10-13] MEDS ORDERED: Senokot S 8.6-50 MG TAB PO PRN (02:53)
[2021-10-13] MEDS ORDERED: Ondansetron PF 4 MG/2 ML Vial IVP PRN (02:53)
[2021-10-13] MEDS ORDERED: HumaLOG 300 UNITS/3 ML VIAL SC PRN ×2 (02:53)
[2021-10-13] MEDS ORDERED: Dextrose 5% in Water 1,000 ML IV PRN (02:53)
[2021-10-13 04:33] LABS: #Lymphocytes 0.4 thou/uL (1.20-3.40); #Monocytes 0.4 thou/uL (0.11-0.59); #Neutrophils 4.9 thou/uL (1.40-6.50); %Basophils 0.3 % (0.0-1.0); %Eosinophils 0.8 % (0.0-10.0); %Lymphocytes 7.5 % (21.0-51.0); %Monocytes 7.2 % (0.0-10.0); %Neutrophils 84.2 % (42.0-75.0); Hemoglobin 8.6 g/dL (14.0-18.0); Mean Corpuscular HGB CONC 32.3 g/dL (32.0-36.0); Mean Corpuscular Hemoglobin 31.4 pg (27.0-31.0); Mean Corpuscular Volume 97.3 fL (78.0-98.0); Mean Platelet Volume 7.7 fL (7.4-10.4); Platelet Count 150 thou/uL (130-400); RBC Distribution Width 14.3 % (11.5-14.5); Red Blood Cell (RBC) Count 2.73 mill/uL (4.70-6.10); White Blood Cell (WBC) Count 5.8 thou/uL (4.8-10.8)
[2021-10-13] MEDS ORDERED: Furosemide 40 MG/4 ML VIAL SLOW IVP SCH (04:45)
[2021-10-13 04:52] LABS: ALT (SGPT) Less than 7 U/L (8-55); AST (SGOT) 7 U/L (5-34); Albumin 3.3 g/dL (3.4-4.8); Alkaline Phosphatase 66 U/L (40-110); Anion Gap 16 mmol/L (10-20); BUN (Urea Nitrogen) 39 mg/dL (8.4-25.7); Bilirubin, Total 0.8 mg/dL (0.2-1.2); Calc. Creatinine Clearance 10 mL/min (70-130); Calcium 9.4 mg/dL (7.8-10.44); Carbon Dioxide 20 mmol/L (23-31); Chloride 106 mmol/L (98-107); Estimated GFR 8; Glucose 135 mg/dL (83-110); Iron 11 ug/dL (65-175); Iron Binding Capacity, Total 166 mcg/dL (261-462); Potassium 4.5 mmol/L (3.5-5.1); Protein, Total 6.3 g/dL (5.8-8.1); Sodium 137 mmol/L (136-145)
[2021-10-13 04:53] LABS: Iron 13 ug/dL (65-175); Iron Binding Capacity, Total 170 mcg/dL (261-462)
[2021-10-13 05:18] LABS: Ferritin 329.15 ng/mL (22-322)
[2021-10-13 08:41] LABS: Troponin I 0.397 ng/mL (< 0.028)
[2021-10-13] MEDS ORDERED: Famotidine 20 MG TAB PO SCH (09:00)
[2021-10-13 09:43] LABS: HBSAB Concentration 34.66 mIU/mL; HBSAg Index 0.26 S/CO (0-0.99); Hep B Core Total Ab Non-Reactive (NonReactive); Hep B Core Total Index 0.08 S/CO (0-0.79); Hep B Surf AB Reactive (NonReactive); Hep B Surf Ag Non-Reactive S/CO (NonReactive); Hep C IgG Ab Non-Reactive (NonReactive); Hep C Index 0.06 S/CO (0-0.79)
[2021-10-13] MEDS: Heparin 5,000 UNITS/ML VIAL SC SCH ×3 (09:47→20:31)
[2021-10-13] MEDS: Famotidine/PF 20 mg/2ml Vial SLOW IVP SCH (09:47)
[2021-10-13] MEDS: Famotidine 20 MG TAB PO SCH ×2 (09:47→14:09)
[2021-10-13] MEDS ORDERED: Iron, Sodium Ferric Gluconate 250 MG in Sodium Chloride 0.9% 250 ML 250 ML IVPB SCH (10:00)
[2021-10-13] MEDS ORDERED: Epoetin (ESRD) 10,000 UNITS/ML VIAL SC SCH (10:00)
[2021-10-13 12:29] LABS: SARS-CoV-2 PCR NAA for Saliva Not Detected (NotDetected)
[2021-10-13] MEDS ORDERED: hydrALAZINE 25 MG TAB PO SCH (16:45)
[2021-10-13 17:09] LABS: Troponin I 0.631 ng/mL (< 0.028)
[2021-10-13] MEDS: hydrALAZINE 25 MG TAB PO SCH (20:32)
[2021-10-13] MEDS: Sevelamer Carbonate 800 MG TAB PO SCH (20:33)
[2021-10-13] MEDS ORDERED: Non-Formulary Item 1 EACH (Carvedilol [Carvedilol] 12.5 MG Tablet) PO SCH (21:00)
[2021-10-13] MEDS: Labetalol HCl 100 MG/20 ML VIAL SLOW IVP PRN (23:34)
[2021-10-13 23:40] LABS: Critical Call Chem Troponin I D7; Troponin I 0.616 ng/mL (< 0.028)
[2021-10-14] MEDS ORDERED: NIFEdipine XL 60 MG TAB PO SCH (01:15)
[2021-10-14] MEDS ORDERED: hydrALAZINE 25 MG TAB PO SCH (01:15)
[2021-10-14] MEDS: Labetalol HCl 100 MG/20 ML VIAL SLOW IVP PRN ×2 (02:58→03:04)
[2021-10-14] MEDS: Escitalopram Oxalate 10 mg Tablet PO SCH (09:09)
[2021-10-14] MEDS: Famotidine 20 MG TAB PO SCH (09:10)
[2021-10-14] MEDS: Famotidine/PF 20 mg/2ml Vial SLOW IVP SCH (09:10)
[2021-10-14] MEDS: Sevelamer Carbonate 800 MG TAB PO SCH ×3 (09:10→21:18)
[2021-10-14] MEDS: hydrALAZINE 25 MG TAB PO SCH ×3 (09:10→21:18)
[2021-10-14] MEDS: Heparin 5,000 UNITS/ML VIAL SC SCH ×2 (09:11→16:02)
[2021-10-14] MEDS ORDERED: Torsemide 100 MG TAB PO SCH (09:30)
[2021-10-14 10:22] LABS: #Eosinphils 0.1 thou/uL (0.0-0.7); #Lymphocytes 0.5 thou/uL (1.20-3.40); #Monocytes 0.5 thou/uL (0.11-0.59); #Neutrophils 3.7 thou/uL (1.40-6.50); %Eosinophils 1.2 % (0.0-10.0); %Lymphocytes 10.1 % (21.0-51.0); %Monocytes 11.1 % (0.0-10.0); %Neutrophils 77.5 % (42.0-75.0); Hemoglobin 9.4 g/dL (14.0-18.0); Mean Corpuscular HGB CONC 31.3 g/dL (32.0-36.0); Mean Corpuscular Volume 98.9 fL (78.0-98.0); Mean Platelet Volume 7.4 fL (7.4-10.4); Platelet Count 169 thou/uL (130-400); RBC Distribution Width 14.3 % (11.5-14.5); Red Blood Cell (RBC) Count 3.04 mill/uL (4.70-6.10); White Blood Cell (WBC) Count 4.7 thou/uL (4.8-10.8)
[2021-10-14 10:39] LABS: Anion Gap 13 mmol/L (10-20); BUN (Urea Nitrogen) 23 mg/dL (8.4-25.7); Calc. Creatinine Clearance 12 mL/min (70-130); Carbon Dioxide 27 mmol/L (23-31); Chloride 100 mmol/L (98-107); Estimated GFR 11; Glucose 141 mg/dL (83-110); Magnesium 1.9 mg/dL (1.6-2.6); Sodium 136 mmol/L (136-145)
[2021-10-14 14:39] VITALS: BMI 26.9
[2021-10-14] MEDS ORDERED: Aspirin 81 mg Enteric Coated Tablet PO SCH (16:00)
[2021-10-14] MEDS: Apixaban 5 MG TAB PO SCH (21:18)
[2021-10-14] MEDS: NIFEdipine XL 60 MG TAB PO SCH (21:19)
[2021-10-15] MEDS: Sevelamer Carbonate 800 MG TAB PO SCH ×3 (01:48→16:01)
[2021-10-15 05:12] LABS: #Eosinphils 0.1 thou/uL (0.0-0.7); #Lymphocytes 0.5 thou/uL (1.20-3.40); #Monocytes 0.6 thou/uL (0.11-0.59); #Neutrophils 4.4 thou/uL (1.40-6.50); %Basophils 0.2 % (0.0-1.0); %Eosinophils 2.1 % (0.0-10.0); %Lymphocytes 9.5 % (21.0-51.0); %Neutrophils 78.2 % (42.0-75.0); Hemoglobin 9.7 g/dL (14.0-18.0); Mean Corpuscular HGB CONC 32.3 g/dL (32.0-36.0); Mean Corpuscular Hemoglobin 31.7 pg (27.0-31.0); Mean Platelet Volume 7.6 fL (7.4-10.4); Platelet Count 206 thou/uL (130-400); RBC Distribution Width 14.2 % (11.5-14.5); Red Blood Cell (RBC) Count 3.05 mill/uL (4.70-6.10); White Blood Cell (WBC) Count 5.6 thou/uL (4.8-10.8)
[2021-10-15 05:36] LABS: Anion Gap 13 mmol/L (10-20); BUN (Urea Nitrogen) 33 mg/dL (8.4-25.7); Calc. Creatinine Clearance 10 mL/min (70-130); Calcium 9.4 mg/dL (7.8-10.44); Carbon Dioxide 28 mmol/L (23-31); Chloride 99 mmol/L (98-107); Estimated GFR 8; Glucose 120 mg/dL (83-110); Potassium 3.7 mmol/L (3.5-5.1); Sodium 136 mmol/L (136-145)
[2021-10-15] MEDS: Famotidine 20 MG TAB PO SCH (08:31)
[2021-10-15] MEDS: Famotidine/PF 20 mg/2ml Vial SLOW IVP SCH (08:31)
[2021-10-15] MEDS: hydrALAZINE 25 MG TAB PO SCH ×2 (08:32→16:01)
[2021-10-15] MEDS: Apixaban 5 MG TAB PO SCH (08:33)
[2021-10-15] MEDS: Escitalopram Oxalate 10 mg Tablet PO SCH (08:33)
[2021-10-15] MEDS: NIFEdipine XL 60 MG TAB PO SCH (08:34)
[2021-10-15] MEDS ORDERED: Torsemide 100 MG TAB PO SCH (09:00)
[2021-10-15] MEDS ORDERED: Aspirin 81 mg Enteric Coated Tablet PO SCH (09:00)
[2021-10-15 16:09] VITALS: BP 159/74; TEMP 98.9
== END 2021-10-15 16:50 | disposition home or self-care (01) | DRG 280 ==
LOC: 2SW 00:23
PROVIDERS: ADMIT Internal Medicine; ATTEND Internal Medicine
PROC: 5A1D70Z Performance of Urinary Filtration, Intermittent, Less than 6 Hours Per Day (ICD-10-PCS; principal; 2021-10-13)
DX: I48.0 Paroxysmal atrial fibrillation (principal); I50.33 Acute on chronic diastolic (congestive) heart failure; I21.4 Non-ST elevation (NSTEMI) myocardial infarction; J18.9 Pneumonia, unspecified organism; N18.6 End stage renal disease; I16.1 Hypertensive emergency; J98.11 Atelectasis; I13.2 Hypertensive heart and chronic kidney disease with heart failure and with stage 5 chronic kidney disease, or end stage renal disease; E87.2 Acidosis; I47.2 Ventricular tachycardia; I35.0 Nonrheumatic aortic (valve) stenosis; E11.22 Type 2 diabetes mellitus with diabetic chronic kidney disease; D50.9 Iron deficiency anemia, unspecified; E78.5 Hyperlipidemia, unspecified; D63.1 Anemia in chronic kidney disease; Z20.822 Contact with and (suspected) exposure to COVID-19; Z79.899 Other long term (current) drug therapy; Z79.01 Long term (current) use of anticoagulants; Z99.2 Dependence on renal dialysis; Z79.4 Long term (current) use of insulin; Z90.49 Acquired absence of other specified parts of digestive tract
CPT/HCPCS: 36415; 36416; 80048; 80053; 82607; 82728; 83540; 83550; 83735; 84146; 84443; 85025; 86704; 87340; 93306; J1644; J1940; J1956; J2916; J7050; Q4081; S0028; U0003; U0005

== ENCOUNTER 2022-01-05 13:09 | Inpatient (IN) | payer MEDICARE ==
[2022-01-05] MEDS ORDERED: Nitroglycerin 50 MG/250 ML BOT 250 ML ONE (13:55)
[2022-01-05 14:35] LABS: SARS-CoV-2 NAA Rapid Test Not Detected (NotDetected)
[2022-01-05 14:50] LABS: Actual Bicarbonate (HCO3a) 21.7 mEq/L (22-28); Analyzer IN Cardio ER; Base Excess (BEa) -3.4 mEq/L (-2.0 to +3.0); CO2 Tension 39.1 mmHg (35.0-45.0); Calcium, Ionized (arterial) 1.19 mmol/L (1.12-1.30); Carboxyhemoglobin (COHb) 0.7 gm% (0.0-3.0); Hemoglobin (Hb) 11.1 g/dL (14.0-18.0); Potassium - ABG Lab 4.76 mmol/L (3.70-5.30); pH, Arterial 7.36 (7.35-7.45)
[2022-01-05 15:06] LABS: Puncture Site RRA
[2022-01-05 15:07] LABS: ALV-art Gradient 184.975 mmHg (0-20)
[2022-01-05 15:56] LABS: #Lymphocytes 0.4 thou/uL (1.20-3.40); #Monocytes 0.4 thou/uL (0.11-0.59); #Neutrophils 6.9 thou/uL (1.40-6.50); %Basophils 0.1 % (0.0-1.0); %Eosinophils 0.4 % (0.0-10.0); %Lymphocytes 4.8 % (21.0-51.0); %Monocytes 5.4 % (0.0-10.0); %Neutrophils 89.3 % (42.0-75.0); Mean Corpuscular HGB CONC 31.2 g/dL (32.0-36.0); Mean Corpuscular Hemoglobin 30.4 pg (27.0-31.0); Mean Corpuscular Volume 97.7 fl (78.0-98.0); Platelet Count 214 10x3/uL (130-400); RBC Distribution Width 18.3 % (11.5-14.5); Red Blood Cell (RBC) Count 3.29 mill/uL (4.70-6.10); White Blood Cell (WBC) Count 7.7 10x3/uL (4.8-10.8)
[2022-01-05 16:01] LABS: HBSAg Index 0.56 S/CO (0-0.99); Hep B Core Total Ab Non-Reactive (NonReactive); Hep B Core Total Index 0.28 S/CO (0-0.79); Hep B Surf Ag Non-Reactive S/CO (NonReactive); Hep C IgG Ab Non-Reactive (NonReactive)
[2022-01-05 16:10] LABS: HBSAB Concentration 21.65 mIU/mL; Hep B Surf AB Reactive (NonReactive)
[2022-01-05] MEDS ORDERED: Acetaminophen 325 MG TAB PO PRN (16:12)
[2022-01-05 16:15] LABS: Anion Gap 18 mmol/L (10-20); BUN (Urea Nitrogen) 44 mg/dL (8.4-25.7); Calc. Creatinine Clearance 0 mL/min (70-130); Calcium 9.6 mg/dL (7.8-10.44); Carbon Dioxide 20 mmol/L (23-31); Chloride 108 mmol/L (98-107); Estimated GFR 8; Glucose 110 mg/dL (83-110); Potassium 4.8 mmol/L (3.5-5.1); Sodium 141 mmol/L (136-145)
[2022-01-05 16:17] LABS: Troponin I 0.139 ng/mL (< 0.028)
[2022-01-05] MEDS ORDERED: Ondansetron PF 4 MG/2 ML Vial ONE (16:32)
[2022-01-05] MEDS ORDERED: Heparin 10,000 UNITS/ 10 ML VIAL ONE ×2 (17:51→18:53)
[2022-01-05] MEDS ORDERED: Lidocaine 1% (PF) 30 ML VIAL ONE (17:51)
[2022-01-05] MEDS ORDERED: Aspirin Chewable 81 MG TAB ONE (17:56)
[2022-01-05] MEDS ORDERED: Aspirin Chewable 81 MG TAB PO SCH (18:00)
[2022-01-05] MEDS ORDERED: Nitroglycerin 50 MG/250 ML BOT 250 ML IVPB SCH (18:00)
[2022-01-05] MEDS ORDERED: Morphine 2 MG/ML VIAL SLOW IVP PRN (18:07)
[2022-01-05] MEDS ORDERED: Nitroglycerin 0.4 MG TAB (25 Tab Bottle) SL PRN (18:07)
[2022-01-05] MEDS ORDERED: Heparin 10,000 UNITS/ 10 ML VIAL SLOW IVP SCH (18:15)
[2022-01-05 19:02] LABS: Troponin I 0.124 ng/mL (< 0.028)
[2022-01-05] MEDS ORDERED: Apixaban 5 MG TAB PO SCH (21:00)
[2022-01-06 00:41] VITALS: BMI 27.6
[2022-01-06] MEDS: Carvedilol 6.25 MG TAB PO SCH ×4 (01:37→21:30)
[2022-01-06] MEDS: NIFEdipine XL 60 MG TAB PO SCH ×4 (01:37→21:31)
[2022-01-06] MEDS ORDERED: Heparin 25,000 units/D5W 500 ML IV SCH (02:30)
[2022-01-06 02:44] LABS: #Lymphocytes 0.6 thou/uL (1.20-3.40); #Monocytes 0.5 thou/uL (0.11-0.59); #Neutrophils 4.8 thou/uL (1.40-6.50); %Basophils 0.2 % (0.0-1.0); %Eosinophils 0.5 % (0.0-10.0); %Lymphocytes 10.1 % (21.0-51.0); %Monocytes 9.1 % (0.0-10.0); %Neutrophils 80.1 % (42.0-75.0); Mean Corpuscular HGB CONC 31.1 g/dL (32.0-36.0); Mean Corpuscular Hemoglobin 30.4 pg (27.0-31.0); Mean Corpuscular Volume 97.6 fl (78.0-98.0); Platelet Count 186 10x3/uL (130-400); RBC Distribution Width 18.3 % (11.5-14.5); Red Blood Cell (RBC) Count 2.95 mill/uL (4.70-6.10); White Blood Cell (WBC) Count 5.9 10x3/uL (4.8-10.8)
[2022-01-06 02:53] LABS: INR-International Normal Ratio 1.2; Prothrombin Time 15.5 sec (12.0-14.7)
[2022-01-06 03:00] LABS: Anion Gap 13 mmol/L (10-20); BUN (Urea Nitrogen) 23 mg/dL (8.4-25.7); Calc. Creatinine Clearance 14 mL/min (70-130); Calcium 9.5 mg/dL (7.8-10.44); Carbon Dioxide 28 mmol/L (23-31); Cardiac Risk 2.9 (Less than 4.5); Chloride 102 mmol/L (98-107); Cholesterol 102 mg/dl (< 200 Desired); Estimated GFR 13; Glucose 92 mg/dL (83-110); HDL Cholesterol 35 mg/dL (>60 Neg Risk); LDL Cholesterol, Calculated 51 mg/dL; Potassium 4.1 mmol/L (3.5-5.1); Sodium 139 mmol/L (136-145); Triglycerides 81 mg/dL (Less than 150)
[2022-01-06] MEDS ORDERED: niCARdipine 25 MG in Sodium Chloride 0.9% 250 ML 250 ML IVPB SCH (08:00)
[2022-01-06] MEDS ORDERED: niCARdipine 40MG In NaCl 40 MG/200 ML BAG IVPB SCH (08:00)
[2022-01-06] MEDS: Pantoprazole 40 MG VIAL IVP SCH (08:09)
[2022-01-06] MEDS: Aspirin 81 mg Enteric Coated Tablet PO SCH (08:09)
[2022-01-06] MEDS: Sevelamer Carbonate 800 MG TAB PO SCH ×3 (08:09→16:49)
[2022-01-06] MEDS ORDERED: FLU VACC QS2022-23(65YR UP)/PF 240 MCG/0.7 ML SYRINGE IM ONE (09:00)
[2022-01-06] MEDS: Apixaban 5 MG TAB PO SCH (21:30)
[2022-01-07 04:40] LABS: #Eosinphils 0.2 thou/uL (0.0-0.7); #Lymphocytes 0.5 thou/uL (1.20-3.40); #Monocytes 0.6 thou/uL (0.11-0.59); #Neutrophils 5.1 thou/uL (1.40-6.50); %Basophils 0.2 % (0.0-1.0); %Eosinophils 2.5 % (0.0-10.0); %Lymphocytes 8.2 % (21.0-51.0); %Monocytes 9.2 % (0.0-10.0); %Neutrophils 79.9 % (42.0-75.0); Hemoglobin 8.3 g/dL (14.0-18.0); Mean Corpuscular HGB CONC 30.5 g/dL (32.0-36.0); Mean Corpuscular Volume 98.2 fl (78.0-98.0); Mean Platelet Volume 8.2 fL (7.4-10.4); Platelet Count 158 10x3/uL (130-400); RBC Distribution Width 17.8 % (11.5-14.5); Red Blood Cell (RBC) Count 2.78 mill/uL (4.70-6.10); White Blood Cell (WBC) Count 6.4 10x3/uL (4.8-10.8)
[2022-01-07 05:07] LABS: ALT (SGPT) 7 U/L (8-55); AST (SGOT) 11 U/L (5-34); Albumin 3.3 g/dL (3.4-4.8); Alkaline Phosphatase 80 U/L (40-110); Anion Gap 15 mmol/L (10-20); BUN (Urea Nitrogen) 40 mg/dL (8.4-25.7); Bilirubin, Total 0.7 mg/dL (0.2-1.2); Calc. Creatinine Clearance 10 mL/min (70-130); Calcium 8.9 mg/dL (7.8-10.44); Carbon Dioxide 26 mmol/L (23-31); Chloride 102 mmol/L (98-107); Estimated GFR 9; Globulin 3.2 g/dL (2.4-3.5); Glucose 123 mg/dL (83-110); Potassium 4.8 mmol/L (3.5-5.1); Protein, Total 6.5 g/dL (5.8-8.1); Sodium 138 mmol/L (136-145)
[2022-01-07] MEDS: Sevelamer Carbonate 800 MG TAB PO SCH ×3 (08:46→17:43)
[2022-01-07] MEDS ORDERED: Epoetin (ESRD) 10,000 UNITS/ML VIAL SC SCH (11:00)
[2022-01-07] MEDS: NIFEdipine XL 60 MG TAB PO SCH ×2 (14:47→22:04)
[2022-01-07] MEDS: Carvedilol 6.25 MG TAB PO SCH ×2 (14:47→22:03)
[2022-01-07] MEDS: Apixaban 5 MG TAB PO SCH ×2 (14:47→22:03)
[2022-01-07] MEDS: Pantoprazole 40 MG VIAL IVP SCH (14:47)
[2022-01-07] MEDS: Aspirin 81 mg Enteric Coated Tablet PO SCH (14:47)
[2022-01-07] MEDS ORDERED: hydrALAZINE 25 MG TAB PO SCH (21:00)
[2022-01-07] MEDS: Atorvastatin Calcium 40 MG TAB PO SCH (22:03)
[2022-01-08] MEDS ORDERED: Lisinopril 2.5 MG TAB PO SCH (09:00)
[2022-01-08] MEDS: Aspirin 81 mg Enteric Coated Tablet PO SCH (09:01)
[2022-01-08] MEDS: Apixaban 5 MG TAB PO SCH ×2 (09:01→20:46)
[2022-01-08] MEDS: Sevelamer Carbonate 800 MG TAB PO SCH ×4 (09:01→18:41)
[2022-01-08] MEDS: Carvedilol 6.25 MG TAB PO SCH ×2 (09:01→20:46)
[2022-01-08] MEDS: Lisinopril 20 MG TAB PO SCH ×2 (09:01→20:46)
[2022-01-08] MEDS: Escitalopram Oxalate 10 mg Tablet PO SCH (09:01)
[2022-01-08] MEDS: NIFEdipine XL 60 MG TAB PO SCH ×2 (09:01→20:46)
[2022-01-08] MEDS: Torsemide 100 MG TAB PO SCH (09:02)
[2022-01-08] MEDS: Pantoprazole 40 MG VIAL IVP SCH (09:02)
[2022-01-08] MEDS: Atorvastatin Calcium 40 MG TAB PO SCH (20:46)
[2022-01-08] MEDS ORDERED: Labetalol HCl 100 MG TAB PO SCH (22:15)
[2022-01-09 04:38] LABS: Hemoglobin 8.6 g/dL (14.0-18.0); Mean Corpuscular HGB CONC 31.8 g/dL (32.0-36.0); Mean Corpuscular Hemoglobin 30.5 pg (27.0-31.0); Mean Corpuscular Volume 95.7 fl (78.0-98.0); Mean Platelet Volume 8.4 fL (7.4-10.4); Platelet Count 148 10x3/uL (130-400); RBC Distribution Width 17.4 % (11.5-14.5); Red Blood Cell (RBC) Count 2.83 mill/uL (4.70-6.10); White Blood Cell (WBC) Count 6.1 10x3/uL (4.8-10.8)
[2022-01-09 04:58] LABS: Anion Gap 14 mmol/L (10-20); BUN (Urea Nitrogen) 41 mg/dL (8.4-25.7); Calc. Creatinine Clearance 10 mL/min (70-130); Calcium 9.3 mg/dL (7.8-10.44); Carbon Dioxide 26 mmol/L (23-31); Chloride 101 mmol/L (98-107); Estimated GFR 9; Glucose 111 mg/dL (83-110); Potassium 4.2 mmol/L (3.5-5.1); Sodium 137 mmol/L (136-145)
[2022-01-09 07:38] VITALS: TEMP 98
[2022-01-09] MEDS: Sevelamer Carbonate 800 MG TAB PO SCH (08:55)
[2022-01-09] MEDS: Aspirin 81 mg Enteric Coated Tablet PO SCH (08:56)
[2022-01-09] MEDS: Apixaban 5 MG TAB PO SCH (08:56)
[2022-01-09] MEDS: Lisinopril 20 MG TAB PO SCH (08:57)
[2022-01-09] MEDS: NIFEdipine XL 60 MG TAB PO SCH (08:57)
[2022-01-09] MEDS: Escitalopram Oxalate 10 mg Tablet PO SCH (08:57)
[2022-01-09] MEDS: Pantoprazole 40 MG VIAL IVP SCH (08:58)
[2022-01-09] MEDS ORDERED: Labetalol HCl 100 MG TAB PO SCH (09:00)
[2022-01-09 09:12] VITALS: BP 151/67
[2022-01-09] MEDS: Torsemide 100 MG TAB PO SCH (09:13)
== END 2022-01-09 11:40 | disposition home or self-care (01) | DRG 280 ==
LOC: ERS 13:09 → CCU 18:07 → 2NO 01-06 14:43
PROVIDERS: ADMIT Hospitalist; ATTEND Internal Medicine
PROC: 5A09357 Assistance with Respiratory Ventilation, Less than 24 Consecutive Hours, Continuous Positive Airway Pressure (ICD-10-PCS; principal; 2022-01-05)
PROC: 5A1D70Z Performance of Urinary Filtration, Intermittent, Less than 6 Hours Per Day (ICD-10-PCS; 2022-01-06)
DX: I13.2 Hypertensive heart and chronic kidney disease with heart failure and with stage 5 chronic kidney disease, or end stage renal disease (principal); I21.4 Non-ST elevation (NSTEMI) myocardial infarction; I50.33 Acute on chronic diastolic (congestive) heart failure; J96.01 Acute respiratory failure with hypoxia; N18.6 End stage renal disease; I16.1 Hypertensive emergency; Z20.822 Contact with and (suspected) exposure to COVID-19; E78.5 Hyperlipidemia, unspecified; E11.22 Type 2 diabetes mellitus with diabetic chronic kidney disease; I35.0 Nonrheumatic aortic (valve) stenosis; I48.0 Paroxysmal atrial fibrillation; F03.90 Unspecified dementia, unspecified severity, without behavioral disturbance, psychotic disturbance, mood disturbance, and anxiety; E11.51 Type 2 diabetes mellitus with diabetic peripheral angiopathy without gangrene; D63.1 Anemia in chronic kidney disease; G93.89 Other specified disorders of brain; Z79.01 Long term (current) use of anticoagulants; Z79.899 Other long term (current) drug therapy; Z99.2 Dependence on renal dialysis; Z87.891 Personal history of nicotine dependence
CPT/HCPCS: 36415; 36600; 70551; 71045; 80048; 80053; 80061; 82805; 83880; 85025; 85027; 85610; 85730; 86704; 87340; 93005; 93306; 94640; 94660; 95816; 95819; 95957; 96365; 96366; 96375; C9113; J1644; J2001; J2405; J7620; Q4081

== ENCOUNTER 2022-03-26 09:38 | Inpatient (IN) | payer MEDICARE ==
[2022-03-26] MEDS ORDERED: Fentanyl CADD 100 ML IV SCH ×2 (10:00→13:15)
[2022-03-26 10:13] LABS: #Lymphocytes 0.2 thou/uL (1.20-3.40); #Monocytes 0.2 thou/uL (0.11-0.59); #Neutrophils 5.9 thou/uL (1.40-6.50); %Basophils 0.5 % (0.0-1.0); %Eosinophils 0.1 % (0.0-10.0); %Lymphocytes 3.4 % (21.0-51.0); %Monocytes 3.7 % (0.0-10.0); %Neutrophils 92.2 % (42.0-75.0); Hemoglobin 12.5 g/dL (14.0-18.0); Mean Corpuscular HGB CONC 31.4 g/dL (32.0-36.0); Mean Corpuscular Hemoglobin 30.9 pg (27.0-31.0); Mean Corpuscular Volume 98.5 fl (78.0-98.0); Mean Platelet Volume 8.7 fL (7.4-10.4); Platelet Count 149 10x3/uL (130-400); RBC Distribution Width 15.1 % (11.5-14.5); Red Blood Cell (RBC) Count 4.05 mill/uL (4.70-6.10); White Blood Cell (WBC) Count 6.4 10x3/uL (4.8-10.8)
[2022-03-26] MEDS ORDERED: niCARdipine 25 MG/10 ML VIAL ONE (10:21)
[2022-03-26 10:24] LABS: ALT (SGPT) 20 U/L (8-55); AST (SGOT) 19 U/L (5-34); Alkaline Phosphatase 102 U/L (40-110); Anion Gap 17 mmol/L (10-20); BUN (Urea Nitrogen) 26 mg/dL (8.4-25.7); Calc. Creatinine Clearance 0 mL/min (70-130); Calcium 10.3 mg/dL (7.8-10.44); Carbon Dioxide 24 mmol/L (23-31); Chloride 102 mmol/L (98-107); Estimated GFR 11; Globulin 3.8 g/dL (2.4-3.5); Glucose 147 mg/dL (83-110); INR-International Normal Ratio 1.2; Protein, Total 7.8 g/dL (5.8-8.1); Prothrombin Time 15.3 sec (12.0-14.7); Sodium 138 mmol/L (136-145)
[2022-03-26 10:25] LABS: Amphetamine Not Detected (NotDetected); Barbiturates Screen Not Detected (NotDetected); Benzodiazepine Screen Not Detected (NotDetected); Cocaine Metabolite Screen Not Detected (NotDetected); Methadone Not Detected (NotDetected); Methamphetamine Not Detected (NotDetected); Opiate Screen Not Detected (NotDetected); Oxycodone Screen Not Detected (NotDetected); Phencyclidine (PCP) Not Detected (NotDetected); THC/Cannabinoid Screen Not Detected (NotDetected); Tricyclic Screen Not Detected (NotDetected)
[2022-03-26 10:33] LABS: Acetaminophen Less than 10.0 mcg/mL (10.0-30.0); Alcohol Less than 10 mg/dL (Less than 10); CK (CPK) 88 U/L (30-200); Lipase 187 U/L (8-78); Salicylate Less than 8.0 mg/dL (15.0-30.0)
[2022-03-26 10:34] LABS: Actual Bicarbonate (HCO3a) 23.7 mEq/L (22-28); Base Excess (BEa) 1.3 mEq/L (-2.0 to +3.0); CO2 Tension 30.6 mmHg (35.0-45.0); Carboxyhemoglobin (COHb) 1.1 gm% (0.0-3.0); Hemoglobin (Hb) 12.4 g/dL (14.0-18.0); O2 Tension (PaO2), arterial 69.3 mmHg (> 70.0); pH, Arterial 7.51 (7.35-7.45)
[2022-03-26 10:35] LABS: Analyzer IN Cardio ER; Calcium, Ionized (arterial) 1.21 mmol/L (1.12-1.30); Puncture Site RRA
[2022-03-26 10:44] LABS: Bacteria/HPF None Seen HPF (None Seen); Bilirubin Negative (Negative); Blood, Urine 1+ (Negative); Clarity Clear (Clear); Glucose, Urine (Dipstick) 200 mg/dL (Negative); Ketone, Urine Negative (Negative); Leukocyte Negative Leu/uL (Negative); Nitrite Negative (Negative); Protein, Urine (Dipstick) 300 mg/dL (Neg-Trace); Specific Gravity, Urine 1.014 (1.002-1.036); Squamous Epithelial None Seen HPF (0-3); Urobilinogen Normal mg/dL (Less than 2); WBC/HPF 0-3 HPF (0-3)
[2022-03-26] MEDS ORDERED: HUMAN PROTHROMBIN COMPLX IV SCH (10:45)
[2022-03-26] MEDS ORDERED: ADMIXTURE FEE IV SCH (10:45)
[2022-03-26 11:00] LABS: SARS-CoV-2 NAA Rapid Test Not Detected (NotDetected)
[2022-03-26 11:18] LABS: CKMB 2.5 ng/mL (0-6.6)
[2022-03-26] MEDS ORDERED: Ventilator Sedation Protocol 1 EACH FS SCH (12:45)
[2022-03-26] MEDS ORDERED: niCARdipine 25 MG in Sodium Chloride 0.9% 250 ML 250 ML IVPB SCH (13:00)
[2022-03-26] MEDS ORDERED: Morphine 4 MG/ML VIAL SLOW IVP PRN ×2 (13:15→18:48)
[2022-03-26] MEDS ORDERED: DISCONTINUE PREVIOUS NARCOTIC PAIN MEDICATIONS AND BENZODIAZEPINES FS SCH (13:15)
[2022-03-26] MEDS ORDERED: Propofol 1,000 MG/100 ML VIAL IV PRN (13:15)
[2022-03-26] MEDS ORDERED: Propofol BOLUS 1,000 MG/100 ML VIAL IV PRN (13:15)
[2022-03-26] MEDS ORDERED: Lorazepam 2 MG/ML VIAL SLOW IVP PRN ×3 (13:15→19:09)
[2022-03-26] MEDS ORDERED: Fentanyl BOLUS 250 ML IVPB PRN (13:15)
[2022-03-26 13:34] VITALS: BMI 27.1
[2022-03-26 16:01] VITALS: BP 152/56
[2022-03-26] MEDS ORDERED: Scopolamine 1.5 mg/72 hour Patch TD SCH (16:45)
[2022-03-26 17:08] VITALS: TEMP 99.9
== END 2022-03-26 23:23 | disposition expired | DRG 64 ==
LOC: ERS 09:38 → CCU 09:45
PROVIDERS: ADMIT Family Medicine; ATTEND Family Medicine
PROC: 5A1935Z Respiratory Ventilation, Less than 24 Consecutive Hours (ICD-10-PCS; principal; 2022-03-26)
PROC: 0D9670Z Drainage of Stomach with Drainage Device, Via Natural or Artificial Opening (ICD-10-PCS; 2022-03-26)
PROC: 0T9B70Z Drainage of Bladder with Drainage Device, Via Natural or Artificial Opening (ICD-10-PCS; 2022-03-26)
PROC: 4A133R1 Monitoring of Arterial Saturation, Peripheral, Percutaneous Approach (ICD-10-PCS; 2022-03-26)
DX: I61.4 Nontraumatic intracerebral hemorrhage in cerebellum (principal); G93.41 Metabolic encephalopathy; J96.00 Acute respiratory failure, unspecified whether with hypoxia or hypercapnia; N18.6 End stage renal disease; I50.33 Acute on chronic diastolic (congestive) heart failure; I13.2 Hypertensive heart and chronic kidney disease with heart failure and with stage 5 chronic kidney disease, or end stage renal disease; I16.1 Hypertensive emergency; Z66 Do not resuscitate; Z20.822 Contact with and (suspected) exposure to COVID-19; G93.89 Other specified disorders of brain; I48.91 Unspecified atrial fibrillation; E78.5 Hyperlipidemia, unspecified; E11.22 Type 2 diabetes mellitus with diabetic chronic kidney disease; I61.5 Nontraumatic intracerebral hemorrhage, intraventricular; F32.A Depression, unspecified; I25.10 Atherosclerotic heart disease of native coronary artery without angina pectoris; Z87.891 Personal history of nicotine dependence; Z78.1 Physical restraint status; Z79.01 Long term (current) use of anticoagulants; Z99.2 Dependence on renal dialysis; Z98.890 Other specified postprocedural states; I25.2 Old myocardial infarction; Z79.899 Other long term (current) drug therapy; Z79.82 Long term (current) use of aspirin; Z79.84 Long term (current) use of oral hypoglycemic drugs
CPT/HCPCS: 31500; 36415; 36600; 51702; 70450; 71045; 80053; 80306; 80307; 81003; 81015; 82550; 82553; 82805; 83605; 83690; 83880; 84443; 84484; 85025; 85610; 85730; 86850; 86900; 86901; 87040; 93005; 94002; 96365; 96366; 99292; J2060; J2270; J3010; J7050; J7168; U0002